=== PATIENT | female | born 1935 | race Caucasian/White ===

== ENCOUNTER 2016-08-15 09:28 | Day surgery (SDC) | payer MEDICARE, OTHER ==
[~2016-08-15 09:28] MED LIST: LACTATED RINGERS 1,000 ML IV ONE
[2016-08-15 09:47] VITALS: RESP 18; TEMP 99.1
[2016-08-15] MEDS ORDERED: TRIAMCINOLONE ACETONIDE 40 MG/ML 1 ML VIAL ONE (10:17)
[2016-08-15] MEDS ORDERED: IOHEXOL 180 MG/ML 1 ML ML ONE (10:17)
--- NOTE | 2016-08-15 10:45 | FL ---
EXAMINATION TYPE: FL guided pain mgmt statistic DATE OF EXAM: 08/15/2016 10:38 AM COMPARISON: NONE HISTORY: Pain Fluoroscopy support supplied to the referring clinician. See dictated report from anesthesia, 8 seco nds fluoroscopy time, 3 intraoperative C-arm images document the procedure
--- NOTE | 2016-08-15 10:52 | P.PCN ---
Date of Procedure: 08/15/16 Anesthesia: local Surgeon: Jr Echeverria Pathology: none sent Condition: stable Disposition: PACU Description of Procedure: PREOPERATIVE DIAGNOSIS: 1-Lumbar radiculitis. POSTOPERATIVE DIAGNOSIS: 1-Lumbar radiculitis. PROCEDURE 1. Lumbar epidural steroid injection under fluoroscopic guidance at the L5-S1 level. 2. Lumbar epidurogram. ANESTHESIA: Local with 1% lidocaine EBL: Minimal PROCEDURE INDICATION: The patient with low back pain and radiculitis symptoms unresponsive to conservative treatment. Fluoroscopy was used to optimize visualization of the needle placement and to maximize safety. Patient scheduled for third LESI, no recent use of blood thinners. PROCEDURE DESCRIPTION / TECHNIQUE: The patient was seen and identified in the preoperative area. Risks, benefits, complications, and alternatives were discussed with the patient, including but not limited to bleeding, infection, nerve damage, allergic reactions to medications, and incomplete pain relief. The patient agreed to proceed with the procedure and signed the consent after all questions were answered. IV was started, and vital signs were stable. Patient was taken to the OR and time out was completed to confirm patient position, procedure, laterality of pain, and allergies. The patient was placed in the prone position on procedure table and a pillow was placed under the abdomen to reduce lumbar lordosis. The lumbosacral area was prepped and draped in the usual sterile fashion. Critical pause was taken. Vital signs were closely monitored during the procedure. Conscious sedation was used during the procedure to decrease patients anxiety. Using anterior-posterior fluoroscopy, the L5-S1 interlaminar space was identified and the skin over this site was marked and then infiltrated with 1% lidocaine subcutaneously in a left paramedian fashion. Subsequently, a 20-gauge 3.5" Tuohy epidural needle was inserted and advanced toward the epidural space using the Loss of resistance technique and guided by AP and lateral fluoroscopy. The correct needle position in the epidural space was verified with the injection of 2 mL of the water soluble contrast dye Omnipaque 300 contrast and observing an excellent epidurogram with the epidural spread of the dye, after negative aspiration for blood and CSF and in the absence of paresthesias. Again after negative aspiration, a 8 ml mixture containing 40 mg of Kenalog and 5 ml of preservative free Normal Saline, and 2 ml of preservative free lidocaine 1% solution was injected and a washout of epidurogram was seen. Needle was withdrawn intact, skin was cleansed, and bandages were applied. COMPLICATIONS: None COMMENTS: DISPOSITION / PLANS: The patient was placed in a supine position and transferred to the recovery area in a stable condition for observation. There was no evidence of lower extremity motor or sensory deficit after the procedure. Patient was discharged from the recovery room after meeting discharge criteria. Home discharge instructions were given to the patient by the staff. The patient was reexamined prior to discharge and there were no issues. The patient will schedule a follow up in clinic in 4-6 weeks.
[2016-08-15 10:58] VITALS: BP 151/82; PULSE 87
== END 2016-08-15 11:08 | disposition home or self-care (01) ==
LOC: ORPAIN 09:28
PROVIDERS: ATTEND Anesthesiology
DX: M54.16 Radiculopathy, lumbar region (principal); G89.29 Other chronic pain; I10 Essential (primary) hypertension; Z79.899 Other long term (current) drug therapy; Z88.0 Allergy status to penicillin; Z88.8 Allergy status to other drugs, medicaments and biological substances
CPT/HCPCS: 62322; J3301; Q9965; 62323

== ENCOUNTER → 2016-10-17 | Outpatient (CLI) | payer MEDICARE, OTHER ==
[2016-10-17 14:59] VITALS: BP 180/95; PULSE 69; RESP 16
--- NOTE | 2016-10-18 12:02 | P.PN ---
Subjective This is follow-up visit for this patient with a history of severe and chronic low back pain secondary to lumbar degenerative disc disease lumbar facet arthropathy, we have done interventional pain management injection, lumbar epidural steroid injections 3, and she continued Severe low back pain mostly on the left side, with radiation to the posterior lateral aspect of her left lower extremity 1-Mobic 7.5 daily Patient denies any side effects of the medication, denies excessive drowsiness or sleepiness, denies suicidal ideation, and reports that the current pain medication is NOT helping To control the pain and improve activity of daily living Physical Examinations : 1-Constitutiona : Cooperative , not in acute distress . 2-HEENT : nech ; supple , no Lymphadenopathy , no Thyromegaly , normal thyroid size . eyes : no ptosis , no icterus, no photophobia . ENT : normal of hearing , normal oropharynx , no Thrush . 3- Respiratory : Chest clear to auscultations Bilaterally , no wheezing , no Rhonchi . 4- Cardiovascular : regular rate and rhythem , S1 , S2 , no S3 , no S4. 5- Gastrointestinal : abdomen soft no tenderness , bowel sounds positive all four quadrents , no organomegally . 6- Genitourinary : Defferred . 7- neurologic : Cranial nerve II to XII intact , no focal neurological deffecit . 8-psychatric : alert , oriented X 3 , appropriate affect , intact judgment and insight . 9-Lymphatic : no Lymphadenopathy . 10- musculoskeltal : exams of the cervical spine = motor strength normal bilateral upper extremities facet loading test cervical area positive. exams of the Lumber spine = motor strength lower extremities ,thigh and legs .5/5 deep tendon reflexes : normal Knee Jerk , normal ankle Jerk . lumber facet Loading Test positive on the left side strait leg raising test negative bilaterally Fabere test negative bilaterally Range of motion: Range of motion in flexion of the lumbar spine 30 degrees Range of motion range of motion of extension of the lumbar spine 10 Assessment and plan = - Chronic low back pain secondary to lumbar degenerative disc disease , lumbar spondylosis with facet arthropathy without myelopathy , Patient continued to have low back pain after lumbar epidural steroid injection - diagnoses, prognosis, and treatment options including but not limited to physical therapy, surgical interventions, interventional therapies , and medication management including narcotics and adjuvant medication were discussed with the patient and all The questions answered, patient will be good candidate to have diagnostic medial branch block lumbar area on the left side She will be scheduled to have left-sided medial branch block and L3-4/ L4 5/L5-S1 Objective - Vital Signs Vital signs: Vital Signs Temp Pulse 69 10/17/16 14:46 Resp 16 10/17/16 14:46 BP 180/95 10/17/16 14:46 Pulse Ox 95 10/17/16 14:46 Intake & Output 10/17/16 10/18/16 10/18/16 18:59 06:59 18:59 Weight 60.328 kg
== END ==
LOC: PNWHC3 14:09
PROVIDERS: ATTEND Specialist
DX: M51.36 Other intervertebral disc degeneration, lumbar region (principal); M47.816 Spondylosis without myelopathy or radiculopathy, lumbar region; M46.86 Other specified inflammatory spondylopathies, lumbar region; G89.29 Other chronic pain; Z79.891 Long term (current) use of opiate analgesic
CPT/HCPCS: 99211

== ENCOUNTER 2016-11-22 06:34 | Day surgery (SDC) | payer MEDICARE, OTHER ==
[2016-11-22 07:45] VITALS: TEMP 98.3
[2016-11-22] MEDS ORDERED: LACTATED RINGERS 1,000 ML IV SCH (07:45)
--- NOTE | 2016-11-22 07:51 | P.PCN ---
Date of Procedure: 11/22/16 Preoperative Diagnosis: Lumbar spondylosis without myelopathy Postoperative Diagnosis: Same as above Procedure(s) Performed: Lumbar bilateral medial branch block under fluoroscopic guidance Anesthesia: local, other Surgeon: Zahira Galvin Pathology: none sent Condition: stable Disposition: PACU Description of Procedure: The patient was seen in the preop holding area consent was obtained then she was brought into the procedure room and placed in prone position. The patient gets pain on both sides of her spine and that's why the procedure was changed from doing medial branch block on the left side only to doing bilateral medial branch block. Skin was prepped with ChloraPrep and draped in a sterile manner. Lidocaine 1% was used to numb the skin up at the target points that were chosen as follows: For the L5-S1 level which corresponds to the dorsal ramus of L5 the target points were of the superior medial aspect of the sacral ala on each side of the spine on the AP view of fluoroscopy for the L3, and L4 medial branches the target points were the connection between the transverse process and the superior articular process of L4 and L5 vertebra respectively on the oblique view of fluoroscopy. I used 22-gauge 3-1/2 inch Quincke spinal needle for this procedure and after contacting bone at the target points mentioned above I injected 1 mL of Marcaine 0.5%. Tolerated procedure well.
[2016-11-22] MEDS ORDERED: BUPIVACAINE (PF) 0.5% 30 ML VIAL ONE (07:55)
[2016-11-22 08:27] VITALS: BP 157/87; PULSE 66; RESP 16
--- NOTE | 2016-11-22 09:29 | FL ---
EXAMINATION TYPE: FL guided pain mgmt statistic DATE OF EXAM: 11/22/2016 8:20 AM HISTORY: Pain bilat lumbar facets. dr guardado. 8 sec fl time. 3 pics scanned
== END 2016-11-22 08:31 | disposition home or self-care (01) ==
LOC: ORPAIN 06:34
PROVIDERS: ATTEND Anesthesiology
DX: M47.816 Spondylosis without myelopathy or radiculopathy, lumbar region (principal); Z88.0 Allergy status to penicillin

== ENCOUNTER → 2017-10-29 | Outpatient (CLI) | payer MEDICARE, OTHER ==
--- NOTE | 2017-10-29 13:40 | MR ---
EXAMINATION TYPE: MR lumbar spine wo con DATE OF EXAM: 10/29/2017 COMPARISON: 04/08/2016 HISTORY: Back pain radiating to left leg TECHNIQUE: T1 and T2 axial and sagittal images of the lumbar spine are submitted. FINDINGS: There is no abnormal signal seen within the visualized spinal cord or paraspinal soft tissu es. At L1-2 there is moderate degenerative disc disease and facet arthropathy with ligamentum flavum hype rtrophy and circumferential disc bulging. Mild to moderate bilateral foraminal encroachment and borde rline canal stenosis. Stable rounded area of low signal within the L2 vertebral segment unchanged fro m the prior exam of 2016. At L2-3 there is moderate degenerative disc disease with facet hypertrophy and ligamentum flavum hype rtrophy. Diffuse disc bulging noted. There is effacement of thecal sac and mild central stenosis. Fi ndings stable. At L3-4 there is degenerative disc disease with diffuse disc bulging. Facet arthropathy and ligamentu m flavum hypertrophy are noted. There is mild central stenosis and mild bilateral foraminal encroachm ent. Findings stable. At L4-5 there is moderate to severe degenerative disc disease. More advanced facet arthropathy and li gamentum flavum hypertrophy noted and there is a central and left paracentral disc herniation. This r esults in severe canal stenosis and moderate to severe left foraminal encroachment. Mild right-sided foraminal encroachment. Finding is similar to the prior exam. At L5-S1 there is mild disc desiccation with facet arthropathy and ligamentum flavum hypertrophy. Charu ral foramina are patent bilaterally. No Canal stenosis. IMPRESSION: 1. Multilevel degenerative disc disease and hypertrophic changes with multilevel disc bulging. Findin gs result in multilevel canal stenosis which appears to be stable and the most marked findings seen a t L4-L5 where a central and left paracentral disc herniation results in severe canal stenosis. 2. Rounded bone lesion L2 vertebral segment appears low in signal on T1 and T2-weighted images and is unchanged from 2016.
== END | disposition home or self-care (01) ==
LOC: RADMRIMAIN 12:42
PROVIDERS: ATTEND Internal Medicine
DX: M48.061 Spinal stenosis, lumbar region without neurogenic claudication (principal); M51.16 Intervertebral disc disorders with radiculopathy, lumbar region; M53.86 Other specified dorsopathies, lumbar region; M89.8X8 Other specified disorders of bone, other site
CPT/HCPCS: 72148

== ENCOUNTER → 2018-03-11 | Outpatient (CLI) | payer MEDICARE, OTHER ==
--- NOTE | 2018-03-11 15:18 | US ---
EXAMINATION TYPE: US pelvic complete DATE OF EXAM: 03/11/2018 COMPARISON: NONE CLINICAL HISTORY: N81.9 Pelvic Prolapse. Patient was told possibly bowel prolapsing into vagina; harris ent denies pain and no vaginal bleeding; TECHNIQUE: Transabdominal (TA). Transabdominal sonographic images of the pelvis were acquired. Date of LMP: approximately age 55 EXAM MEASUREMENTS: Uterus: 5.6 x 4.4 x 2.3 cm Endometrial Stripe: 2.7mm Right Ovary: 1.6 x 1.3 x 1.1 cm Left Ovary: 1.8 x 1.4 x 1.1 cm 1. Uterus: Anteverted; heterogeneous appearance 2. Endometrium: thickness is wnl for post menopause 3. Right Ovary: appears wnl 4. Left Ovary: appears wnl 5. Bilateral Adnexa: wnl 6. Posterior cul-de-sac: wnl IMPRESSION: 1. No abnormal endometrial thickening. Unremarkable appearance of the ovaries. 2. Bowel. Shadowing in evaluation for prolapse is limited. CT pelvis could be performed to evaluate f or pelvic floor relaxation and rectocele if there is further concern.
== END | disposition home or self-care (01) ==
LOC: RADUSWWP 14:14
PROVIDERS: ATTEND Obstetrics & Gynecology
DX: N81.9 Female genital prolapse, unspecified (principal)
CPT/HCPCS: 76856

== ENCOUNTER → 2018-11-27 | Outpatient (CLI) | payer MEDICARE, OTHER ==
--- NOTE | 2018-11-28 10:42 | CT ---
EXAMINATION TYPE: CT orbits wo/w con DATE OF EXAM: 11/27/2018 COMPARISON: 12/23/2010 HISTORY: cyst above right eye CT DLP: 768.8 mGycm Automated exposure control for dose reduction was used. CONTRAST: Performed with IV Contrast, patient injected with 80cc mL of Isovue 300. FINDINGS: Maxillary spine is intact. There is opacification with air-fluid level within the left maxillary sinu s. There are scattered areas of ethmoid air cell mucosal thickening. Sphenoid sinuses are clear. Fron angela sinuses are clear. Mastoid air cells are clear. Torus tubarius and fossa of Rosenmuller appear wi thin normal limits. The globes are symmetrical. Intraconal and extraconal fat appears normal. Extraocular muscles are nor mal. There is a oval solid appearing density along the medial upper right orbit measuring 1.2 x 0.7 cm. Th is was not present in 2010. This comes in close approximation with the globe fat line appears preserv ed adjacent separate. This is anterior to the ocular muscles. This does appear to be in close approxi mation with the superior ophthalmic vein. IMPRESSION: 1. SOLID APPEARING 1.2 X 0.7 CM AREA SUPERIOR MEDIAL RIGHT SUPERFICIAL SOFT TISSUES. 2. ACUTE LEFT MAXILLARY SINUSITIS. MUCOSAL THICKENING IS THROUGH BILATERAL ETHMOID AIR CELLS.
== END | disposition home or self-care (01) ==
LOC: RADCTMAIN 15:42
PROVIDERS: ATTEND Ophthalmology
DX: H05.811 Cyst of right orbit (principal); Z88.0 Allergy status to penicillin; Z91.018 Allergy to other foods
CPT/HCPCS: 82565; 84520; 70482; 36415; Q9967

== ENCOUNTER → 2019-03-26 | Outpatient (CLI) | payer MEDICARE, OTHER ==
--- NOTE | 2019-03-27 14:31 | MM ---
Reason for exam: screening (asymptomatic). Last mammogram was performed 3 years and 5 months ago. History: Patient is postmenopausal. Took estrogen for 5 years beginning at age 55. Physical Findings: A clinical breast exam by your physician is recommended on an annual basis and results should be correlated with mammographic findings. MG 3D Screening Mammo W/Cad Bilateral CC and MLO view(s) were taken. Prior study comparison: October 21, 2015, bilateral MG screening mammo w CAD. August 14, 2013, [facility] DIGITAL RIGHT MAMMOGRAM w/CAD. The breast tissue is heterogeneously dense. This may lower the sensitivity of mammography. There are benign appearing round calcifications in the right anterior breast. Asymmetric breast tissue left inferior breast, stable. There is no discrete abnormality. ASSESSMENT: Benign, BI-RAD 2 RECOMMENDATION: Routine screening mammogram of both breasts in 1 year.
== END | disposition home or self-care (01) ==
LOC: RADMAMWWP 10:53
PROVIDERS: ATTEND Internal Medicine
DX: Z12.31 Encounter for screening mammogram for malignant neoplasm of breast (principal)
CPT/HCPCS: 77063; 77067

== ENCOUNTER 2019-05-07 10:18 | Emergency (ER) | payer MEDICARE, OTHER ==
[2019-05-07 10:24] VITALS: RESP 18; TEMP 97.5
[2019-05-07] MEDS ORDERED: SODIUM CHLORIDE 0.9% 1,000 ML IV STA (10:48)
[2019-05-07] MEDS ORDERED: ONDANSETRON 4 MG/2 ML VIAL IVP STA (10:48)
[2019-05-07] MEDS ORDERED: MECLIZINE 12.5 MG TAB PO STA (10:48)
--- NOTE | 2019-05-07 10:54 | ED ---
General Adult HPI - General Chief complaint: Nausea/Vomiting/Diarrhea Stated complaint: abdominal pain/vomiting Time Seen by Provider: 05/07/19 10:37 Source: patient, RN notes reviewed Mode of arrival: wheelchair Limitations: no limitations - History of Present Illness Initial comments: This 83-year-old female presents emergency Department chief complaint of dizziness, nausea vomiting. Patient states last night she ate some spinach steak. Patient states that she started feeling ill a few hours after which she started vomiting. Patient states she felt dizzy woke up today dry heaving felt dizzy. Patient denies any current headache, blurred vision. Patient states that she says dizziness at rest but is slightly improved. She states it greatly increases with standing up. She states that she gets hot and cold flashes. Denies any chest pain or palpitations. Patient does have a history of hypertension and hypothyroidism. Patient denies any fevers or chills no cough cold-like symptoms no sick contacts. - Related Data Home Medications Medication Instructions Recorded Confirmed Multivitamins, Thera [Multivitamin] 1 tab PO DAILY 05/03/16 05/07/19 ALPRAZolam [Xanax] 0.5 mg PO DAILY PRN 05/07/19 05/07/19 Calcium Polycarbophil [Fibercon] 625 mg PO DAILY 05/07/19 05/07/19 Levothyroxine Sodium [Synthroid] 50 mcg PO DAILY 05/07/19 05/07/19 Losartan [Cozaar] 50 mg PO DAILY 05/07/19 05/07/19 Lutein 20 mg PO DAILY 05/07/19 05/07/19 Hankamer-3 Fatty Acids/Fish Oil [Fish 1 cap PO BID 05/07/19 05/07/19 Oil 1,000 mg Softgel] Triamterene-Hctz 37.5-25Mg 1 cap PO DAILY 05/07/19 05/07/19 [Dyazide 37.5-25 Capsule] Verapamil HCl [Verapamil ER] 120 mg PO DAILY 05/07/19 05/07/19 Vit C/E/Zn/Coppr/Lutein/Zeaxan 1 cap PO BID 05/07/19 05/07/19 [Preservision Areds 2 Softgel] cycloSPORINE [Restasis] 1 drop BOTH EYES BID 05/07/19 05/07/19 Previous Rx's Medication Instructions Recorded Meclizine [Antivert] 25 mg PO TID PRN #15 tab 05/07/19 Ondansetron Odt [Zofran Odt] 4 mg PO Q8HR PRN #14 tab 05/07/19 Allergies Allergy/AdvReac Type Severity Reaction Status Date / Time Penicillins Allergy Rash/Hives Verified 05/07/19 10:39 caffeine AdvReac Nausea & Verified 05/07/19 10:39 Vomiting fentanyl AdvReac Nausea & Verified 05/07/19 10:39 Vomiting midazolam [From Versed] AdvReac Nausea & Verified 05/07/19 10:39 Vomiting Review of Systems ROS Statement: Those systems with pertinent positive or pertinent negative responses have been documented in the HPI. ROS Other: All systems not noted in ROS Statement are negative. Past Medical History Past Medical History: Hypertension, Thyroid Disorder Additional Past Medical History / Comment(s): pain left leg bulging disc and pinched nerve History of Any Multi-Drug Resistant Organisms: None Reported Past Surgical History: Cholecystectomy Past Anesthesia/Blood Transfusion Reactions: Motion Sickness, Postoperative Nausea & Vomiting (PONV) Past Psychological History: No Psychological Hx Reported Smoking Status: Former smoker Past Alcohol Use History: Occasional Past Drug Use History: None Reported - Past Family History Mother Family Medical History: Cancer Additional Family Medical History / Comment(s): lung Father Family Medical History: Cancer Additional Family Medical History / Comment(s): sinuses General Exam Limitations: no limitations General appearance: alert, in no apparent distress Head exam: Present: atraumatic, normocephalic, normal inspection Eye exam: Present: normal appearance, PERRL, EOMI. Absent: scleral icterus, conjunctival injection, periorbital swelling ENT exam: Present: normal exam, normal oropharynx, mucous membranes moist, TM's normal bilaterally Neck exam: Present: normal inspection, full ROM. Absent: tenderness, meningismus, lymphadenopathy Respiratory exam: Present: normal lung sounds bilaterally. Absent: respiratory distress, wheezes, rales, rhonchi, stridor Cardiovascular Exam: Present: regular rate, normal rhythm, normal heart sounds. Absent: systolic murmur, diastolic murmur, rubs, gallop, clicks GI/Abdominal exam: Present: soft, normal bowel sounds. Absent: distended, tenderness, guarding, rebound, rigid Neurological exam: Present: alert, oriented X3, CN II-XII intact Skin exam: Present: warm, dry, intact, normal color. Absent: rash Course Vital Signs 05/07/19 05/07/19 10:22 12:51 Temperature 97.5 F L Pulse Rate 78 70 Respiratory 18 18 Rate Blood Pressure 198/84 162/99 O2 Sat by Pulse 98 96 Oximetry EKG Findings - EKG Comments: EKG Findings:: EKG performed at 12:16 sinus rhythm with PAC, rate of 70. 24 QRS 82 QT/QTC 424/457 - EKG Results: EKG: interpreted by [facility] Medical Decision Making - Medical Decision Making Patient's workup was benign including labs, EKG and CT of brain. Patient was hydrated, given antiemetics and antiemetics and Antivert. Patient feels greatly improved she is a plan but no dizziness. Patient be discharged return parameters discussed. - Lab Data Result diagrams: 05/07/19 11:15 05/07/19 11:15 Lab Results 05/07/19 05/07/19 05/07/19 Range/Units 11:15 11:15 11:15 WBC 6.0 (3.8-10.6) k/uL RBC 4.66 (3.80-5.40) m/uL Hgb 14.9 (11.4-16.0) gm/dL Hct 43.8 (34.0-46.0) % MCV 94.0 (80.0-100.0) fL MCH 31.9 (25.0-35.0) pg MCHC 33.9 (31.0-37.0) g/dL RDW 12.7 (11.5-15.5) % Plt Count 172 (150-450) k/uL Neutrophils % 79 % Lymphocytes % 10 % Monocytes % 6 % Eosinophils % 1 % Basophils % 0 % Neutrophils # 4.7 (1.3-7.7) k/uL Lymphocytes # 0.6 L (1.0-4.8) k/uL Monocytes # 0.4 (0-1.0) k/uL Eosinophils # 0.1 (0-0.7) k/uL Basophils # 0.0 (0-0.2) k/uL Sodium 139 (137-145) mmol/L Potassium 4.4 (3.5-5.1) mmol/L Chloride 106 (98-107) mmol/L Carbon Dioxide 23 (22-30) mmol/L Anion Gap 10 mmol/L BUN 29 H (7-17) mg/dL Creatinine 0.89 (0.52-1.04) mg/dL Est GFR (CKD-EPI)AfAm 69 (>60 ml/min/1.73 sqM) Est GFR (CKD-EPI)NonAf 60 (>60 ml/min/1.73 sqM) Glucose 110 H (74-99) mg/dL Calcium 10.0 (8.4-10.2) mg/dL Total Bilirubin 0.7 (0.2-1.3) mg/dL AST 37 H (14-36) U/L ALT 20 (9-52) U/L Alkaline Phosphatase 66 (38-126) U/L Troponin I <0.012 (0.000-0.034) ng/mL Total Protein 7.7 (6.3-8.2) g/dL Albumin 4.7 (3.5-5.0) g/dL Lipase 92 (23-300) U/L Urine Color Urine Appearance (Clear) Urine pH (5.0-8.0) Ur Specific [place] (1.001-1.035) Urine Protein (Negative) Urine Glucose (UA) (Negative) Urine Ketones (Negative) Urine Blood (Negative) Urine Nitrite (Negative) Urine Bilirubin (Negative) Urine Urobilinogen (<2.0) mg/dL Ur Leukocyte Esterase (Negative) Urine RBC (0-5) /hpf Urine WBC (0-5) /hpf Ur Squamous Epith Cells (0-4) /hpf Urine Bacteria (None) /hpf Urine Mucus (None) /hpf 05/07/19 Range/Units 12:56 WBC (3.8-10.6) k/uL RBC (3.80-5.40) m/uL Hgb (11.4-16.0) gm/dL Hct (34.0-46.0) % MCV (80.0-100.0) fL MCH (25.0-35.0) pg MCHC (31.0-37.0) g/dL RDW (11.5-15.5) % Plt Count (150-450) k/uL Neutrophils % % Lymphocytes % % Monocytes % % Eosinophils % % Basophils % % Neutrophils # (1.3-7.7) k/uL Lymphocytes # (1.0-4.8) k/uL Monocytes # (0-1.0) k/uL Eosinophils # (0-0.7) k/uL Basophils # (0-0.2) k/uL Sodium (137-145) mmol/L Potassium (3.5-5.1) mmol/L Chloride (98-107) mmol/L Carbon Dioxide (22-30) mmol/L Anion Gap mmol/L BUN (7-17) mg/dL Creatinine (0.52-1.04) mg/dL Est GFR (CKD-EPI)AfAm (>60 ml/min/1.73 sqM) Est GFR (CKD-EPI)NonAf (>60 ml/min/1.73 sqM) Glucose (74-99) mg/dL Calcium (8.4-10.2) mg/dL Total Bilirubin (0.2-1.3) mg/dL AST (14-36) U/L ALT (9-52) U/L Alkaline Phosphatase (38-126) U/L Troponin I (0.000-0.034) ng/mL Total Protein (6.3-8.2) g/dL Albumin (3.5-5.0) g/dL Lipase (23-300) U/L Urine Color Yellow Urine Appearance Clear (Clear) Urine pH 5.5 (5.0-8.0) Ur Specific [place] 1.019 (1.001-1.035) Urine Protein Negative (Negative) Urine Glucose (UA) Negative (Negative) Urine Ketones 1+ H (Negative) Urine Blood Negative (Negative) Urine Nitrite Negative (Negative) Urine Bilirubin Negative (Negative) Urine Urobilinogen <2.0 (<2.0) mg/dL Ur Leukocyte Esterase Large H (Negative) Urine RBC 1 (0-5) /hpf Urine WBC 7 H (0-5) /hpf Ur Squamous Epith Cells 2 (0-4) /hpf Urine Bacteria Few H (None) /hpf Urine Mucus Occasional H (None) /hpf Disposition Clinical Impression: Dehydration, Nausea & vomiting, Vertigo Disposition: HOME SELF-CARE Condition: Stable Instructions (If sedation given, give patient instructions): Acute Nausea and Vomiting (ED), Vertigo (ED) Additional Instructions: Please return to the Emergency Department if symptoms worsen or any other concerns. Prescriptions: Meclizine [Antivert] 25 mg PO TID PRN #15 tab PRN Reason: Vertigo Ondansetron Odt [Zofran Odt] 4 mg PO Q8HR PRN #14 tab PRN Reason: Nausea Is patient prescribed a controlled substance at d/c from ED?: No Referrals: Clem Mercado MD [Primary Care Provider] - 1-2 days Time of Disposition: 14:02
[2019-05-07 11:29] LABS: Basophils % (A) 0 %; Eosinophils # (A) 0.1 k/uL (0-0.7); Eosinophils % (A) 1 %; HCT 43.8 % (34.0-46.0); HGB 14.9 gm/dL (11.4-16.0); Lymphocytes # (A) 0.6 k/uL (1.0-4.8); Lymphocytes % (A) 10 %; MCH 31.9 pg (25.0-35.0); MCHC 33.9 g/dL (31.0-37.0); Mean Platelet Volume 6.8; Monocytes # (A) 0.4 k/uL (0-1.0); Monocytes % (A) 6 %; Neutrophils # (A) 4.7 k/uL (1.3-7.7); Neutrophils % (A) 79 %; Platelet Count 172 k/uL (150-450); RBC 4.66 m/uL (3.80-5.40); RDW 12.7 % (11.5-15.5)
[2019-05-07 11:50] LABS: Albumin 4.7 g/dL (3.5-5.0); Total Bilirubin 0.7 mg/dL (0.2-1.3); Total Protein 7.7 g/dL (6.3-8.2)
[2019-05-07 11:51] LABS: Potassium 4.4 mmol/L (3.5-5.1)
--- NOTE | 2019-05-07 12:00 | CT ---
EXAMINATION TYPE: CT brain wo con DATE OF EXAM: 05/07/2019 COMPARISON: Prior CT brain 11/20/2014 HISTORY: Dizziness CT DLP: 1055.4 mGycm Automated exposure control for dose reduction was used. Helical imaging through the brain. FINDINGS: Exam is stable. There is no hemorrhage or hydrocephalus. Some cerebral vascular calcifications are no hero. Atrophy is likely age-related. Periventricular white matter shows patchy low attenuation. Some p robable choroidal fissure cysts on the left are again noted. The calvarium is intact. Paranasal sinus es and mastoid air cells as visualized are normal. Orbits show symmetric appearance in the visualized portions. IMPRESSION: NO ACUTE ABNORMALITY. 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
[2019-05-07 12:54] VITALS: BP 162/99; PULSE 70
[2019-05-07] MEDS ORDERED: METOCLOPRAMIDE 5 MG/ML 2 ML VIAL IVP STA (13:26)
[2019-05-07 13:37] LABS: Appearance,Urine Clear (Clear); Bacteria,Urine Few /hpf; Bilirubin,Urine Negative (Negative); Blood,Urine Negative (Negative); Color,Urine Yellow; Glucose,Urine (UA) Negative (Negative); Ketones,Urine 1+ (Negative); Leukocyte Esterase,Urine Large (Negative); Mucus,Urine Occasional /hpf; Nitrite,Urine Negative (Negative); PH, Urine 5.5 (5.0-8.0); Protein,Urine Negative (Negative); RBC,Urine 1 /hpf (0-5); Specific Gravity,Urine 1.019 (1.001-1.035); Squamous Epithelial Cell,Urine 2 /hpf (0-4); Urobilinogen,Urine <2.0 mg/dL (<2.0)
== END 2019-05-07 14:19 | disposition home or self-care (01) ==
LOC: EC 10:18
DX: E86.0 Dehydration (principal); R11.2 Nausea with vomiting, unspecified; I10 Essential (primary) hypertension; E03.9 Hypothyroidism, unspecified; E07.9 Disorder of thyroid, unspecified; Z79.890 Hormone replacement therapy; Z79.899 Other long term (current) drug therapy; Z88.0 Allergy status to penicillin; Z88.5 Allergy status to narcotic agent; Z88.8 Allergy status to other drugs, medicaments and biological substances; Z91.048 Other nonmedicinal substance allergy status; Z87.891 Personal history of nicotine dependence; Z90.49 Acquired absence of other specified parts of digestive tract
CPT/HCPCS: 36415; 93005; 80053; 83690; 84484; 85025; 81001; 70450; 96374; 96375; 96361 ×3; 99284; J2765; J2405

== ENCOUNTER 2019-08-09 12:24 | Emergency (ER) | payer MEDICARE, OTHER ==
[2019-08-09 12:37] VITALS: BP 137/76; PULSE 69; RESP 16; TEMP 97.5
--- NOTE | 2019-08-09 12:51 | ED ---
Upper Extremity HPI - General Chief Complaint: Extremity Injury, Upper Stated Complaint: Fall Time Seen by Provider: 08/09/19 12:37 Source: patient, RN notes reviewed Mode of arrival: ambulatory Limitations: no limitations - History of Present Illness Initial Comments: This 84-year-old female who states she slipped and fell in the shower earlier today when reaching for something she states for was slippery she fell onto her right forearm she complains or right forearm pain also right distal anterior lateral leg pain. She does state the leg pain has been a while since dropping a paper weight on it lasts brain but she's not sure she reinjured it or not. She did catch herself so she did fall and told a controlled fashion. No head neck or back pain no other modifying factors MD Complaint: Injury to:: right, forearm - Related Data Home Medications Medication Instructions Recorded Confirmed Multivitamins, Thera [Multivitamin] 1 tab PO DAILY 05/03/16 05/07/19 ALPRAZolam [Xanax] 0.5 mg PO DAILY PRN 05/07/19 05/07/19 Calcium Polycarbophil [Fibercon] 625 mg PO DAILY 05/07/19 05/07/19 Levothyroxine Sodium [Synthroid] 50 mcg PO DAILY 05/07/19 05/07/19 Losartan [Cozaar] 50 mg PO DAILY 05/07/19 05/07/19 Lutein 20 mg PO DAILY 05/07/19 05/07/19 [place]-3 Fatty Acids/Fish Oil [Fish 1 cap PO BID 05/07/19 05/07/19 Oil 1,000 mg Softgel] Triamterene-Hctz 37.5-25Mg 1 cap PO DAILY 05/07/19 05/07/19 [Dyazide 37.5-25 Capsule] Verapamil HCl [Verapamil ER] 120 mg PO DAILY 05/07/19 05/07/19 Vit C/E/Zn/Coppr/Lutein/Zeaxan 1 cap PO BID 05/07/19 05/07/19 [Preservision Areds 2 Softgel] cycloSPORINE [Restasis] 1 drop BOTH EYES BID 05/07/19 05/07/19 Previous Rx's Medication Instructions Recorded Meclizine [Antivert] 25 mg PO TID PRN #15 tab 05/07/19 Ondansetron Odt [Zofran Odt] 4 mg PO Q8HR PRN #14 tab 05/07/19 Allergies Allergy/AdvReac Type Severity Reaction Status Date / Time Penicillins Allergy Rash/Hives Verified 08/09/19 12:35 caffeine AdvReac Nausea & Verified 08/09/19 12:35 Vomiting fentanyl AdvReac Nausea & Verified 08/09/19 12:35 Vomiting midazolam [From Versed] AdvReac Nausea & Verified 08/09/19 12:35 Vomiting Review of Systems ROS Statement: Those systems with pertinent positive or pertinent negative responses have been documented in the HPI. ROS Other: All systems not noted in ROS Statement are negative. Past Medical History Past Medical History: Hypertension, Thyroid Disorder Additional Past Medical History / Comment(s): pain left leg bulging disc and pinched nerve History of Any Multi-Drug Resistant Organisms: None Reported Past Surgical History: Cholecystectomy Past Anesthesia/Blood Transfusion Reactions: Motion Sickness, Postoperative Nausea & Vomiting (PONV) Past Psychological History: No Psychological Hx Reported Smoking Status: Former smoker Past Alcohol Use History: Occasional Past Drug Use History: None Reported - Past Family History Mother Family Medical History: Cancer Additional Family Medical History / Comment(s): lung Father Family Medical History: Cancer Additional Family Medical History / Comment(s): sinuses General Exam - General Exam Comments Initial Comments: This is a well-developed well-nourished awake alert oriented history female with a [place] Coma Scale of 15 Limitations: no limitations General appearance: alert, in no apparent distress Head exam: Present: atraumatic, normocephalic, normal inspection Eye exam: Present: normal appearance, PERRL, EOMI. Absent: scleral icterus, conjunctival injection, periorbital swelling ENT exam: Present: normal exam, mucous membranes moist Neck exam: Present: normal inspection, full ROM. Absent: tenderness, meningismus, lymphadenopathy Respiratory exam: Absent: respiratory distress, wheezes, rales, rhonchi, stridor Cardiovascular Exam: Present: regular rate, normal rhythm, normal heart sounds. Absent: systolic murmur, diastolic murmur, rubs, gallop, clicks GI/Abdominal exam: Absent: distended, tenderness, guarding, rebound, rigid Extremities exam: Present: full ROM, normal capillary refill, other (Tennis palpation of the mid right medial forearm with tenderness palpation evidence of a hematoma. No open wound seen. No sensorimotor vascular deficits also tenderness palpation of the distal right anterior lateral tibia no open wound seen. No sensorimotor vascular deficits). Absent: tenderness, pedal edema, joint swelling, calf tenderness Back exam: Present: normal inspection Neurological exam: Present: alert, oriented X3, CN II-XII intact Psychiatric exam: Present: normal affect, normal mood Skin exam: Present: warm, dry, intact, normal color. Absent: rash Course Vital Signs 08/09/19 12:33 Temperature 97.5 F L Pulse Rate 69 Respiratory 16 Rate Blood Pressure 137/76 O2 Sat by Pulse 98 Oximetry Medical Decision Making - Medical Decision Making I did discuss findings with patient the presentation consistent with right forearm contusion also right leg contusion to Medicare indicated only at this time. - Radiology Data Radiology results: image reviewed (I did review the imaging no acute findings.) Disposition Clinical Impression: Contusion of right forearm, Contusion of right leg Disposition: HOME SELF-CARE Condition: Good Instructions (If sedation given, give patient instructions): Contusion in Adults (ED) Additional Instructions: Tylenol for pain as needed, ice times 2448 hrs. when necessary Is patient prescribed a controlled substance at d/c from ED?: No Referrals: Clem Mercado MD [Primary Care Provider] - 1-2 days
--- NOTE | 2019-08-09 13:31 | XR ---
EXAMINATION TYPE: XR forearm RT , 2 VIEWS DATE OF EXAM ORDERED: 08/09/2019 HISTORY: Fall in shower with mid forearm pain. COMPARISON: None. FINDINGS: No long bone fracture other bony lesion is seen. IMPRESSION: NO ACUTE OSSEOUS LESION.
--- NOTE | 2019-08-09 13:32 | XR ---
EXAMINATION TYPE: XR tibia fibula RT , 2 VIEWS DATE OF EXAM ORDERED: 08/09/2019 HISTORY: Fall in shower with right tib-fib pain. COMPARISON: None. FINDINGS: No long bone fracture or dislocation is seen. No ankle joint effusion is seen. IMPRESSION: NO ACUTE OSSEOUS LESION.
== END 2019-08-09 13:47 | disposition home or self-care (01) ==
LOC: EC 12:24
DX: S50.11XA Contusion of right forearm, initial encounter (principal); S80.11XA Contusion of right lower leg, initial encounter; I10 Essential (primary) hypertension; E07.9 Disorder of thyroid, unspecified; Z87.891 Personal history of nicotine dependence; Z88.0 Allergy status to penicillin; Z88.5 Allergy status to narcotic agent; Z88.8 Allergy status to other drugs, medicaments and biological substances; Z79.890 Hormone replacement therapy; Z79.899 Other long term (current) drug therapy; W18.2XXA Fall in (into) shower or empty bathtub, initial encounter; Y93.89 Activity, other specified; Y92.002 Bathroom of unspecified non-institutional (private) residence as the place of occurrence of the external cause
CPT/HCPCS: 99283

== ENCOUNTER → 2019-09-17 | Outpatient (CLI) | payer MEDICARE, OTHER ==
--- NOTE | 2019-09-17 15:50 | CT ---
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 TECHNIQUE: Contiguous axial scanning of the chest without IV contrast. Coronal and sagittal reconstru ctions performed. CT DLP: 141.3 mGycm Automated exposure control for dose reduction was used. FINDINGS: Heart normal size without pericardial effusion. Scattered coronary artery calcifications are present. Some focal fluid in the anterior mediastinum measures 4.2 x 1.8 x 1.3 cm (axial image 28 and sagitta l image 51) and could represent fluid within a pericardial recess or a pericardiac cyst. Moderate atherosclerotic arch calcifications with conventional arch vessel branching anatomy. Ectatic upper descending thoracic aorta at 3.2 cm. 7 mm precarinal lymph node. Otherwise, no thoracic lymphadenopathy by CT size criteria. Mild biapical pleural-parenchymal scarring. Mild centrilobular emphysema. Subpleural reticulations an d minimal traction bronchiectasis within the basilar lower lobes. 4 mm peripheral right lower lobe pulmonary nodule, axial image 33 No consolidation or pleural effusion. Visualized upper abdomen shows moderate atherosclerotic calcifications throughout the abdominal aorta . 5 mm nonobstructive left renal calculus. Mild to moderate stool burden. Bones: Mild degenerative disc disease within the thoracic spine. IMPRESSION: 1. SOME BIBASILAR INTERSTITIAL FIBROSIS WITH MILD TRACTION BRONCHIOLECTASIS. 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 FINDINGS MAY ALSO BE SEEN WITH CONNECTIVE TISSUE DISORDERS. 2. NO SUSPICIOUS THORACIC LYMPHADENOPATHY. 3. ONE-YEAR FOLLOW-UP CT CHEST RECOMMENDED FOR A 4 MM RIGHT LOWER LOBE PULMONARY NODULE. 4. A 4.2 X 1.8 CM AREA OF FOCAL FLUID WITHIN THE ANTERIOR MEDIASTINUM COULD REPRESENT FLUID HEIGHT WI THIN A PERICARDIAL RECESS OR PERICARDIAC CYST. 5. A 5 MM NONOBSTRUCTIVE LEFT RENAL CALCULUS.
== END | disposition home or self-care (01) ==
LOC: RADCTMAIN 11:52
PROVIDERS: ATTEND Internal Medicine Hematology & Oncology
DX: J47.9 Bronchiectasis, uncomplicated (principal); J84.10 Pulmonary fibrosis, unspecified; R91.1 Solitary pulmonary nodule; C88.4 Extranodal marginal zone B-cell lymphoma of mucosa-associated lymphoid tissue [MALT-lymphoma]; Z88.0 Allergy status to penicillin
CPT/HCPCS: 36415; 71250; 82565; 84520

== ENCOUNTER 2019-10-05 10:52 | Emergency (ER) | payer MEDICARE, OTHER ==
[2019-10-05 11:16] VITALS: BP 154/85; PULSE 70; RESP 18; TEMP 97.8
--- NOTE | 2019-10-05 11:33 | ED ---
ENT HPI - General Chief complaint: ENT Stated complaint: Post Op Ear Pain Time Seen by Provider: 10/05/19 11:10 Source: patient, RN notes reviewed, old records reviewed Mode of arrival: ambulatory Limitations: no limitations - History of Present Illness Initial comments: Patient is a 84-year-old female who presents emergency department today from bleeding from her right TM. Patient reports that she had a myringotomy done on September [address] Weber in his office due to history of vertigo. Patient reports that she then developed an infection within the ear and is currently taking clindamycin and using ofloxacin drops. Patient reports that today she coughed and suddenly felt blood coming from the right eardrum. She reports that she is not on blood thinners. She denies any severe headache or fever. She denies any neck pain or rigidity. Patient states that she has been taking the clindamycin and the past few days and has another 7-10 days to finish this. Patient states that she has no significant dizziness at this time. She does report hearing loss. - Related Data Home Medications Medication Instructions Recorded Confirmed Multivitamins, Thera [Multivitamin] 1 tab PO DAILY 05/03/16 05/07/19 ALPRAZolam [Xanax] 0.5 mg PO DAILY PRN 05/07/19 05/07/19 Calcium Polycarbophil [Fibercon] 625 mg PO DAILY 05/07/19 05/07/19 Levothyroxine Sodium [Synthroid] 50 mcg PO DAILY 05/07/19 05/07/19 Losartan [Cozaar] 50 mg PO DAILY 05/07/19 05/07/19 Lutein 20 mg PO DAILY 05/07/19 05/07/19 [place]-3 Fatty Acids/Fish Oil [Fish 1 cap PO BID 05/07/19 05/07/19 Oil 1,000 mg Softgel] Triamterene-Hctz 37.5-25Mg 1 cap PO DAILY 05/07/19 05/07/19 [Dyazide 37.5-25 Capsule] Verapamil HCl [Verapamil ER] 120 mg PO DAILY 05/07/19 05/07/19 Vit C/E/Zn/Coppr/Lutein/Zeaxan 1 cap PO BID 05/07/19 05/07/19 [Preservision Areds 2 Softgel] cycloSPORINE [Restasis] 1 drop BOTH EYES BID 05/07/19 05/07/19 Previous Rx's Medication Instructions Recorded Meclizine [Antivert] 25 mg PO TID PRN #15 tab 05/07/19 Ondansetron Odt [Zofran Odt] 4 mg PO Q8HR PRN #14 tab 05/07/19 Allergies Allergy/AdvReac Type Severity Reaction Status Date / Time Penicillins Allergy Rash/Hives Verified 10/05/19 11:16 caffeine AdvReac Nausea & Verified 10/05/19 11:16 Vomiting fentanyl AdvReac Nausea & Verified 10/05/19 11:16 Vomiting midazolam [From Versed] AdvReac Nausea & Verified 10/05/19 11:16 Vomiting Review of Systems ROS Statement: Those systems with pertinent positive or pertinent negative responses have been documented in the HPI. ROS Other: All systems not noted in ROS Statement are negative. Past Medical History Past Medical History: Hypertension, Thyroid Disorder Additional Past Medical History / Comment(s): pain left leg bulging disc and pinched nerve History of Any Multi-Drug Resistant Organisms: None Reported Past Surgical History: Cholecystectomy, Ear Surgery Past Anesthesia/Blood Transfusion Reactions: Motion Sickness, Postoperative Nausea & Vomiting (PONV) Past Psychological History: No Psychological Hx Reported Smoking Status: Former smoker Past Alcohol Use History: Occasional Past Drug Use History: None Reported - Past Family History Mother Family Medical History: Cancer Additional Family Medical History / Comment(s): lung Father Family Medical History: Cancer Additional Family Medical History / Comment(s): sinuses General Exam - General Exam Comments Initial Comments: 84 -year-old female. Alert and oriented. No significant distress. Limitations: no limitations General appearance: alert, in no apparent distress Head exam: Present: atraumatic, normocephalic, normal inspection Eye exam: Present: normal appearance, PERRL, EOMI. Absent: scleral icterus, conjunctival injection, periorbital swelling ENT exam: Present: normal exam, normal oropharynx, mucous membranes moist, other (Patient has dried blood from right TM. Patient has evidence of blue ear tube seems to be somewhat dislodged and laterally placed. There is dried blood covering this.) Neck exam: Present: normal inspection. Absent: tenderness, meningismus, lymphadenopathy Respiratory exam: Present: normal lung sounds bilaterally. Absent: respiratory distress, wheezes, rales, rhonchi, stridor Cardiovascular Exam: Present: regular rate, normal rhythm, normal heart sounds. Absent: systolic murmur, diastolic murmur, rubs, gallop, clicks GI/Abdominal exam: Present: soft, normal bowel sounds. Absent: distended, tenderness, guarding, rebound, rigid Extremities exam: Present: normal inspection, full ROM, normal capillary refill. Absent: tenderness, pedal edema, joint swelling, calf tenderness Back exam: Present: normal inspection Neurological exam: Present: alert, oriented X3, CN II-XII intact Psychiatric exam: Present: normal affect, normal mood Skin exam: Present: warm, dry, intact, normal color. Absent: rash Course Vital Signs 10/05/19 11:09 Temperature 97.8 F Pulse Rate 70 Respiratory 18 Rate Blood Pressure 154/85 O2 Sat by Pulse 96 Oximetry Medical Decision Making - Medical Decision Making 84-year-old female presents emergency department today with bleeding from her eardrum, hearing loss after coughing. Had a myringotomy on September 16. She was then recently told she has an ear infection and is currently on clindamycin and ofloxacin drops. Patient on physical exam has dried blood within the ear. No fever, no meningismal signs. Patient does report hearing loss and on exam it appears the patient's ear tube is slightly turned on ear canal and covered with dried blood. I discussed the Patient is a follow-up with ENT but to continue her clindamycin and ofloxacin drops. Patient is agreeable to plan. All questions answered. Disposition Clinical Impression: Otitis, Ear drum perforation Disposition: HOME SELF-CARE Condition: Stable Instructions (If sedation given, give patient instructions): Ruptured Eardrum (ED) Additional Instructions: Follow-up with ENT tomorrow morning. Continue clindamycin pills and ofloxacin drops. Patient show a getting any water within the ear canal. Return to the emergency department if any alarming signs or symptoms occur. Is patient prescribed a controlled substance at d/c from ED?: No Referrals: Celm Mercado MD [Primary Care Provider] - 1-2 days Patrick Scanlon DO [Doctor of Osteopathic Medicine] - 1-2 days Time of Disposition: 11:53
== END 2019-10-05 12:03 | disposition home or self-care (01) ==
LOC: EC 10:52
DX: H66.91 Otitis media, unspecified, right ear (principal); H72.91 Unspecified perforation of tympanic membrane, right ear; H91.91 Unspecified hearing loss, right ear; I10 Essential (primary) hypertension; E07.9 Disorder of thyroid, unspecified; Z79.890 Hormone replacement therapy; Z79.899 Other long term (current) drug therapy; Z88.0 Allergy status to penicillin; Z88.5 Allergy status to narcotic agent; Z88.6 Allergy status to analgesic agent; Z87.891 Personal history of nicotine dependence
CPT/HCPCS: 99283

== ENCOUNTER → 2019-12-11 | Outpatient (CLI) | payer MEDICARE, OTHER ==
--- NOTE | 2019-12-11 08:36 | CT ---
EXAMINATION TYPE: CT iac wo con DATE OF EXAM: 12/11/2019 COMPARISON: Prior CT brain 05/07/2019 HISTORY: dizziness, Rt sided cholesteatoma CT DLP: 150mGycm Automated exposure control for dose reduction was used. CT through the internal auditory canals using departmental protocol FINDINGS: The external auditory canals are patent bilaterally. Mastoid air cells show no evidence of abnormal opacification bilaterally. The middle ear ossicles are symmetric and unremarkable. There is some thickening along the tympanic membrane seen best on coronal image #36 on the right The scutum is preserved bilaterally. The cochlea and the semicircular canals are symmetric and unremarkable. Vestibular aqueduct and internal carotid canal appear unremarkable. Temporomandibular joints are shell ntained bilaterally. There is some minimal inflammatory change present within the maxillary antrum o n the left. IMPRESSION: There is thickening along the right tympanic membrane as described, minimal inflammatory change left maxillary sinus
== END | disposition home or self-care (01) ==
LOC: RADCTMAIN 06:54
PROVIDERS: ATTEND Otolaryngology
DX: H73.891 Other specified disorders of tympanic membrane, right ear (principal); J32.0 Chronic maxillary sinusitis
CPT/HCPCS: 70480

== ENCOUNTER → 2020-06-10 | Outpatient (CLI) | payer MEDICARE, OTHER ==
[2020-06-10 21:55] LABS: Gliadin AB IgA, Deaminated NEGATIVE (NEGATIVE)
[2020-06-10 21:56] LABS: Gliadin AB IgG, Deaminated NEGATIVE (NEGATIVE)
== END | disposition home or self-care (01) ==
LOC: LABWHC1 10:49
PROVIDERS: ATTEND Nurse Practitioner
DX: K52.9 Noninfective gastroenteritis and colitis, unspecified (principal)
CPT/HCPCS: 36415; 83516; 83630; 87045; 87046; 87328; 87329

== ENCOUNTER 2020-07-06 08:21 | Emergency (ER) | payer MEDICARE, OTHER ==
[2020-07-06 08:26] VITALS: RESP 18; TEMP 98.4
--- NOTE | 2020-07-06 08:40 | ED ---
General Adult HPI - General Chief complaint: Head Injury Stated complaint: Fall Time Seen by Provider: 07/06/20 08:25 Source: patient Mode of arrival: wheelchair Limitations: no limitations - History of Present Illness Initial comments: Patient is an 85-year-old female with past medical history of hypertension who presents to the emergency department with reported neck pain. Patient states she fell on approximately 7 steps yesterday at 4 PM in the afternoon. She hit her head. Denies losing consciousness. States that she has pain on the right side of her neck which radiates into her head. Denies headache or visual changes. No nausea or vomiting. Reports the pain is worse when she moves her head to the left or right. Denies any numbness, tingling or weakness in her upper extremities. No chest pain or shortness of breath. No abdominal pain. Denies any pelvic pain. No numbness, tingling or weakness in her lower extremity. Does admit to left hand pain with some bruising to her fourth digit which she sustained because the fall. Denies a single episode. Patient is not any blood thinners. No other alleviating, precipitating or modifying factors - Related Data Home Medications Medication Instructions Recorded Confirmed Levothyroxine Sodium [Synthroid] 50 mcg PO DAILY 05/07/19 07/06/20 Losartan [Cozaar] 50 mg PO DAILY 05/07/19 07/06/20 Verapamil HCl [Verapamil ER] 120 mg PO DAILY 05/07/19 07/06/20 Vit C/E/Zn/Coppr/Lutein/Zeaxan 1 cap PO BID 05/07/19 07/06/20 [Preservision Areds 2 Softgel] Azelastine/Fluticasone 1 spray EA NOSTRIL BID PRN 07/06/20 07/06/20 [Azelastin-Flutic 137-50Mcg Spr] Calcium/Magnesium/Zinc 1 tab PO DAILY 07/06/20 07/06/20 [Ambzwdh-Pacvufdra-Tvrj Tablet] Inulin/Cholecalciferol (D3) [Fiber 1 tab PO DAILY 07/06/20 07/06/20 Gummies-Vitamin D3] Ipratropium [place] 0.06%Nasal 1 spray EA NOSTRIL DAILY 07/06/20 07/06/20 [Atrovent Nasal 0.06%] Meclizine [Antivert] 12.5 - 25 mg PO TID PRN 07/06/20 07/06/20 Mometasone Furoate [[place] 1% Top 1 applic TOPICAL DAILY PRN 07/06/20 07/06/20 Soln] Super Collagen + Vitamin C + 1 tab PO DAILY 07/06/20 07/06/20 Biotin (Unknown Strength) Vitamin D3 120mcg 1 tab PO DAILY 07/06/20 07/06/20 fluocinolone acetonide oiL 1 drop BOTH EARS DAILY PRN 07/06/20 07/06/20 [Fluocinolone Acetonide Oil (Otic)] Previous Rx's Medication Instructions Recorded HYDROcodone/APAP 7.5-325MG [[place] 1 tab PO Q6HR PRN 3 Days #12 tab 07/06/20 7.5-325] Ibuprofen [Motrin] 600 mg PO Q8HR PRN #12 tab 07/06/20 Allergies Allergy/AdvReac Type Severity Reaction Status Date / Time Penicillins Allergy Rash/Hives Verified 07/06/20 09:27 alendronate sodium AdvReac Unknown Verified 07/06/20 09:33 [From Fosamax] caffeine AdvReac Nausea & Verified 07/06/20 09:27 Vomiting codeine AdvReac Unknown Verified 07/06/20 09:33 fentanyl AdvReac Nausea & Verified 07/06/20 09:27 Vomiting midazolam [From Versed] AdvReac Nausea & Verified 07/06/20 09:27 Vomiting risperidone AdvReac Unknown Verified 07/06/20 09:33 Review of Systems ROS Statement: Those systems with pertinent positive or pertinent negative responses have been documented in the HPI. ROS Other: All systems not noted in ROS Statement are negative. Past Medical History Past Medical History: Hypertension, Thyroid Disorder Additional Past Medical History / Comment(s): pain left leg bulging disc and pinched nerve History of Any Multi-Drug Resistant Organisms: None Reported Past Surgical History: Cholecystectomy, Ear Surgery Past Anesthesia/Blood Transfusion Reactions: Motion Sickness, Postoperative Nausea & Vomiting (PONV) Past Psychological History: No Psychological Hx Reported Smoking Status: Never smoker Past Alcohol Use History: Occasional Past Drug Use History: None Reported - Past Family History Mother Family Medical History: Cancer Additional Family Medical History / Comment(s): lung Father Family Medical History: Cancer Additional Family Medical History / Comment(s): sinuses General Exam Limitations: no limitations Course Vital Signs 07/06/20 07/06/20 07/06/20 08:24 09:26 10:26 Temperature 98.4 F Pulse Rate 74 64 Respiratory 18 18 18 Rate Blood Pressure 169/73 160/84 O2 Sat by Pulse 98 99 Oximetry 07/06/20 07/06/20 07/06/20 11:00 12:00 12:34 Temperature 98.4 F Pulse Rate 64 64 64 Respiratory 18 18 18 Rate Blood Pressure 148/74 151/73 151/73 O2 Sat by Pulse 99 99 99 Oximetry - Reevaluation(s) Reevaluation #1: 07/06/20 10:48 Re-evaluated patient - no improvement in pain. Reevaluation #2: 07/06/20 11:43 patient re-evaluated. Pain improved. Can move around. Spoke with Dr. Santos who agrees to see pt in office. Medical Decision Making - Medical Decision Making Upon arrival patient was placed into room 17. A thorough history and physical exam was performed. Patient was given a muscle relaxer. Recommended CT of brain and cervical spine. CT of the brain demonstrates no acute fracture dislocation. No acute intravenous hemorrhage or midline shift. Patient does have some posterior disc herniation at C5-C6 and C6-C7 which effaces the anterior thecal sac. Patient has no numbness, tingling or weakness in her upper extremities. C-collar is removed and the patient continues to have persistent pain. She was given a dose of Dilaudid. Patient was reevaluated and states she is able to move her head around at this time. I called and discussed the case with Dr. Santos who will see the patient in office. Recommended a soft collar for which she is given a prescription. Patient was also given prescriptions for Motrin and [place] for which she is to alternate taking. Call to make an appointment with Dr. Truong. Return to the emergency room for any new or worsening symptoms. Patient was discharged home in stable condition Disposition Clinical Impression: Head trauma, Neck pain, Fall down stairs Disposition: HOME SELF-CARE Condition: Stable Instructions (If sedation given, give patient instructions): Acute Neck Pain (ED) Additional Instructions: Please call Dr. Zavala's office to make an appointment for the next week. Wear the soft collar. Pick it up at a medical supply store. Alternate taking the [place] and Motrin. Use a heating pad. Return to the ED for any new or worsening symptoms. Prescriptions: Ibuprofen [Motrin] 600 mg PO Q8HR PRN #12 tab PRN Reason: Pain HYDROcodone/APAP 7.5-325MG [[place] 7.5-325] 1 tab PO Q6HR PRN 3 Days #12 tab PRN Reason: Pain Is patient prescribed a controlled substance at d/c from ED?: Yes When asked, does pt state using other controlled substances?: No If prescribed controlled substance>3 days was MAPS reviewed?: Prescribed <3 Days If opioid is for acute pain is fill amount 7 days or less?: Yes If Rx opioid, was Start Talking consent form obtained?: Yes Referrals: Clem Mercado MD [Primary Care Provider] - 1-2 days Reji Santos DO [Doctor of Osteopathic Medicine] - 1-2 days Time of Disposition: 12:03
[2020-07-06] MEDS ORDERED: CYCLOBENZAPRINE 10 MG TAB PO STA (08:41)
--- NOTE | 2020-07-06 09:36 | CT ---
EXAMINATION TYPE: CT brain cspine wo con DATE OF EXAM: 07/06/2020 COMPARISON: CT brain May 07, 2020 HISTORY: Fall downstairs, head and neck pain. CT DLP: 1347.3 mGycm. Automated Exposure Control for Dose Reduction was Utilized. TECHNIQUE: CT scan of the head and cervical spine are performed without contrast. FINDINGS: There is no acute intracranial hemorrhage or midline shift identified. Diffuse ventricula r and sulcal prominence. [place]-white matter differentiation fairly well-maintained. The calvarium is intact. Scleral calcification bilateral globes. Paranasal sinuses are grossly clear. Old fracture def ormity nasal bridge suspected. Cervical spine is visualized in its entirety from C1 through upper thoracic levels and demonstrates g rade 1 retrolisthesis C4 on C5 and C5 on C6 without evidence of acute fracture or dislocation. Preve rtebral soft tissue appears within normal limits. The C1-C2 articulation is within normal limits on the coronal images. Vertebral body heights are maintained. Moderate to severe disc space narrowing w ith subchondral cystic change and moderate spurring noted C4-C5 through C6-C7 levels. Posterior disc herniation C5-C6 and C6-C7 level effaces anterior thecal sac. Axial images show uncovertebral facet d egenerative changes bilaterally contributing to multilevel bilateral neural foraminal narrowing. Hete rogeneous small size thyroid. Lung apices show no pneumothorax, there is mild emphysematous change an d moderate biapical pleural/parenchymal scarring. IMPRESSION: 1. There is no acute fracture or dislocation evident in the cervical spine. 2. No acute intracranial hemorrhage or midline shift is seen.
--- NOTE | 2020-07-06 10:18 | XR ---
Left hand HISTORY: Trauma and pain 3 views of left hand Bone mineralization, joint spaces and alignment are maintained. There is hypertrophic change at the m etacarpophalangeal joint of the first digit, carpometacarpal joint of the first digit. Possible geode present at the medial aspect of the distal radius, possibly within the carpal bones. Soft tissue swe lling noted to the second digit. IMPRESSION: No fracture or dislocation.
[2020-07-06 10:40] VITALS: PULSE 64
[2020-07-06] MEDS ORDERED: HYDROmorphone 1 MG/ML 1 ML SYRINGE IM STA (10:47)
[2020-07-06 12:37] VITALS: BP 151/73
== END 2020-07-06 12:40 | disposition home or self-care (01) ==
LOC: EC 08:21
DX: S09.90XA Unspecified injury of head, initial encounter (principal); M50.223 Other cervical disc displacement at C6-C7 level; I10 Essential (primary) hypertension; E07.9 Disorder of thyroid, unspecified; Z79.890 Hormone replacement therapy; Z79.899 Other long term (current) drug therapy; Z79.51 Long term (current) use of inhaled steroids; Z88.0 Allergy status to penicillin; Z88.8 Allergy status to other drugs, medicaments and biological substances; Z91.018 Allergy to other foods; Z88.5 Allergy status to narcotic agent; Z88.6 Allergy status to analgesic agent; W09.8XXA Fall on or from other playground equipment, initial encounter; Y92.009 Unspecified place in unspecified non-institutional (private) residence as the place of occurrence of the external cause
CPT/HCPCS: 73130; 72125; 70450; 99284; 96372; J1170

== ENCOUNTER 2020-09-01 10:45 | Day surgery (SDC) | payer MEDICARE, OTHER ==
[2020-08-31 09:36] VITALS: BMI 22.8
[~2020-09-01 10:45] MED LIST changes: -LACTATED RINGERS 1,000 ML IV ONE; +LACTATED RINGERS 1,000 ML IV SCH; +LIDOCAINE 1% (10MG/ML) FOR IV START INTRADERMA PRN
[2020-09-01 11:11] VITALS: TEMP 98
[2020-09-01] MEDS ORDERED: PROPOFOL 10 MG/ML 20 ML VIAL IV ONE (11:42)
[2020-09-01] MEDS ORDERED: LIDOCAINE 1% INJ 10MG/ML (20 ML MDV) ONE (11:42)
--- NOTE | 2020-09-01 12:02 | P.PCN ---
Date of Procedure: 09/01/20 Procedure(s) Performed: BRIEF HISTORY: Patient is a 85-year-old pleasant white female scheduled for an elective colonoscopy as a part of evaluation of chronic diarrhea for the last several months duration. She has bowel movements anywhere from 4-6 a day which are loose to watery in consistency. No blood or mucus in the stool. PROCEDURE PERFORMED: Colonoscopy with random biopsies. PREOPERATIVE DIAGNOSIS: Chronic diarrhea of 9 months duration. IV sedation per Anesthesia. PROCEDURE: After informed consent was obtained, the patient, was brought into the endoscopy unit. IV sedation was administered by Anesthesia under continuous monitoring. Digital rectal examination was normal. Initially the Olympus CF-160 flexible video colonoscope was then inserted in the rectum, gradually advanced into the cecum without any difficulty. Careful examination was performed as the scope was gradually being withdrawn. Ileocecal valve and the appendiceal orifice were visualized and appeared normal. Prep was excellent. Mucosa of the cecum, ascending colon, transverse colon, descending colon, sigmoid colon, and rectum appeared normal. Random biopsies were done from ascending and descending colon to rule out microscopic/collagenous colitis. Scattered left-sided diverticulosis seen. Retroflexion was performed in the rectum and grade 2 internal hemorrhoids were seen. The patient tolerated the procedure well. IMPRESSION: Normal-appearing colon from rectum to cecum with no evidence of colitis or co lorectal neoplasia Scattered sigmoid diverticulosis Grade 2 internal hemorrhoids. RECOMMENDATIONS: Findings of this examination were discussed with the patient as well as her family. She was advised to follow with the biopsy results. She'll be seen in office in one to 2 weeks.
[2020-09-01 12:05] VITALS: RESP 16
[2020-09-01 12:21] VITALS: BP 160/83; PULSE 65
== END 2020-09-01 12:55 | disposition home or self-care (01) ==
LOC: ORWHC2ENDO 10:45
PROVIDERS: ATTEND Internal Medicine Gastroenterology
DX: K57.30 Diverticulosis of large intestine without perforation or abscess without bleeding (principal); K64.1 Second degree hemorrhoids; I10 Essential (primary) hypertension; E07.9 Disorder of thyroid, unspecified; Z79.890 Hormone replacement therapy; Z79.899 Other long term (current) drug therapy; Z88.0 Allergy status to penicillin; Z88.8 Allergy status to other drugs, medicaments and biological substances; Z88.5 Allergy status to narcotic agent
CPT/HCPCS: 88305; 45380; J2001; J2704

== ENCOUNTER → 2020-10-20 | Outpatient (CLI) | payer MEDICARE, OTHER ==
[2020-10-20 12:23] LABS: Albumin 4.5 g/dL (3.5-5.0); Phosphorus 4.2 mg/dL (2.5-4.5); Potassium 4.6 mmol/L (3.5-5.1)
--- NOTE | 2020-10-20 14:05 | CT ---
EXAMINATION TYPE: CT abdomen pelvis w con DATE OF EXAM: 10/20/2020 COMPARISON: 10/21/2013 HISTORY: Periumbilical pain CT DLP: 836 mGycm CONTRAST: CT scan of the abdomen and pelvis is performed with Oral Contrast and with IV Contrast, patient injec hero with 80 mL of Isovue 300. FINDINGS: LUNG BASES-: No visible nodule. No infiltrate. LIVER/GB: No calcified gallstones. No space occupying hepatic lesion. Mild intrahepatic biliary du ctal prominence. PANCREAS: No inflammation. No distinct mass. SPLEEN: No splenic enlargement. No lesion seen. ADRENALS: No nodule. No thickening. KIDNEYS/BLADDER: No hydronephrosis. 5 mm nonobstructing calculus lower pole left kidney. 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 No distinct renal mass. Urinary bladder grossly unremark able. BOWEL: Normal appendix. Normal bowel caliber. No inflammation. Diverticula noted without diverticulitis. GENITAL ORGANS: No gross abnormality. LYMPH NODES: No greater than 1cm abdominal or pelvic lymph nodes are appreciated. AORTA: No significant abnormality. OSSEOUS STRUCTURES: No significant abnormality is seen. OTHER: No significant additional abnormality is seen. IMPRESSION: 1. Nonobstructing calculus left kidney. 2. Normal-appearing appendix.
== END | disposition home or self-care (01) ==
LOC: RADCTMAIN 11:22
PROVIDERS: ATTEND Internal Medicine Gastroenterology
DX: N20.0 Calculus of kidney (principal); R19.7 Diarrhea, unspecified; R10.33 Periumbilical pain
CPT/HCPCS: 80069; 74177; 36415; Q9967 ×2; 87045; 87046; 87324; 87328; 87329; 87338

== ENCOUNTER → 2020-10-21 | Outpatient (CLI) | payer MEDICARE, OTHER ==
[2020-10-22 05:37] LABS: African American GFR (CKD) 47.7 (60.0-200.0); Albumin 4.5 g/dL (3.80-4.90); Anion Gap 6.7 mmol/L (4.00-12.00); BUN/Creat Ratio 17.5 Ratio (12.00-20.00); Calcium 10.1 mg/dL (8.7-10.3); Carbon Dioxide 29.3 mmol/L (21.6-31.8); Non-African American GFR(CKD) 41.2 (60.0-200.0); Phosphorus 3.8 mg/dL (2.4-5.1); Potassium 4.5 mmol/L (3.5-5.5)
== END | disposition home or self-care (01) ==
LOC: LABWHC1 10:12
PROVIDERS: ATTEND Nurse Practitioner
DX: R19.7 Diarrhea, unspecified (principal); R10.33 Periumbilical pain
CPT/HCPCS: 36415; 80069

== ENCOUNTER → 2021-12-08 | Outpatient (CLI) | payer MEDICARE, OTHER ==
--- NOTE | 2021-12-08 22:55 | MR ---
EXAMINATION TYPE: MR cervical spine wo con DATE OF EXAM: 12/08/2021 COMPARISON: None HISTORY: Neck and bilateral shoulder pain. Multiplanar multi echo imaging of the cervical spine without contrast. There is some degenerative disc space narrowing from C3 to C7. Cervical spinal cord has normal signal pattern. No edema. Brainstem is intact. Facet joints are intact. There is minimal posterior disc bul ging and spurring at C5-6. The canal is narrowed to 6.5 mm at C5-6 which is the narrowest point. Ther e is no evidence of cervical paraspinal mass. IMPRESSION: Multilevel spondylotic changes. Mild relative spinal stenosis at C5-6. No fracture..
--- NOTE | 2021-12-09 05:26 | MR ---
EXAMINATION TYPE: MR shoulder LT wo con DATE OF EXAM: 12/08/2021 COMPARISON: None HISTORY: Neck and left shoulder pain. Multiplanar multi echo imaging of the left shoulder without contrast. There is moderate-sized shoulder joint effusion. The biceps tendon is intact. Subscapularis tendon is intact. There is moderate spurring at the AC joint with subacromial impingement on the supraspinatus tendon and muscle. There are small patches of increased signal in the supraspinatus tendon. No retra ction. No evidence of a full-thickness tear. There are degenerative cysts in the glenoid. There is some spurring of the glenoid labrum. The infras pinatus tendon is intact. No fracture seen. There is narrowing of the glenohumeral joint space. 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 No evidence of full-thickness rotator cuff tear. Shoulder j oint effusion consistent with some synovitis. There is partial tear of the supraspinatus tendon.
== END | disposition home or self-care (01) ==
LOC: RADMRIMAIN 15:39
PROVIDERS: ATTEND Orthopaedic Surgery
DX: M47.812 Spondylosis without myelopathy or radiculopathy, cervical region (principal); M48.02 Spinal stenosis, cervical region; M19.012 Primary osteoarthritis, left shoulder; M75.112 Incomplete rotator cuff tear or rupture of left shoulder, not specified as traumatic; M50.222 Other cervical disc displacement at C5-C6 level
CPT/HCPCS: 72141

== ENCOUNTER → 2022-03-27 | Outpatient (CLI) | payer MEDICARE, OTHER ==
--- NOTE | 2022-03-27 11:49 | XR ---
EXAMINATION TYPE: XR chest 2V DATE OF EXAM: 03/27/2022 11:30 AM COMPARISON: Chest radiographs from 11/03/2021 TECHNIQUE: XR chest 2V Frontal and lateral views of the chest. CLINICAL INDICATION:Female, 86 years old with history of R06.02 SOB; FINDINGS: Lungs/Pleura: There is no evidence of pleural effusion, focal consolidation, or pneumothorax. Pulmonary vascularity: Unremarkable. Heart/mediastinum: Cardiomediastinal silhouette is unremarkable. Musculoskeletal: Degenerative changes of the shoulder joints. IMPRESSION: No acute cardiopulmonary disease/process.
== END | disposition home or self-care (01) ==
LOC: RADXRMAIN 11:14
PROVIDERS: ATTEND Internal Medicine
DX: R06.02 Shortness of breath (principal)
CPT/HCPCS: 71046

== ENCOUNTER 2023-04-07 14:43 | Emergency (ER) | payer MEDICARE, OTHER ==
--- NOTE | 2023-04-07 15:50 | ED ---
General Adult HPI - General Source: patient, RN notes reviewed Mode of arrival: ambulatory Limitations: no limitations <Shellie Becker - Last Filed: 04/07/23 15:46> <Abram Garduno - Last Filed: 04/07/23 21:07> - General Chief complaint: Abdominal Pain Stated complaint: loose bowl movments can't sit ibs Time Seen by Provider: 04/07/23 15:47 - History of Present Illness Initial comments: 87-year-old female past medical history significant for IBS presented to the ED with a chief complaint of rectal pain. States today, started to experience rectal pain. States that this is worse with bowel movements. States that the area around her rectum there is a "bump". Patient also notes that she started to experience diarrhea today which is worse than her usual with history of IBS. No blood. Patient also notes that she has had pain with urination for "quite a while". Denies chest pain or shortness of breath. Denies fever. No other complaints. (Abram Garduno) - Related Data Home Medications Medication Instructions Recorded Confirmed Levothyroxine Sodium [Synthroid] 50 mcg PO DAILY 05/07/19 11/03/21 Losartan [Cozaar] 50 mg PO DAILY 05/07/19 11/03/21 Vit C/E/Zn/Coppr/Lutein/Zeaxan 1 cap PO BID 05/07/19 11/03/21 [Preservision Areds 2 Softgel] Mometasone Furoate [Elocon 0.1% 1 applic BOTH EARS DAILY PRN 07/06/20 11/03/21 Top Soln] fluocinolone acetonide oiL 1 drop BOTH EARS DAILY PRN 07/06/20 11/03/21 [fluocinolone acetonide oiL 0.01% (Otic)] Cholecalciferol (Vitamin D3) 125 mcg PO DAILY 08/31/20 11/03/21 [Vitamin D3 (5000 Iu)] Tear Support 3 drop BOTH EYES DAILY 08/31/20 11/03/21 ALPRAZolam [Xanax] 0.5 mg PO TID PRN 11/03/21 11/03/21 Biotin 5 mg PO DAILY 11/03/21 11/03/21 Fiber W/Vitamin B 2 tab PO DAILY 11/03/21 11/03/21 Fish Oil/Dha/Epa [Fish Oil 1,200 1 cap PO DAILY 11/03/21 11/03/21 mg Fish Oil] Ipratropium [place] 0.06%Nasal 2 spr EA NOSTRIL BID PRN 11/03/21 11/03/21 [Atrovent Nasal 0.06%] Lactobacillus Rhamnosus GG 1 cap PO DAILY 11/03/21 11/03/21 [Culturelle] Loperamide HCl [Imodium A-D] 2 mg PO DAILY 11/03/21 11/03/21 Meclizine [Antivert] 12.5 - 25 mg PO TID 11/03/21 11/03/21 Multivitamins, Thera [Multivitamin 1 tab PO DAILY 11/03/21 11/03/21 (formulary)] Stuart-3 Fatty Acids [Stuart-3] 1,000 mg PO DAILY 11/03/21 11/03/21 Triamterene-Hctz 37.5-25Mg 1 tab PO DAILY 11/03/21 11/03/21 [Maxzide 37.5-25] Verapamil HCl [Verapamil Sr] 120 mg PO DAILY 11/03/21 11/03/21 Vitamin B Complex 1 cap PO DAILY 11/03/21 11/03/21 cycloSPORINE [Restasis] 1 drop BOTH EYES BID 11/03/21 11/03/21 predniSONE [Deltasone] See Taper PO DAILY 11/03/21 11/03/21 Previous Rx's Medication Instructions Recorded Phenazopyridine [Pyridium] 100 mg PO TID PRN #9 tablet 04/07/23 Sulfamethox-Tmp 800-160Mg [Bactrim 1 tab PO Q12HR 3 Days #6 tab 04/07/23 DS 800-160 mg] Allergies Allergy/AdvReac Type Severity Reaction Status Date / Time Penicillins Allergy Rash/Hives Verified 04/07/23 15:20 alendronate sodium AdvReac Unknown Verified 04/07/23 15:20 [From Fosamax] caffeine AdvReac Nausea & Verified 04/07/23 15:20 Vomiting codeine AdvReac Unknown Verified 04/07/23 15:20 fentanyl AdvReac Nausea & Verified 04/07/23 15:20 Vomiting midazolam [From Versed] AdvReac Nausea & Verified 04/07/23 15:20 Vomiting risperidone AdvReac Unknown Verified 04/07/23 15:20 Review of Systems ROS Other: All systems not noted in ROS Statement are negative. <SrideviritaShellie sena - Last Filed: 04/07/23 15:46> ROS Other: All systems not noted in ROS Statement are negative. <Abram Garduno - Last Filed: 04/07/23 21:07> ROS Statement: Those systems with pertinent positive or pertinent negative responses have been documented in the HPI. 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,IBS History of Any Multi-Drug Resistant Organisms: None Reported Past Surgical History: Cholecystectomy, Ear Surgery Additional Past Surgical History / Comment(s): james eyes, glaucoma procedures Past Anesthesia/Blood Transfusion Reactions: Motion Sickness, Postoperative Nausea & Vomiting (PONV) Past Psychological History: No Psychological Hx Reported Smoking Status: Former smoker Past Alcohol Use History: None Reported Past Drug Use History: None Reported - Past Family History Mother Family Medical History: Cancer Additional Family Medical History / Comment(s): lung Father Family Medical History: Cancer Additional Family Medical History / Comment(s): sinuses <SrideviritaShellie sena - Last Filed: 04/07/23 15:46> General Exam Limitations: no limitations <SrdieviritaShellie sena - Last Filed: 04/07/23 15:46> Limitations: no limitations General appearance: alert, in no apparent distress Neck exam: Present: normal inspection Respiratory exam: Present: normal lung sounds bilaterally Cardiovascular Exam: Present: regular rate, normal rhythm GI/Abdominal exam: Present: soft (Tenderness to palpation in the left lower quadrant and suprapubic region. No rebound guarding or rigidity.), normal bowel sounds Rectal exam: Present: other (Nonthrombosed external hemorrhoid. Rectal exam shows no gross blood.) Back exam: Present: normal inspection Neurological exam: Present: alert, oriented X3 Skin exam: Present: warm, dry <Abram Garduno - Last Filed: 04/07/23 21:07> Course Vital Signs 04/07/23 04/07/23 15:17 20:12 Temperature 98.4 F Pulse Rate 88 64 Respiratory 20 16 Rate Blood Pressure 145/84 191/71 O2 Sat by Pulse 96 98 Oximetry Medical Decision Making - Lab Data Result diagrams: 04/07/23 16:25 04/07/23 16:25 <Abram Garduno - Last Filed: 04/07/23 21:07> - Medical Decision Making Was pt. sent in by a medical professional or institution (, CHAD, OUTBOUND SALES EXECUTIVE, urgent care, hospital, or snf...) When possible be specific @ -No Did you speak to anyone other than the patient for history (EMS, parent, family, police, friend...)? What history was obtained from this source @ -No Did you review nursing and triage notes (agree or disagree)? Why? @ -I reviewed and agree with nursing and triage notes Were old charts reviewed (outside hosp., previous admission, EMS record, old EKG, old radiological studies, urgent care reports/EKG's, snf records)? Report findings @ -No old charts were reviewed Differential Diagnosis (chest pain, altered mental status, abdominal pain women, abdominal pain men, vaginal bleeding, weakness, fever, dyspnea, syncope, headache, dizziness, GI bleed, back pain, seizure, CVA, palpatations, mental health, musculoskeletal)? @ -Differential Abdominal Pain Women: Appendicitis, Cholecystitis, diverticulosis, ischemic bowel, pancreatitis, hepatitis, UTI, gastroenteritis, AAA, incarcerated hernia, bowel obstruction, constipation, inflammatory bowel, hepatitis, peptic ulcer disease, splenic infarction, perforated viscus, vulvitis, ovarian torsion, PID, kidney stone, placenta abruption, this is not meant to be an all-inclusive list EKG interpreted by me (3pts min.). @ -None X-rays interpreted by me (1pt min.). @ -None done CT interpreted by me (1pt min.). @ -CT abdomen and pelvis interpreted by me shows no acute findings. U/S interpreted by me (1pt. min.). @ -None done What testing was considered but not performed or refused? (CT, X-rays, U/S, labs)? Why? @ -None What meds were considered but not given or refused? Why? @ -None Did you discuss the management of the patient with other professionals (professionals i.e. , CHAD, OUTBOUND SALES EXECUTIVE, lab, RT, psych nurse, social media sr strategy manager, pantograph operator, teacher, unclaimed property officer, pillowcase maker)? Give summary @ -No Was smoking cessation discussed for >3mins.? @ -No Was critical care preformed (if so, how long)? @ -No Were there social determinants of health that impacted care today? How? (Homeles sness, low income, unemployed, alcoholism, drug addiction, transportation, low edu. Level, literacy, decrease access to med. care, [facility] [facility], rehab)? @ -No Was there de-escalation of care discussed even if they declined (Discuss DNR or withdrawal of care, Hospice)? DNR status @ -No What co-morbidities impacted this encounter? (DM, HTN, Smoking, COPD, CAD, Cancer, CVA, ARF, Chemo, Hep., AIDS, mental health diagnosis, sleep apnea, morbid obesity)? @ -None Was patient admitted / discharged? Hospital course, mention meds given and route, prescriptions, significant lab abnormalities, going to OR and other pertinent info. @ -Discharge A 87-year-old female presenting to the ED with 1 day history of rectal pain and mass with associated diarrhea and complaints of dysuria for "quite a while". Laboratory studies show no elevation of white blood cell count. Patient does have some kidney injury with BUN 25, creatinine of 1.08. Urine is suggestive of UTI with bacteria, 34 blood cells, and positive leukocyte esterase. CT abdomen and pelvis showed no acute findings. Urine culture obtained. Patient prescribed prescription for Keflex. Discussed iset-cfz-lfdulan products for her ride. Advised increasing fiber and hydration. Discharged home in stable condition. Discussed return precautions with patient who verbalized route. Undiagnosed new problem with uncertain prognosis? @ -No Drug Therapy requiring intensive monitoring for toxicity (Heparin, Nitro, Insulin, Cardizem)? @ -No Were any procedures done? @ -No Diagnosis/symptom? @ -Nonthrombosed external hemorrhoid, urinary tract infection Acute, or Chronic, or Acute on Chronic? @ -Acute Uncomplicated (without systemic symptoms) or Complicated (systemic symptoms)? @ -Uncomplicated Side effects of treatment? @ -No Exacerbation, Progression, or Severe Exacerbation? @ -No Poses a threat to life or bodily function? How? (Chest pain, [place], [place], pneumonia, PE, COPD, DKA, ARF, appy, cholecystitis, CVA, Diverticulitis, Homicidal, Suicidal, threat to staff... and all critical care pts) @ -No (Abram Garduno) - Lab Data Lab Results 04/07/23 04/07/23 04/07/23 Range/Units 16:25 16:25 16:25 WBC 9.1 (3.8-10.6) k/uL RBC 4.35 (3.80-5.40) m/uL Hgb 13.6 (11.4-16.0) gm/dL Hct 41.4 (34.0-46.0) % MCV 95.2 (80.0-100.0) fL MCH 31.2 (25.0-35.0) pg MCHC 32.8 (31.0-37.0) g/dL RDW 13.1 (11.5-15.5) % Plt Count 173 (150-450) k/uL MPV 8.9 Neutrophils % 78 % Lymphocytes % 9 % Monocytes % 8 % Eosinophils % 1 % Basophils % 0 % Neutrophils # 7.1 (1.3-7.7) k/uL Lymphocytes # 0.8 L (1.0-4.8) k/uL Monocytes # 0.7 (0-1.0) k/uL Eosinophils # 0.1 (0-0.7) k/uL Basophils # 0.0 (0-0.2) k/uL Sodium 135 L (137-145) mmol/L Potassium 4.4 (3.5-5.1) mmol/L Chloride 107 (98-107) mmol/L Carbon Dioxide 21 L (22-30) mmol/L Anion Gap 7 mmol/L BUN 25 H (7-17) mg/dL Creatinine 1.08 H (0.52-1.04) mg/dL Est GFR (CKD-EPI)AfAm 53 (>60 ml/min/1.73 sqM) Est GFR (CKD-EPI)NonAf 46 (>60 ml/min/1.73 sqM) Glucose 83 (74-99) mg/dL Plasma Lactic Acid Chano 1.0 (0.7-2.0) mmol/L Calcium 9.5 (8.4-10.2) mg/dL Total Bilirubin 0.6 (0.2-1.3) mg/dL AST 38 H (14-36) U/L ALT 21 (4-34) U/L Alkaline Phosphatase 76 (38-126) U/L Total Protein 6.9 (6.3-8.2) g/dL Albumin 4.1 (3.5-5.0) g/dL Amylase 131 H (30-110) U/L Lipase 234 (23-300) U/L Urine Color Urine Appearance (Clear) Urine pH (5.0-8.0) Ur Specific [place] (1.001-1.035) Urine Protein (Negative) Urine Glucose (UA) (Negative) Urine Ketones (Negative) Urine Blood (Negative) Urine Nitrite (Negative) Urine Bilirubin (Negative) Urine Urobilinogen (<2.0) mg/dL Ur Leukocyte Esterase (Negative) Urine RBC (0-5) /hpf Urine WBC (0-5) /hpf Ur Squamous Epith Cells (0-4) /hpf Urine Bacteria (None) /hpf Stool Occult Blood (Negative) 04/07/23 04/07/23 Range/Units 16:47 16:47 WBC (3.8-10.6) k/uL RBC (3.80-5.40) m/uL Hgb (11.4-16.0) gm/dL Hct (34.0-46.0) % MCV (80.0-100.0) fL MCH (25.0-35.0) pg MCHC (31.0-37.0) g/dL RDW (11.5-15.5) % Plt Count (150-450) k/uL MPV Neutrophils % % Lymphocytes % % Monocytes % % Eosinophils % % Basophils % % Neutrophils # (1.3-7.7) k/uL Lymphocytes # (1.0-4.8) k/uL Monocytes # (0-1.0) k/uL Eosinophils # (0-0.7) k/uL Basophils # (0-0.2) k/uL Sodium (137-145) mmol/L Potassium (3.5-5.1) mmol/L Chloride (98-107) mmol/L Carbon Dioxide (22-30) mmol/L Anion Gap mmol/L BUN (7-17) mg/dL Creatinine (0.52-1.04) mg/dL Est GFR (CKD-EPI)AfAm (>60 ml/min/1.73 sqM) Est GFR (CKD-EPI)NonAf (>60 ml/min/1.73 sqM) Glucose (74-99) mg/dL Plasma Lactic Acid Chano (0.7-2.0) mmol/L Calcium (8.4-10.2) mg/dL Total Bilirubin (0.2-1.3) mg/dL AST (14-36) U/L ALT (4-34) U/L Alkaline Phosphatase (38-126) U/L Total Protein (6.3-8.2) g/dL Albumin (3.5-5.0) g/dL Amylase (30-110) U/L Lipase (23-300) U/L Urine Color Colorless Urine Appearance Cloudy H (Clear) Urine pH 7.0 (5.0-8.0) Ur Specific [place] 1.008 (1.001-1.035) Urine Protein Negative (Negative) Urine Glucose (UA) Negative (Negative) Urine Ketones Negative (Negative) Urine Blood Trace H (Negative) Urine Nitrite Negative (Negative) Urine Bilirubin Negative (Negative) Urine Urobilinogen <2.0 (<2.0) mg/dL Ur Leukocyte Esterase Large H (Negative) Urine RBC 3 (0-5) /hpf Urine WBC 34 H (0-5) /hpf Ur Squamous Epith Cells 1 (0-4) /hpf Urine Bacteria Rare H (None) /hpf Stool Occult Blood Negative (Negative) Disposition <Shellie Becker - Last Filed: 04/07/23 15:46> Is patient prescribed a controlled substance at d/c from ED?: No Time of Disposition: 21:07 <Abram Garduno - Last Filed: 04/07/23 21:07> Clinical Impression: Urinary tract infection, Hemorrhoid Disposition: HOME SELF-CARE Condition: Good Instructions (If sedation given, give patient instructions): Hemorrhoids (ED), Urinary Tract Infection in Women (ED) Additional Instructions: Please return to the Emergency Department if symptoms worsen or any other conc erns. Prescriptions: Sulfamethox-Tmp 800-160Mg [Bactrim DS 800-160 mg] 1 tab PO Q12HR 3 Days #6 tab Phenazopyridine [Pyridium] 100 mg PO TID PRN #9 tablet PRN Reason: Pain Control Referrals: Clem Mercado MD [Primary Care Provider] - 1-2 days
[2023-04-07 16:41] LABS: Basophils % (A) 0 %; Eosinophils # (A) 0.1 k/uL (0-0.7); Eosinophils % (A) 1 %; HCT 41.4 % (34.0-46.0); HGB 13.6 gm/dL (11.4-16.0); Lymphocytes # (A) 0.8 k/uL (1.0-4.8); Lymphocytes % (A) 9 %; MCH 31.2 pg (25.0-35.0); MCHC 32.8 g/dL (31.0-37.0); MCV 95.2 fL (80.0-100.0); Mean Platelet Volume 8.9; Monocytes # (A) 0.7 k/uL (0-1.0); Monocytes % (A) 8 %; Neutrophils # (A) 7.1 k/uL (1.3-7.7); Neutrophils % (A) 78 %; Platelet Count 173 k/uL (150-450); RBC 4.35 m/uL (3.80-5.40); RDW 13.1 % (11.5-15.5); WBC 9.1 k/uL (3.8-10.6)
[2023-04-07 17:00] LABS: ALT 21 U/L (4-34); AST 38 U/L (14-36); African American GFR (CKD) 53 (>60 ml/min/1.73 sqM); Albumin 4.1 g/dL (3.5-5.0); Alkaline Phosphatase 76 U/L (38-126); Amylase 131 U/L (30-110); Anion Gap 7 mmol/L; Blood Urea Nitrogen 25 mg/dL (7-17); Calcium 9.5 mg/dL (8.4-10.2); Carbon Dioxide 21 mmol/L (22-30); Chloride 107 mmol/L (98-107); Glucose 83 mg/dL (74-99); Lipase 234 U/L (23-300); Non-African American GFR(CKD) 46 (>60 ml/min/1.73 sqM); Potassium 4.4 mmol/L (3.5-5.1); Sodium 135 mmol/L (137-145); Total Bilirubin 0.6 mg/dL (0.2-1.3); Total Protein 6.9 g/dL (6.3-8.2)
[2023-04-07 17:35] LABS: Appearance,Urine Cloudy (Clear); Bacteria,Urine Rare /hpf; Bilirubin,Urine Negative (Negative); Blood,Urine Trace (Negative); Color,Urine Colorless; Glucose,Urine (UA) Negative (Negative); Ketones,Urine Negative (Negative); Leukocyte Esterase,Urine Large (Negative); Nitrite,Urine Negative (Negative); Protein,Urine Negative (Negative); RBC,Urine 3 /hpf (0-5); Specific Gravity,Urine 1.008 (1.001-1.035); Squamous Epithelial Cell,Urine 1 /hpf (0-4); Urobilinogen,Urine <2.0 mg/dL (<2.0); WBC,Urine 34 /hpf (0-5)
[2023-04-07] MEDS ORDERED: SODIUM CHLORIDE 0.9% 1,000 ML IV STA (18:01)
[2023-04-07] MEDS ORDERED: KETOROLAC 15 MG/ML 1 ML VIAL IVP STA (19:43)
--- NOTE | 2023-04-07 20:21 | CT ---
EXAMINATION TYPE: CT abdomen pelvis w con DATE OF EXAM: 04/07/2023 COMPARISON: 10/20/2020 INDICATION: abd pain DLP: 619.9 mGycm, Automated exposure control for dose reduction was used. CONTRAST: 80 mL of Isovue 300. Study performed without Oral Contrast TECHNIQUE: Axial images were obtained from above the diaphragm to the pubic rami in the axial plane a t 5 mm thick sections. Reconstructed images are reviewed on the computer in the coronal plane. FINDINGS: Limited CT sections are obtained the lung bases. The lung bases are clear. Pneumatocele may be in t he right lung base CT ABDOMEN: Liver: Normal Spleen: Normal Pancreas: Pancreatic duct is prominent at 0.4 cm. Normal less than 0.3 cm. Consider follow-up with ER CP. The common bile duct is mildly dilated at the head of the pancreas measuring 1.1 cm. Adrenal glands: The adrenal glands are normal. Gallbladder: Not identified may be postsurgical. Kidneys: No masses are evident. No hydronephrosis is present. No cysts are present. Delayed images were obtained through the kidneys, which remain unremarkable. Aorta: Vascular calcification is within the aorta. Inferior vena cava: Normal. CT PELVIS: Fecal debris is within the colon. There is fecal bolus is at the rectum. Correlate for fecal impactio n. No suspicious dilated loops of bowel are evident. Scattered diverticuli within the colon. This shayna dy is without oral contrast limiting bowel evaluation. Appendix: Normal as visualized. Urinary bladder: Distended. Genitourinary structures: Uterus is normal. Calcified fibroid may be within the uterus. Adnexa is un remarkable Osseous structures: No suspicious lytic or sclerotic lesions. : Doses within the lumbar spine. IMPRESSION: 1. Fecal bolus at the rectum. Correlate for fecal impaction. Some mild fecal retention is present. 2. Distended urinary bladder. 3. Dilated pancreatic duct. Consider follow-up with ERCP
[2023-04-07] MEDS ORDERED: PHENAZOPYRIDINE 200 MG TAB PO STA (21:15)
[2023-04-07 21:47] VITALS: BP 188/78; PULSE 70; RESP 20; TEMP 98.2
== END 2023-04-07 21:46 | disposition home or self-care (01) ==
LOC: EC 14:43
DX: K64.9 Unspecified hemorrhoids (principal); N39.0 Urinary tract infection, site not specified; I10 Essential (primary) hypertension; E07.9 Disorder of thyroid, unspecified; Z87.891 Personal history of nicotine dependence; Z88.5 Allergy status to narcotic agent; Z88.8 Allergy status to other drugs, medicaments and biological substances; Z88.0 Allergy status to penicillin; Z79.890 Hormone replacement therapy; Z79.899 Other long term (current) drug therapy
CPT/HCPCS: 36415; 80053; 82150; 83605; 83690; 85025; 82272; 81001; 74177; 99284; 96374; 96361; J1885; Q9967

== ENCOUNTER 2023-04-08 04:40 | Observation (INO) | payer MEDICARE, OTHER ==
[2023-04-08 05:44] LABS: ALT 33 U/L (4-34); AST 74 U/L (14-36); African American GFR (CKD) 46 (>60 ml/min/1.73 sqM); Albumin 3.9 g/dL (3.5-5.0); Alkaline Phosphatase 78 U/L (38-126); Anion Gap 8 mmol/L; Blood Urea Nitrogen 30 mg/dL (7-17); Calcium 9.2 mg/dL (8.4-10.2); Carbon Dioxide 20 mmol/L (22-30); Chloride 113 mmol/L (98-107); Glucose 107 mg/dL (74-99); Magnesium 2.1 mg/dL (1.6-2.3); Non-African American GFR(CKD) 40 (>60 ml/min/1.73 sqM); Potassium 3.7 mmol/L (3.5-5.1); Sodium 141 mmol/L (137-145); Total Bilirubin 0.6 mg/dL (0.2-1.3); Total Protein 6.5 g/dL (6.3-8.2)
[2023-04-08 05:54] LABS: Basophils % (A) 0 %; Eosinophils # (A) 0.1 k/uL (0-0.7); Eosinophils % (A) 2 %; HCT 43.2 % (34.0-46.0); HGB 14.1 gm/dL (11.4-16.0); Lymphocytes # (A) 0.5 k/uL (1.0-4.8); Lymphocytes % (A) 10 %; MCH 31.1 pg (25.0-35.0); MCHC 32.6 g/dL (31.0-37.0); MCV 95.2 fL (80.0-100.0); Mean Platelet Volume 9.4; Monocytes # (A) 0.6 k/uL (0-1.0); Monocytes % (A) 10 %; Neutrophils # (A) 4.1 k/uL (1.3-7.7); Neutrophils % (A) 75 %; Partial Thromboplastin Time 20.9 sec (22.0-30.0); Platelet Count 142 k/uL (150-450); Prothrombin Time 10.2 sec (9.0-12.0); RBC 4.54 m/uL (3.80-5.40); WBC 5.5 k/uL (3.8-10.6)
[2023-04-08] MEDS ORDERED: NALOXONE 0.4 MG/ML 1 ML VIAL IV PRN (06:04)
--- NOTE | 2023-04-08 06:04 | ED ---
Chest Pain HPI - General Chief Complaint: Chest Pain Stated Complaint: Chest pain Time Seen by Provider: 04/08/23 04:45 Source: EMS Mode of arrival: EMS - History of Present Illness Initial Comments: 87-year-old female past medical history of hypertension who presents to the emergency room with chest pain. States it woke up her up from sleep. The pain is located substernally with radiation through to her back. Caused her to be extremely diaphoretic. States the pain was 10 out of 10 with associated nausea. No vomiting. She did take 3 antacid pills which did not alleviate her symptoms. She called EMS who provided her with 4 chewable 81 mg aspirin and a sublingual nitro. States that the pain was resolved with these medications. She has no pain upon hospital arrival. Denies associated shortness of breath. No fevers, chills or cough. No calf pain or swelling. No other alleviating, precipitating or modifying factors - Related Data Home Medications Medication Instructions Recorded Confirmed Levothyroxine Sodium [Synthroid] 50 mcg PO DAILY 05/07/19 11/03/21 Losartan [Cozaar] 50 mg PO DAILY 05/07/19 11/03/21 Vit C/E/Zn/Coppr/Lutein/Zeaxan 1 cap PO BID 05/07/19 11/03/21 [Preservision Areds 2 Softgel] Mometasone Furoate [Elocon 0.1% 1 applic BOTH EARS DAILY PRN 07/06/20 11/03/21 Top Soln] fluocinolone acetonide oiL 1 drop BOTH EARS DAILY PRN 07/06/20 11/03/21 [fluocinolone acetonide oiL 0.01% (Otic)] Cholecalciferol (Vitamin D3) 125 mcg PO DAILY 08/31/20 11/03/21 [Vitamin D3 (5000 Iu)] Tear Support 3 drop BOTH EYES DAILY 08/31/20 11/03/21 ALPRAZolam [Xanax] 0.5 mg PO TID PRN 11/03/21 11/03/21 Biotin 5 mg PO DAILY 11/03/21 11/03/21 Fiber W/Vitamin B 2 tab PO DAILY 11/03/21 11/03/21 Fish Oil/Dha/Epa [Fish Oil 1,200 1 cap PO DAILY 11/03/21 11/03/21 mg Fish Oil] Ipratropium [place] 0.06%Nasal 2 spr EA NOSTRIL BID PRN 11/03/21 11/03/21 [Atrovent Nasal 0.06%] Lactobacillus Rhamnosus GG 1 cap PO DAILY 11/03/21 11/03/21 [Culturelle] Loperamide HCl [Imodium A-D] 2 mg PO DAILY 11/03/21 11/03/21 Meclizine [Antivert] 12.5 - 25 mg PO TID 11/03/21 11/03/21 Multivitamins, Thera [Multivitamin 1 tab PO DAILY 11/03/21 11/03/21 (formulary)] [place]-3 Fatty Acids [[place]-3] 1,000 mg PO DAILY 11/03/21 11/03/21 Triamterene-Hctz 37.5-25Mg 1 tab PO DAILY 11/03/21 11/03/21 [Maxzide 37.5-25] Verapamil HCl [Verapamil Sr] 120 mg PO DAILY 11/03/21 11/03/21 Vitamin B Complex 1 cap PO DAILY 11/03/21 11/03/21 cycloSPORINE [Restasis] 1 drop BOTH EYES BID 11/03/21 11/03/21 predniSONE [Deltasone] See Taper PO DAILY 11/03/21 11/03/21 Previous Rx's Medication Instructions Recorded Phenazopyridine [Pyridium] 100 mg PO TID PRN #9 tablet 04/07/23 Phenazopyridine [Pyridium] 100 mg PO TID PRN #9 tablet 04/07/23 Sulfamethox-Tmp 800-160Mg [Bactrim 1 tab PO Q12HR 3 Days #6 tab 04/07/23 DS 800-160 mg] Sulfamethox-Tmp 800-160Mg [Bactrim 1 each PO Q12HR 3 Days #6 tab 04/07/23 Ds] Allergies Allergy/AdvReac Type Severity Reaction Status Date / Time Penicillins Allergy Rash/Hives Verified 04/08/23 05:11 alendronate sodium AdvReac Unknown Verified 04/08/23 05:11 [From Fosamax] caffeine AdvReac Nausea & Verified 04/08/23 05:11 Vomiting codeine AdvReac Unknown Verified 04/08/23 05:11 fentanyl AdvReac Nausea & Verified 04/08/23 05:11 Vomiting midazolam [From Versed] AdvReac Nausea & Verified 04/08/23 05:11 Vomiting risperidone AdvReac Unknown Verified 04/08/23 05:11 Review of Systems ROS Statement: Those systems with pertinent positive or pertinent negative responses have been documented in the HPI. ROS Other: All systems not noted in ROS Statement are negative. 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,IBS History of Any Multi-Drug Resistant Organisms: None Reported Past Surgical History: Cholecystectomy, Ear Surgery Additional Past Surgical History / Comment(s): james eyes, glaucoma procedures Past Anesthesia/Blood Transfusion Reactions: Motion Sickness, Postoperative Nausea & Vomiting (PONV) Past Psychological History: No Psychological Hx Reported Smoking Status: Former smoker Past Alcohol Use History: None Reported Past Drug Use History: None Reported - Past Family History Mother Family Medical History: Cancer Additional Family Medical History / Comment(s): lung Father Family Medical History: Cancer Additional Family Medical History / Comment(s): sinuses General Exam General appearance: alert, in no apparent distress Head exam: Present: atraumatic, normocephalic, normal inspection Eye exam: Present: normal appearance, PERRL, EOMI. Absent: scleral icterus, conjunctival injection, periorbital swelling ENT exam: Present: normal exam, mucous membranes moist Neck exam: Present: normal inspection. Absent: tenderness, meningismus, lymphadenopathy Respiratory exam: Present: normal lung sounds bilaterally. Absent: respiratory distress, wheezes, rales, rhonchi, stridor Cardiovascular Exam: Present: regular rate, normal rhythm, normal heart sounds. Absent: systolic murmur, diastolic murmur, rubs, gallop, clicks GI/Abdominal exam: Present: soft, normal bowel sounds. Absent: distended, tenderness, guarding, rebound, rigid Extremities exam: Present: normal inspection, full ROM, normal capillary refill. Absent: tenderness, pedal edema, joint swelling, calf tenderness Back exam: Present: normal inspection Neurological exam: Present: alert, oriented X3, CN II-XII intact Psychiatric exam: Present: normal affect, normal mood Skin exam: Present: warm, dry, intact, normal color. Absent: rash Course Vital Signs 09/05/2104/08/23 04/08/23 04:43 04:46 04:47 Temperature 98 F 97.4 F L Pulse Rate 70 74 Respiratory 19 17 Rate Blood Pressure 129/86 O2 Sat by Pulse 93 L Oximetry 04/08/23 04/08/23 05:15 06:11 Temperature Pulse Rate 63 Respiratory 16 16 Rate Blood Pressure 152/77 162/77 O2 Sat by Pulse 94 L Oximetry Chest Pain MDM - MDM Was pt. sent in by a medical professional or institution (, PA, [employer], urgent care, hospital, or penitentiary...) When possible be specific @ -No Did you speak to anyone other than the patient for history (EMS, parent, family, police, friend...)? What history was obtained from this source @ -I spoke with EMS and regards the patient's symptoms Did you review nursing and triage notes (agree or disagree)? Why? @ -I reviewed and agree with nursing and triage notes Were old charts reviewed (outside hosp., previous admission, EMS record, old EKG, old radiological studies, urgent care reports/EKG's, penitentiary records)? Report findings @ -No old charts were reviewed Differential Diagnosis (chest pain, altered mental status, abdominal pain women, abdominal pain men, vaginal bleeding, weakness, fever, dyspnea, syncope, headac he, dizziness, GI bleed, back pain, seizure, CVA, palpatations, mental health, musculoskeletal)? @ -Differential Chest Pain: Stable Angina, Unstable Angina, STEMI, NSTEMI Aortic Dissection, Pneumothorax, Musculoskeletal, Esophageal Spasm GERD, Cholecystitis, Pancreatitis, Zoster, this is not meant to be an all-inclusive list. EKG interpreted by me (3pts min.). @ -Yes and demonstrates sinus rhythm with rate of 70. MN intervals 201. QRS 102. QTC of 419. No acute ST segment elevations or depressions Repeat EKG 6:51 AM demonstrates sinus rhythm with a rate of 61. MN interval 196. QRS 100. QTC of 447. No acute ST segment elevations or depressions X-rays interpreted by me (1pt min.). @ -Yes and demonstrates no acute intrathoracic process CT interpreted by me (1pt min.). @ -None done U/S interpreted by me (1pt. min.). @ -None done What testing was considered but not performed or refused? (CT, X-rays, U/S, labs)? Why? @ -None What meds were considered but not given or refused? Why? @ -None Did you discuss the management of the patient with other professionals (professionals i.e. , PA, [employer], lab, RT, psych nurse, social science professor, journeyman millwright, teacher, dental officer, case reviewer)? Give summary @ -Spoke with Dr. Mercado who will admit the patient Was smoking cessation discussed for >3mins.? @ -No Was critical care preformed (if so, how long)? @ -No Were there social determinants of health that impacted care today? How? (Homelessness, low income, unemployed, alcoholism, drug addiction, transportation, low edu. Level, literacy, decrease access to med. care, care home, rehab)? @ -No Was there de-escalation of care discussed even if they declined (Discuss DNR or withdrawal of care, Hospice)? DNR status @ -No What co-morbidities impacted this encounter? (DM, HTN, Smoking, COPD, CAD, Cancer, CVA, ARF, Chemo, Hep., AIDS, mental health diagnosis, sleep apnea, morbid obesity)? @ -Hypertension Was patient admitted / discharged? Hospital course, mention meds given and route, prescriptions, significant lab abnormalities, going to OR and other pertinent info. @ -Upon arrival patient was placed into trauma two. Thorough history and physical exam was performed. Patient placed on continuous pulse ox and cardiac monitoring. 12-lead EKG is obtained which demonstrates no acute ST segment elevation. Patient is pain-free at this time. IV is established and laboratory studies were conducted. Troponin is negative. Chest x-rays read by myself as negative for any acute process. I did recommend admission for which the patient was agreeable. Spoke with Dr. Mercado who agreed to admit the patient. We will trend her troponins and consult cardiology. Patient admitted in stable condition Undiagnosed new problem with uncertain prognosis? @ -yes Drug Therapy requiring intensive monitoring for toxicity (Heparin, Nitro, Insulin, Cardizem)? @ -No Were any procedures done? @ -No Diagnosis/symptom? @ -Acute chest pain, possible ACS Acute, or Chronic, or Acute on Chronic? @ -Acute Uncomplicated (without systemic symptoms) or Complicated (systemic symptoms)? @ -Complicated Side effects of treatment? @ -No Exacerbation, Progression, or Severe Exacerbation? @ -No Poses a threat to life or bodily function? How? (Chest pain, [place], [place], pneumonia, PE, COPD, DKA, ARF, appy, cholecystitis, CVA, Diverticulitis, Homicidal, Suicidal, threat to staff... and all critical care pts) @ -Yes patient possibly suffers from acute coronary syndrome Disposition Clinical Impression: Chest pain Disposition: ADMITTED IP TO THIS [facility] Condition: Stable Is patient prescribed a controlled substance at d/c from ED?: No Time of Disposition: 06:04 Decision to Admit Reason: Admit from EC Decision Date: 04/08/23 Decision Time: 06:04
--- NOTE | 2023-04-08 07:33 | XR ---
EXAMINATION TYPE: XR chest 2V DATE OF EXAM: 04/08/2023 COMPARISON: 03/27/2022 INDICATION: Chest pain TECHNIQUE: Frontal and lateral views of the chest are obtained. FINDINGS: The heart size is normal. The pulmonary vasculature is normal. There is a retrocardiac infiltrate. Correlate for pneumonia. Follow-up 2 view chest is recommended.. IMPRESSION: 1. Posterior infiltrate suspicious for pneumonia. Follow-up exam is recommended
[2023-04-08] MEDS ORDERED: ALPRAZolam 0.5 MG TAB PO PRN (07:40)
--- NOTE | 2023-04-08 11:08 | P.HPIM ---
History of Present Illness H&P Date: 04/08/23 Chief Complaint: chest pain Opal Sanders, is an 87-year-old female patient who presented with concerns of chest pain. Patient reports she had episode of chest pain that woke her up from sleep that radiated to her back and neck patient apparently took 3 antiacid pills that did not alleviate her symptoms. Patient denies any recent illness cough or shortness of breath. Patient reports symptoms improved upon arrival to the hospital. Patient has a past medical history of hypertension, thyroid disorder, IBS and cholecystectomy. Chest x-ray completed in the ER showing possible infiltrate suspicious for pneumonia. Patient does not have fever white count within normal limits no complaints of cough or shortness of breath. At this time will order repeat 2 view chest x-ray and consult pulmonary services. We'll hold off on starting antibiotics until further testing and input from pulmonary. Creatinine slightly elevated at 1.22 and Bun 30. Initial Troponin negative. At this time cardiology services have been consulted 2-D echo has been ordered. Pulmonary cardiology service is consulted. Patient denies chest pain or shortness of breath. Patient denies nausea vomiting or diarrhea. Patient stated that she had a previous visit to [facility] emergency room one day prior to this presentation, at that time she was having abdominal discomfort and urinary symptoms, she was diagnosed with urinary tract infection and given a prescription for a course of antibiotic. Review of Systems Please refer to HPI otherwise unremarkable 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,IBS History of Any Multi-Drug Resistant Organisms: None Reported Past Surgical History: Cholecystectomy, Ear Surgery Additional Past Surgical History / Comment(s): james eyes, glaucoma procedures Past Anesthesia/Blood Transfusion Reactions: Motion Sickness, Postoperative Nausea & Vomiting (PONV) Past Psychological History: No Psychological Hx Reported Smoking Status: Former smoker Past Alcohol Use History: None Reported Past Drug Use History: None Reported - Past Family History Mother Family Medical History: Cancer Additional Family Medical History / Comment(s): lung Father Family Medical History: Cancer Additional Family Medical History / Comment(s): sinuses Medications and Allergies Home Medications Medication Instructions Recorded Confirmed Type Levothyroxine Sodium [Synthroid] 50 mcg PO DAILY 05/07/19 11/03/21 History Losartan [Cozaar] 50 mg PO DAILY 05/07/19 11/03/21 History Vit C/E/Zn/Coppr/Lutein/Zeaxan 1 cap PO BID 05/07/19 11/03/21 History [Preservision Areds 2 Softgel] Mometasone Furoate [Elocon 0.1% 1 applic BOTH EARS DAILY PRN 07/06/20 11/03/21 History Top Soln] fluocinolone acetonide oiL 1 drop BOTH EARS DAILY PRN 07/06/20 11/03/21 History [fluocinolone acetonide oiL 0.01% (Otic)] Cholecalciferol (Vitamin D3) 125 mcg PO DAILY 08/31/20 11/03/21 History [Vitamin D3 (5000 Iu)] Tear Support 3 drop BOTH EYES DAILY 08/31/20 11/03/21 History ALPRAZolam [Xanax] 0.5 mg PO TID PRN 11/03/21 11/03/21 History Biotin 5 mg PO DAILY 11/03/21 11/03/21 History Fiber W/Vitamin B 2 tab PO DAILY 11/03/21 11/03/21 History Fish Oil/Dha/Epa [Fish Oil 1,200 1 cap PO DAILY 11/03/21 11/03/21 History mg Fish Oil] Ipratropium [place] 0.06%Nasal 2 spr EA NOSTRIL BID PRN 11/03/21 11/03/21 History [Atrovent Nasal 0.06%] Lactobacillus Rhamnosus GG 1 cap PO DAILY 11/03/21 11/03/21 History [Culturelle] Loperamide HCl [Imodium A-D] 2 mg PO DAILY 11/03/21 11/03/21 History Meclizine [Antivert] 12.5 - 25 mg PO TID 11/03/21 11/03/21 History Multivitamins, Thera [Multivitamin 1 tab PO DAILY 11/03/21 11/03/21 History (formulary)] [place]-3 Fatty Acids [[place]-3] 1,000 mg PO DAILY 11/03/21 11/03/21 History Triamterene-Hctz 37.5-25Mg 1 tab PO DAILY 11/03/21 11/03/21 History [Maxzide 37.5-25] Verapamil HCl [Verapamil Sr] 120 mg PO DAILY 11/03/21 11/03/21 History Vitamin B Complex 1 cap PO DAILY 11/03/21 11/03/21 History cycloSPORINE [Restasis] 1 drop BOTH EYES BID 11/03/21 11/03/21 History predniSONE [Deltasone] See Taper PO DAILY 11/03/21 11/03/21 History Phenazopyridine [Pyridium] 100 mg PO TID PRN #9 tablet 04/07/23 Rx Phenazopyridine [Pyridium] 100 mg PO TID PRN #9 tablet 04/07/23 Rx Sulfamethox-Tmp 800-160Mg [Bactrim 1 tab PO Q12HR 3 Days #6 tab 04/07/23 Rx DS 800-160 mg] Sulfamethox-Tmp 800-160Mg [Bactrim 1 each PO Q12HR 3 Days #6 tab 04/07/23 Rx Ds] Allergies Allergy/AdvReac Type Severity Reaction Status Date / Time Penicillins Allergy Rash/Hives Verified 04/08/23 05:11 alendronate sodium AdvReac Unknown Verified 04/08/23 05:11 [From Fosamax] caffeine AdvReac Nausea & Verified 04/08/23 05:11 Vomiting codeine AdvReac Unknown Verified 04/08/23 05:11 fentanyl AdvReac Nausea & Verified 04/08/23 05:11 Vomiting midazolam [From Versed] AdvReac Nausea & Verified 04/08/23 05:11 Vomiting risperidone AdvReac Unknown Verified 04/08/23 05:11 Physical Exam Vitals: Vital Signs Temp Pulse Resp BP BP Pulse Ox 04/08/23 09:00 22 163/83 04/08/23 06:11 63 16 162/77 94 L 04/08/23 05:15 16 152/77 04/08/23 04:47 97.4 F L 74 17 129/86 93 L 04/08/23 04:46 70 19 04/08/23 04:43 98 F Intake and Output 04/07/23 04/08/23 04/08/23 22:59 06:59 14:59 Other: Weight 58.513 kg In general patient is alert and oriented x 3 in no distress HEENT head normocephalic and atraumatic Neck is supple no JVD no goiter no lymphadenopathy no carotid bruit Chest examination is clear to auscultation no crackles no wheezing Cardiac exam reveals regular heart sounds S1 and S2 no gallops no murmurs Abdomen is soft nontender no organomegaly with normal bowel sounds Extremity exam reveals no edema no cyanosis or clubbing Neurological examination reveals no gross focal deficits Results CBC & Chem 7: 04/08/23 04:50 04/08/23 04:50 Labs: Abnormal Lab Results - Last 24 Hours (Table) 04/08/23 04/08/23 04/08/23 Range/Units 04:50 04:50 04:50 Plt Count 142 L (150-450) k/uL Lymphocytes # 0.5 L (1.0-4.8) k/uL APTT 20.9 L (22.0-30.0) sec Chloride 113 H (98-107) mmol/L Carbon Dioxide 20 L (22-30) mmol/L BUN 30 H (7-17) mg/dL Creatinine 1.22 H (0.52-1.04) mg/dL Glucose 107 H (74-99) mg/dL AST 74 H (14-36) U/L Assessment and Plan Assessment: 1. Chest pain. Troponin negative. We'll consult cardiology services 2-D echo ordered 2. Abnormal chest x-ray seen with possible infiltrate. Patient asymptomatic at this time no fever no white count. Will order repeat 2 view chest x-ray consult pulmonary services 3. History of essential hypertension 4. History of hypothyroidism 5. History of IBS 6. UTI. Patient presented to the ER yesterday and was found to have elevated leukocytosis in UA. Patient will be started on antibiotics for urinary tract DVT prophylaxis Lovenox. GI prophylaxis Protonix Cardiology on a services consulted 2-D echo ordered Two-view chest x-ray ordered UA urine culture ordered
[2023-04-08] MEDS: CIPROFLOXACIN HCL 250 MG TAB PO SCH ×2 (11:54→20:07)
[2023-04-08] MEDS: ASPIRIN 81 MG PO SCH (11:54)
--- NOTE | 2023-04-08 12:37 | P.CRDCN ---
History of Present Illness Consult date: 04/08/23 Consult reason: chest pain Chief complaint: chest pain History of present illness: History of present illness: Patient is a pleasant 87-year-old female with significant past medical history of hypertension, IBS, hemorrhoids who presented to the emergency department with complaints of chest pain. She reports that she woke up in the night due to severe chest pain, she was sweaty and nauseous at this time. She also felt like she was going to pass out. She got up and walked around symptoms did not improve, she then tried antacids with no improvement. Symptoms lasted for 1-2 hours before she called EMS. She reports that she was given aspirin and nitro in the ambulance and the pain resolved after that. She does report having another episode of chest pain while in the emergency department, but is currently pain free. She does complain of feeling lightheadedness when bending over for the past 1 week. She does also report that she was in the emergency department the day prior due to severe diarrhea and was diagnosed with a urinary tract infection but has not started antibiotics yet. She denies any fevers or chills, no recent cough or cold. She denies any shortness of breath. 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 She was a former smoker but quit approximately 35 years ago, she drinks occasional alcohol 1-2 times a week, denies any drug use. Chest x-ray shows posterior infiltrate suspicious for pneumonia. EKG shows sinus rhythm with no significant ST or T wave changes. Labs reviewed, troponin negative 2, LDL 109, TSH normal, WBC 5.5, hemoglobin 14.1, creatinine 1.22, potassium 3.7, magnesium 2.1. REVIEW OF SYSTEMS: No fever or chills. No cough or expectoration. No diaphoresis. Patient denies headache, dizziness, blurred vision, double vision. Patient denies any stomach discomfort. No nausea, vomiting. No hematochezia. No hematemesis. Denies any black stools or blood in his stools. Reports diarrhea. Denies dysuria or hematuria. No muscle weakness or numbness. No chest pain or pressure currently. PHYSICAL EXAMINATION: This is a 87-year-old female in no apparent distress at the time of my examination. HEENT: Head is atraumatic, normocephalic. Pupils are equal, round. Sclerae anicteric. Conjunctivae are clear. Mucous membranes of the mouth are moist. Neck is supple. There is no jugular venous distention. No carotid bruit is heard. CHEST EXAMINATION: Lungs are clear to auscultation. No chest wall tenderness is noted on palpation or with deep breathing. HEART EXAMINATION: Heart regular rate and rhythm. S1, S2 heard. Soft systolic murmur. No gallops or rub. ABDOMEN: Soft, nontender. Bowel sounds are heard. No organomegaly noted. EXTREMITIES: 2+ peripheral pulses with no evidence of peripheral edema and no calf tenderness noted. NEUROLOGIC EXAMINATION: Patient is awake, alert and oriented x3. IMPRESSION AND PLAN: Chest pain concerning for possible ACS Hypertension Hyperlipidemia Irritable bowel syndrome Urinary tract infection PLAN: Trend troponin. We will check echocardiogram to evaluate heart function and structure. We'll plan for a Lexiscan stress test in the morning to rule out inducible ischemia. Start aspirin 81 mg. Nitroglycerin when necessary. We will follow. I am dictating on behalf of Dr. Nader Michelle's history/physical and a ssessment/plan. 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,IBS History of Any Multi-Drug Resistant Organisms: None Reported Past Surgical History: Cholecystectomy, Ear Surgery Additional Past Surgical History / Comment(s): james eyes, glaucoma procedures Past Anesthesia/Blood Transfusion Reactions: Motion Sickness, Postoperative Nausea & Vomiting (PONV) Past Psychological History: No Psychological Hx Reported Smoking Status: Former smoker Past Alcohol Use History: None Reported Past Drug Use History: None Reported - Past Family History Mother Family Medical History: Cancer Additional Family Medical History / Comment(s): lung Father Family Medical History: Cancer Additional Family Medical History / Comment(s): sinuses Medications and Allergies Home Medications Medication Instructions Recorded Confirmed Type Levothyroxine Sodium [Synthroid] 50 mcg PO DAILY 05/07/19 11/03/21 History Losartan [Cozaar] 50 mg PO DAILY 05/07/19 11/03/21 History Vit C/E/Zn/Coppr/Lutein/Zeaxan 1 cap PO BID 05/07/19 11/03/21 History [Preservision Areds 2 Softgel] Mometasone Furoate [Elocon 0.1% 1 applic BOTH EARS DAILY PRN 07/06/20 11/03/21 History Top Soln] fluocinolone acetonide oiL 1 drop BOTH EARS DAILY PRN 07/06/20 11/03/21 History [fluocinolone acetonide oiL 0.01% (Otic)] Cholecalciferol (Vitamin D3) 125 mcg PO DAILY 08/31/20 11/03/21 History [Vitamin D3 (5000 Iu)] Tear Support 3 drop BOTH EYES DAILY 08/31/20 11/03/21 History ALPRAZolam [Xanax] 0.5 mg PO TID PRN 11/03/21 11/03/21 History Biotin 5 mg PO DAILY 11/03/21 11/03/21 History Fiber W/Vitamin B 2 tab PO DAILY 11/03/21 11/03/21 History Fish Oil/Dha/Epa [Fish Oil 1,200 1 cap PO DAILY 11/03/21 11/03/21 History mg Fish Oil] Ipratropium [place] 0.06%Nasal 2 spr EA NOSTRIL BID PRN 11/03/21 11/03/21 History [Atrovent Nasal 0.06%] Lactobacillus Rhamnosus GG 1 cap PO DAILY 11/03/21 11/03/21 History [Culturelle] Loperamide HCl [Imodium A-D] 2 mg PO DAILY 11/03/21 11/03/21 History Meclizine [Antivert] 12.5 - 25 mg PO TID 11/03/21 11/03/21 History Multivitamins, Thera [Multivitamin 1 tab PO DAILY 11/03/21 11/03/21 History (formulary)] Viola-3 Fatty Acids [Viola-3] 1,000 mg PO DAILY 11/03/21 11/03/21 History Triamterene-Hctz 37.5-25Mg 1 tab PO DAILY 11/03/21 11/03/21 History [Maxzide 37.5-25] Verapamil HCl [Verapamil Sr] 120 mg PO DAILY 11/03/21 11/03/21 History Vitamin B Complex 1 cap PO DAILY 11/03/21 11/03/21 History cycloSPORINE [Restasis] 1 drop BOTH EYES BID 11/03/21 11/03/21 History predniSONE [Deltasone] See Taper PO DAILY 11/03/21 11/03/21 History Phenazopyridine [Pyridium] 100 mg PO TID PRN #9 tablet 04/07/23 Rx Phenazopyridine [Pyridium] 100 mg PO TID PRN #9 tablet 04/07/23 Rx Sulfamethox-Tmp 800-160Mg [Bactrim 1 tab PO Q12HR 3 Days #6 tab 04/07/23 Rx DS 800-160 mg] Sulfamethox-Tmp 800-160Mg [Bactrim 1 each PO Q12HR 3 Days #6 tab 04/07/23 Rx Ds] Allergies Allergy/AdvReac Type Severity Reaction Status Date / Time Penicillins Allergy Rash/Hives Verified 04/08/23 05:11 alendronate sodium AdvReac Unknown Verified 04/08/23 05:11 [From Fosamax] caffeine AdvReac Nausea & Verified 04/08/23 05:11 Vomiting codeine AdvReac Unknown Verified 04/08/23 05:11 fentanyl AdvReac Nausea & Verified 04/08/23 05:11 Vomiting midazolam [From Versed] AdvReac Nausea & Verified 04/08/23 05:11 Vomiting risperidone AdvReac Unknown Verified 04/08/23 05:11 Physical Exam Vitals: Vital Signs Temp Pulse Resp BP BP Pulse Ox 04/08/23 09:00 22 163/83 04/08/23 06:11 63 16 162/77 94 L 04/08/23 05:15 16 152/77 04/08/23 04:47 97.4 F L 74 17 129/86 93 L 04/08/23 04:46 70 19 04/08/23 04:43 98 F Intake and Output 04/07/23 04/08/23 04/08/23 22:59 06:59 14:59 Other: Weight 58.513 kg Results 04/08/23 04:50 04/08/23 04:50 Cardiac Enzymes 04/08/23 04/08/23 04/08/23 Range/Units 04:50 04:50 11:20 AST 74 H (14-36) U/L Troponin I <0.012 <0.012 (0.000-0.034) ng/mL Coagulation 04/08/23 Range/Units 04:50 PT 10.2 (9.0-12.0) sec APTT 20.9 L (22.0-30.0) sec CBC 04/08/23 Range/Units 04:50 WBC 5.5 (3.8-10.6) k/uL RBC 4.54 (3.80-5.40) m/uL Hgb 14.1 (11.4-16.0) gm/dL Hct 43.2 (34.0-46.0) % Plt Count 142 L (150-450) k/uL Comprehensive Metabolic Panel 04/08/23 Range/Units 04:50 Sodium 141 (137-145) mmol/L Potassium 3.7 (3.5-5.1) mmol/L Chloride 113 H (98-107) mmol/L Carbon Dioxide 20 L (22-30) mmol/L BUN 30 H (7-17) mg/dL Creatinine 1.22 H (0.52-1.04) mg/dL Glucose 107 H (74-99) mg/dL Calcium 9.2 (8.4-10.2) mg/dL AST 74 H (14-36) U/L ALT 33 (4-34) U/L Alkaline Phosphatase 78 (38-126) U/L Total Protein 6.5 (6.3-8.2) g/dL Albumin 3.9 (3.5-5.0) g/dL Current Medications Generic Name Dose Route Start Last Admin Trade Name Freq PRN Reason Stop Dose Admin Alprazolam 0.5 mg 04/08/23 07:40 04/08/23 08:41 Alprazolam 0.5 Mg Tab PO 0.5 mg TID PRN Administration Anxiety Aminophylline 100 mg 04/09/23 06:00 Aminophylline 500 Mg/20 Ml Vial IV 04/09/23 23:00 ONCE PRN Patient Response Aspirin 81 mg 04/08/23 10:45 04/08/23 11:54 Aspirin 81 Mg PO 81 mg DAILY ELAINE Administration Caffeine Citrate 60 mg 04/09/23 06:00 Caffeine Citrate 60 Mg/3 Ml Vial IV 04/09/23 23:00 ONCE PRN Patient Response Ciprofloxacin 250 mg 04/08/23 11:30 04/08/23 11:54 Ciprofloxacin Hcl 250 Mg Tab PO 250 mg BID ELAINE Administration Protocol Enoxaparin Sodium 40 mg 04/09/23 09:00 Enoxaparin 40 Mg/0.4 Ml Syringe SQ DAILY ELAINE Naloxone HCl 0.2 mg 04/08/23 06:04 Naloxone 0.4 Mg/Ml 1 Ml Vial IV Q2M PRN Opioid Reversal Pantoprazole Sodium 40 mg 04/09/23 07:30 Pantoprazole 40 Mg Tablet PO AC-BRKFST ELAINE Regadenoson 0.4 mg 04/09/23 06:00 Regadenoson 0.4 Mg/5 Ml Syringe IV 04/09/23 23:00 ONCE PRN Per Protocol Intake and Output 04/07/23 04/08/23 04/08/23 22:59 06:59 14:59 Other: Weight 58.513 kg 04/08/23 04:50 04/08/23 04:50
[2023-04-08] MEDS ORDERED: LOPERAMIDE 2 MG PO PRN (22:33)
[2023-04-08 23:45] LABS: Appearance,Urine Clear (Clear); Bilirubin,Urine Negative (Negative); Blood,Urine Negative (Negative); Color,Urine Brown; Glucose,Urine (UA) Negative (Negative); Ketones,Urine Negative (Negative); Leukocyte Esterase,Urine Negative (Negative); Mucus,Urine Rare /hpf; Nitrite,Urine Positive (Negative); PH, Urine 5.5 (5.0-8.0); Protein,Urine Negative (Negative); RBC,Urine 1 /hpf (0-5); Squamous Epithelial Cell,Urine <1 /hpf (0-4); Urobilinogen,Urine <2.0 mg/dL (<2.0); WBC,Urine 2 /hpf (0-5)
[2023-04-09] MEDS ORDERED: CAFFEINE CITRATE 60 MG/3 ML VIAL IV PRN (06:00)
[2023-04-09] MEDS ORDERED: REGADENOSON 0.4 MG/5 ML SYRINGE IV PRN (06:00)
[2023-04-09] MEDS ORDERED: AMINOPHYLLINE 500 MG/20 ML VIAL IV PRN (06:00)
[2023-04-09] MEDS ORDERED: PANTOPRAZOLE 40 MG TABLET PO SCH (07:30)
[2023-04-09 08:40] LABS: Basophils # (A) 0.02 X 10*3/uL (0.00-0.10); Basophils % (A) 0.3 %; Eosinophils # (A) 0.34 X 10*3/uL (0.04-0.35); Eosinophils % (A) 4.7 %; HCT 37.2 % (37.2-46.3); HGB 12.3 d/dL (12.0-15.0); Lymphocytes # (A) 0.85 X 10*3/uL (0.90-5.00); Lymphocytes % (A) 11.7 %; MCH 31.3 pg (27.0-32.0); MCHC 33.1 d/dL (32.0-37.0); MCV 94.7 FL (80.0-97.0); Mean Platelet Volume 11.4 FL (9.5-12.2); Monocytes # (A) 0.81 X 10*3/uL (0.20-1.00); Monocytes % (A) 11.2 %; NRBC Per 100 WBC 0 X 10*3/uL (0.00-0.01); Neutrophils # (A) 5.22 X 10*3/uL (1.80-7.70); Neutrophils % (A) 71.8 %; Platelet Count 147 X 10*3/uL (140-440); RBC 3.93 X 10*6/uL (4.10-5.20); RDW 13.2 % (11.5-14.5); WBC 7.26 X 10*3/uL (4.50-10.00)
[2023-04-09 08:51] LABS: Blood Urea Nitrogen 17.1 mg/dL (9.0-27.0); Calcium 8.7 mg/dL (8.7-10.3); Carbon Dioxide 26.7 mmol/L (21.6-31.8); Chloride 105 mmol/L (96-109); Glucose 99 mg/dL (70-110); Potassium 4.1 mmol/L (3.5-5.5); Sodium 139 mmol/L (135-145)
[2023-04-09] MEDS ORDERED: ENOXAPARIN 40 MG/0.4 ML SYRINGE SQ SCH (09:00)
[2023-04-09] MEDS: ASPIRIN 81 MG PO SCH (09:27)
[2023-04-09] MEDS: CIPROFLOXACIN HCL 250 MG TAB PO SCH (09:27)
--- NOTE | 2023-04-09 10:50 | CA ---
Transthoracic Echo Report Name: Opal Nguyen Age: 87 Gender: F : 1935 Exam Date: 04/09/2023 08:55 Exam Location: [place] [facility] Ht (in): 65 Wt (lb): 129 Ordering Physician: Nader Michelle DO ([email or web address]) Attending/Referring Phys: Tool Procurement Coordinator Dorothy Riggs RDCS Procedure CPT: Indications: re: CP Cardiac Hx: limited study Technical Quality: Good Contrast 1: Total Dose (mL): Contrast 2: Total Dose (mL): MEASUREMENTS (Male / Female) Normal Values 2D ECHO LV Diastolic Volume MOD 4C 76.3 cm??? LV Systolic Volume MOD 4C 39.2 cm??? LV Ejection Fraction MOD 4C 48.6 % LV Cardiac Index MOD 4C 1471.7 cm???/min???m??? LV Diastolic Length 4C 7.1 cm LV Systolic Length 4C 6.0 cm LV Diastolic Volume MOD 2C 45.0 cm??? LV Systolic Volume MOD 2C 12.5 cm??? LV Ejection Fraction MOD 2C 72.3 % LV Cardiac Index MOD 2C 1289.0 cm???/min???m??? LV Diastolic Length 2C 6.8 cm LV Systolic Length 2C 5.7 cm LA Volume 55.8 cm??? 18 - 58 / 22 - 52 cm??? DOPPLER AV Peak Velocity 148.6 cm/s AV Peak Gradient 8.8 mmHg AI Peak Velocity 303.1 cm/s AI Peak Gradient 36.7 mmHg AI Pressure Half Time 1126.0 ms TR Peak Velocity 212.9 cm/s TR Peak Gradient 18.1 mmHg Right Ventricular Systolic Press 23.1 mmHg FINDINGS Left Ventricle Left ventricular ejection fraction is estimated at 60-65 %.normal left ventricular wall motion. Left ventricular cavity size normal. Right Ventricle Normal right ventricular size and function. Right Atrium Normal right atrial size. Left Atrium Mildly increased left atrial volume. Mitral Valve Structurally normal mitral valve. Mild mitral regurgitation.mitral annular calcification. Aortic Valve Trileaflet aortic valve. Mild aortic regurgitation.aortic valve sclerosis. Tricuspid Valve Structurally normal tricuspid valve. Trace to mild tricuspid regurgitation. Pulmonic Valve Structurally normal pulmonic valve. Trace pulmonic regurgitation. Pericardium No pericardial effusion. Aorta CONCLUSIONS 1. Normal left ventricle size and systolic function 2. Mild mitral and aortic regurgitation 3. Trace to mild tricuspid regurgitation with no evidence of pulmonary hypertension Previewed by: Dr. Marjorie Le MD (Electronically Signed) Final Date: 09 April 2023 10:49
--- NOTE | 2023-04-09 10:54 | CA ---
Lexiscan Nuclear Stress Test Report Name: Opal Nguyen Exam Date: 04/09/2023 10:13 Exam Location: [facility] Ht (in): 65 Wt (lb): 129 BSA: 1.64 Ordering Phys: Nader Michelle DO Referring Phys: [id number],, Technologist: Miles Brooke Age: 87 Gender: F : 1935 Procedure CPT: Indications: Reflex order-Stress test ICD-10 Codes: Patient History: CHEST PAIN, HTN, PRIOR SMOKER, CARDIAC CATH Medications: Meds past 24 hrs: Pretest Chest Pain: STRESS TEST Lexiscan Protocol Exercise Duration (min:sec): 01:[address] Depressions (mm): Angina Score: Moses Score: Resting HR (bpm): 65 Peak HR (bpm): 87 Resting BP (mmHg): 150 / 85 Peak BP (mmHg): / 63 MPHR: 133 Target HR: 113 % MPHR: 65 METS: 1.0 Total Dose: Peak Dose: Atropine: Double Product: BP Response: Stress Termination: INFUSION COMPLETE Stress Symptoms: NO SYMPTOMS Stress Summary: ECG ANALYSIS Resting ECG: Sinus rhythm. Normal conduction. No arrhythmias. Normal repolarization. Stress ECG: No ECG changes from baseline with Lexiscan infusion. CONCLUSIONS No ECG evidence of ischemia with Lexiscan infusion. Nuclear test results to follow. Dr. Marjorie Le MD (Electronically Signed) Final Date: 09 April 2023 10:53
--- NOTE | 2023-04-09 11:16 | P.PN ---
Subjective HISTORY OF PRESENT ILLNESS: Patient is a pleasant 87-year-old female with significant past medical history of hypertension, IBS, hemorrhoids who presented to the emergency department with complaints of chest pain. She reports that she woke up in the night due to severe chest pain, she was sweaty and nauseous at this time. She also felt like she was going to pass out. She got up and walked around symptoms did not impr ove, she then tried antacids with no improvement. Symptoms lasted for 1-2 hours before she called EMS. She reports that she was given aspirin and nitro in the ambulance and the pain resolved after that. She does report having another episode of chest pain while in the emergency department, but is currently pain free. She does complain of feeling lightheadedness when bending over for the past 1 week. She does also report that she was in the emergency department the day prior due to severe diarrhea and was diagnosed with a urinary tract infection but has not started antibiotics yet. She denies any fevers or chills, no recent cough or cold. She denies any shortness of breath. 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 She was a former smoker but quit approximately 35 years ago, she drinks occasional alcohol 1-2 times a week, denies any drug use. Chest x-ray shows posterior infiltrate suspicious for pneumonia. EKG shows sinus rhythm with no significant ST or T wave changes. Labs reviewed, troponin negative 2, LDL 109, TSH normal, WBC 5.5, hemoglobin 14.1, creatinine 1.22, pot assium 3.7, magnesium 2.1. 04/09/2023 Patient examined this morning at the bedside. The patient states she has had no further episodes of chest pain or pressure. She currently denies shortness of breath. Vital signs are stable. Blood pressure 127/71. Telemetry reveals sinus mechanism. PHYSICAL EXAM: VITAL SIGNS: Reviewed. GENERAL: Well-developed in no acute distress. NECK: Supple. No JVD or thyromegaly LUNGS: Respirations even and unlabored. Lungs essentially clear to auscultation bilaterally. HEART: Regular rate and rhythm. S1 and S2 heard. + Systolic murmur EXTREMITIES: Normal range of motion. No clubbing or cyanosis. Peripheral pulses intact. No lower extremity edema ASSESSMENT: Chest pain, troponins negative 3 Urinary tract infection Hypertension Hyperlipidemia Irritable bowel syndrome PLAN: Continue current cardiac medications Patient scheduled for Lexiscan stress test today. If negative, the patient may be discharged home from a cardiac standpoint and follow up on an outpatient basis with Dr. Michelle Nurse practitioner note has been reviewed by physician. Signing provider agrees with the documented findings, assessment, and plan of care. Objective - Vital Signs Vital signs: Vital Signs Temp 97.9 F 04/09/23 07:00 Pulse 65 04/09/23 08:00 Resp 16 04/09/23 08:00 BP 127/71 04/09/23 07:00 Pulse Ox 96 04/09/23 07:00 FiO2 Intake & Output 04/08/23 04/09/23 04/09/23 18:59 06:59 18:59 Weight 58.513 kg Other: Voiding Method External Catheter Toilet Diaper # Voids 0 - Labs CBC & Chem 7: 04/09/23 05:37 04/09/23 05:37 Labs: Abnormal Lab Results - Last 24 Hours (Table) 04/08/23 04/09/23 04/09/23 Range/Units 22:40 05:37 05:37 RBC 3.93 L (4.10-5.20) X 10*6/uL Lymphocytes # 0.85 L (0.90-5.00) X 10*3/uL Est GFR (CKD-EPI) 55 L (>=60) Urine Nitrite Positive H (Negative) Urine Mucus Rare H (None) /hpf
--- NOTE | 2023-04-09 12:21 | XR ---
EXAMINATION TYPE: XR chest 2V DATE OF EXAM: 04/09/2023 12:17 PM COMPARISON: Chest radiographs from 04/08/2023 TECHNIQUE: XR chest 2V Frontal and lateral views of the chest. CLINICAL INDICATION:Female, 87 years old with history of follow up infiltrate; FINDINGS: Lungs/Pleura: No pleural effusion or pneumothorax. Improvement in retrocardiac airspace opacities fro m prior examination. Pulmonary vascularity: Unremarkable. Heart/mediastinum: Cardiomediastinal silhouette is unremarkable. Atherosclerotic calcifications are seen in the aorta. Musculoskeletal: No acute osseous pathology. IMPRESSION: Improvement in retrocardiac airspace opacities from prior examination.
--- NOTE | 2023-04-09 15:13 | NM ---
EXAMINATION TYPE: NM stress lexiscan cardiolite DATE OF EXAM: 04/09/2023 COMPARISON: NONE CLINICAL INDICATION: Female, 87 years old with history of re: CP; TECHNIQUE: After the intravenous administration of 10.21 mCi Tc 99m Sestamibi - Cardiolite resting S PECT images acquired 70 minutes post injection. The patient received 0.4mg Lexiscan, 26 mCi Tc 99m Sestamibi - Stress images obtained 45 minutes post injection FINDINGS: Review of stress and rest SPECT images demonstrates no distinct perfusion abnormality. Gated analysi s shows normal wall motion with an estimated left ventricular ejection fraction of 65 %. IMPRESSION: No scintigraphic evidence for reversible ischemia.
--- NOTE | 2023-04-09 15:41 | P.CNPUL ---
History of Present Illness Consult date: 04/09/23 Reason for consult: pneumonia History of present illness: 87-year-old female patient was hospitalized for chest pain. I was asked to evaluate this patient for pneumonia and the patient had a left retrocardiac infiltrate on the chest x-ray. Nevertheless, the patient denies having any cough or sputum production. No fever. No chills. No aspiration. The patient presented with pain across her chest and shoulders and back, a constant type of achiness along with some sweating. She also felt nauseated. No significant abdominal pain. No shortness of breath. She is a former smoker and she quit smoking more than 30 years ago. Her chest x-ray was discussed above. Troponins were negative. White cell count of 12.5. Also, the patient was given an echocardiogram that showed no acute abnormalities and the Lexiscan scan cardiac stress test showed no evidence of any reversible ischemia. The patient has chronic IBS. Her pro calcitonin level is normal. Oxygenation is also within normal limits. Review of Systems Constitutional: Denies chills, Denies fever Eyes: denies as per HPI, denies blurred vision, denies bulging eye, denies decreased vision, denies diplopia, denies discharge, denies dry eye, denies irritation, denies itching, denies pain, denies photophobia, denies loss of peripheral vision, denies loss of vision, denies tunnel vision/blind spots Ears: deny: decreased hearing, ear discharge, earache, tinnitus Ears, nose, mouth and throat: Reports as per HPI Breasts: absent: as per HPI, change in shape, gynecomastia, masses, nipple discharge, pain, skin changes, swelling Cardiovascular: Reports chest pain Respiratory: Reports as per HPI Gastrointestinal: Reports as per HPI (irritable bowel syndrome ) Genitourinary: Reports as per HPI Menstruation: Reports as per HPI Musculoskeletal: Reports as per HPI Musculoskeletal: absent: ankle pain, ankle stiffness, ankle swelling Integumentary: Reports as per HPI Neurological: Reports as per HPI Psychiatric: Reports as per HPI Endocrine: Reports as per HPI Hematologic/Lymphatic: Reports as per HPI Allergic/Immunologic: Reports as per HPI 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,IBS History of Any Multi-Drug Resistant Organisms: None Reported Past Surgical History: Cholecystectomy, Ear Surgery Additional Past Surgical History / Comment(s): james eyes, glaucoma procedures Past Anesthesia/Blood Transfusion Reactions: Motion Sickness, Postoperative Nausea & Vomiting (PONV) Smoking Status: Former smoker - Past Family History Mother Family Medical History: Cancer Additional Family Medical History / Comment(s): lung Father Family Medical History: Cancer Additional Family Medical History / Comment(s): sinuses Medications and Allergies Home Medications Medication Instructions Recorded Confirmed Type Vit C/E/Zn/Coppr/Lutein/Zeaxan 1 cap PO BID 05/07/19 04/08/23 History [Preservision Areds 2 Softgel] fluocinolone acetonide oiL 1 drop BOTH EARS DAILY PRN 07/06/20 04/08/23 History [fluocinolone acetonide oiL 0.01% (Otic)] Cholecalciferol (Vitamin D3) 125 mcg PO DAILY 08/31/20 04/08/23 History [Vitamin D3 (5000 Iu)] Tear Support 3 drop BOTH EYES DAILY 08/31/20 04/08/23 History ALPRAZolam [Xanax] 0.5 mg PO Q8H PRN 11/03/21 04/08/23 History Ipratropium [place] 0.06%Nasal 2 spr EA NOSTRIL BID PRN 11/03/21 04/08/23 History [Atrovent Nasal 0.06%] Loperamide HCl [Imodium A-D] 2 - 4 mg PO QID PRN 11/03/21 04/08/23 History Meclizine [Antivert] 12.5 mg PO BID PRN 11/03/21 04/08/23 History Triamterene-Hctz 37.5-25Mg 1 tab PO Q48H 11/03/21 04/08/23 History [Maxzide 37.5-25] Verapamil HCl [Verapamil Sr] 120 mg PO DAILY 11/03/21 04/08/23 History Vitamin B Complex 1 cap PO DAILY 11/03/21 04/08/23 History cycloSPORINE [Restasis] 1 drop BOTH EYES BID 11/03/21 04/08/23 History Bifidobacterium Infantis [Align] 4 mg PO DAILY 04/08/23 04/08/23 History Dupilumab [Dupixent Pen] 300 mg SQ Q14D 04/08/23 04/08/23 History Levothyroxine Sodium [Synthroid] 25 mcg PO DAILY 04/08/23 04/08/23 History Losartan Potassium 100 mg PO DAILY 04/08/23 04/08/23 History Mometasone Furoate [Nasonex 50 MCG] 1 spr EA NOSTRIL DAILY PRN 04/08/23 04/08/23 History [place]-3 720mg 1 cap PO DAILY 04/08/23 04/08/23 History Turmeric Root Extract [Turmeric] 500 mg PO DAILY 04/08/23 04/08/23 History polyethylene glycoL 3350 [Miralax] 17 gm PO DAILY PRN 04/08/23 04/08/23 History Allergies Allergy/AdvReac Type Severity Reaction Status Date / Time Penicillins Allergy Rash/Hives Verified 04/08/23 13:08 alendronate sodium AdvReac Unknown Verified 04/08/23 13:08 [From Fosamax] caffeine AdvReac Nausea & Verified 04/08/23 13:08 Vomiting codeine AdvReac Unknown Verified 04/08/23 13:08 fentanyl AdvReac Nausea & Verified 04/08/23 13:08 Vomiting midazolam [From Versed] AdvReac Nausea & Verified 04/08/23 13:08 Vomiting risperidone AdvReac Unknown Verified 04/08/23 13:08 Physical Exam Vitals: Vital Signs Temp Pulse Resp BP BP Pulse Ox 04/09/23 14:00 65 16 04/09/23 08:00 65 16 04/09/23 07:00 97.9 F 65 16 127/71 96 04/09/23 04:12 98.0 F 67 16 125/67 96 04/08/23 21:02 98.8 F 70 15 108/62 94 L 04/08/23 16:52 97.6 F 70 16 148/74 93 L Intake and Output 04/09/23 04/09/23 04/09/23 06:59 14:59 22:59 Other: Voiding Method Toilet Diaper # Voids 0 1 The patient appeared well nourished and normally developed. Vital signs as docum ented. Head exam is unremarkable. No scleral icterus or corneal arcus noted. Neck is without jugular venous distension, thyromegaly, or carotid bruits. Carotid upstrokes are brisk bilaterally. Lungs are clear to auscultation and percussion. Cardiac exam reveals the PMI to be normally sized and situated. Rhythm is regular. First and second heart sounds normal. No murmurs, rubs or gallops. Abdominal exam reveals normal bowel sounds, no masses, no organomegaly and no aortic enlargement. Extremities are nonedematous and both femoral and pedal pulses are normal. Results - Laboratory Findings CBC and BMP: 04/09/23 05:37 04/09/23 05:37 PT/INR, D-dimer PT 10.2 sec (9.0-12.0) 04/08/23 04:50 INR 1.0 (<1.2) 04/08/23 04:50 Abnormal lab findings: Abnormal Labs 04/08/23 04/08/23 04/08/23 04:50 04:50 04:50 RBC Plt Count 142 L Lymphocytes # 0.5 L APTT 20.9 L Chloride 113 H Carbon Dioxide 20 L BUN 30 H Creatinine 1.22 H Est GFR (CKD-EPI) Glucose 107 H AST 74 H Urine Nitrite Urine Mucus 04/08/23 04/09/23 04/09/23 22:40 05:37 05:37 RBC 3.93 L Plt Count Lymphocytes # 0.85 L APTT Chloride Carbon Dioxide BUN Creatinine Est GFR (CKD-EPI) 55 L Glucose AST Urine Nitrite Positive H Urine Mucus Rare H - Diagnostic Findings Chest x-ray: image reviewed Assessment and Plan Plan: Nonspecific chest pain, recovered. No clinical evidence of pneumonia. No radiographic evidence of pneumonia. CAT scan of the abdomen was done in the lung bases are essentially clear and there is no clear indication for pneumonia this patient. Meanwhile, the cardiac workup was done. Troponins are negative. Echocardiogram was negative. Cardiac stress test was also negative Irritable bowel syndrome Hypertension Hyperlipidemia Chronic degenerative disc disease Macular degeneration Hypertension Hypothyroidism Plan No pulmonary concerns Cardiac workup has been completed Possible discharge today if cleared by the primary care team and the rest of the consultants
[2023-04-09 15:51] VITALS: BP 147/72; PULSE 77; RESP 18; TEMP 97
--- NOTE | 2023-04-09 16:59 | P.DS ---
Providers Date of admission: 04/08/23 06:04 Expected date of discharge: 04/09/23 Attending physician: Clem Mercado Consults: 04/08/23 06:04 Consult Physician Urgent Consulting Provider: [facility] Consult Reason/Comments: acute chest pain Do you want consulting provider notified?: Yes 04/08/23 10:15 Consult Physician Routine Consulting Provider: Silverio Navarro Reason/Comments: possible pneumonia Do you want consulting provider notified?: Yes Primary care physician: Clem Rogelio [facility] Course: Diagnosis on discharge: 1. Chest pain. Troponin negative. We'll consult cardiology services 2-D echo ordered 2. Abnormal chest x-ray seen with possible infiltrate. Patient asymptomatic at this time no fever no white count. Will order repeat 2 view chest x-ray consult pulmonary services 3. History of essential hypertension 4. History of hypothyroidism 5. History of IBS 6. UTI. Patient presented to the ER yesterday and was found to have elevated leukocytosis in UA. Patient will be started on antibiotics for urinary tract Hospital course: Opal Sanders, is an 87-year-old female patient who presented with concerns of chest pain. Patient reports she had episode of chest pain that woke her up from sleep that radiated to her back and neck patient apparently took 3 antiacid pills that did not alleviate her symptoms. Patient denies any recent illness cough or shortness of breath. Patient reports symptoms improved upon arrival to the hospital. Patient has a past medical history of hypertension, thyroid disorder, IBS and cholecystectomy. Chest x-ray completed in the ER showing possible infiltrate suspicious for pneumonia. Patient does not have fever white count within normal limits no complaints of cough or shortness of breath. At this time will order repeat 2 view chest x-ray and consult pulmonary services. We'll hold off on starting antibiotics until further testing and input from pulmonary. Creatinine slightly elevated at 1.22 and Bun 30. Initial Troponin negative. At this time cardiology services have been consulted 2-D echo has been ordered. Pulmonary cardiology service is consulted. Patient denies chest pain or shortness of breath. Patient denies nausea vomiting or diarrhea. Patient stated that she had a previous visit to [facility] emergency room one day prior to this presentation, at that time she was having abdominal discomfort and urinary symptoms, she was diagnosed with urinary tract infection and given a prescription for a course of antibiotic. On 04/09/2023 patient was seen and examined on the medical floor she is alert and oriented 3 in no apparent distress there is no fever or chills no headache or dizziness no new episodes of chest pain no shortness of breath no palpitation no cough no nausea or vomiting no abdominal pain no diarrhea, no blood in the stools, she is complaining of burning with urination and frequency with urination. Patient was evaluated by cardiology she underwent a Lexiscan stress test which was within normal limits, she was also evaluated by pulmonary and was cleared fo r discharge by cardiology and pulmonary. Patient was discharged home today she will be followed in our office was in 1 week for further evaluation and treatment. She was given a prescription for ciprofloxacin for urinary tract infection. Patient Condition at Discharge: Stable Plan - Discharge Summary Discharge Rx Participant: Yes New Discharge Prescriptions: New Ciprofloxacin HCl [Cipro] 250 mg PO BID tab Aspirin 81 mg PO DAILY tab Continue Vit C/E/Zn/Coppr/Lutein/Zeaxan [Preservision Areds 2 Softgel] 1 cap PO BID fluocinolone acetonide oiL [fluocinolone acetonide oiL 0.01% (Otic)] 1 drop BOTH EARS DAILY PRN PRN Reason: itchiness Tear Support 3 drop BOTH EYES DAILY Cholecalciferol (Vitamin D3) [Vitamin D3 (5000 Iu)] 125 mcg PO DAILY ALPRAZolam [Xanax] 0.5 mg PO Q8H PRN PRN Reason: Anxiety cycloSPORINE [Restasis] 1 drop BOTH EYES BID Loperamide HCl [Imodium A-D] 2 - 4 mg PO QID PRN PRN Reason: Diarrhea Meclizine [Antivert] 12.5 mg PO BID PRN PRN Reason: Vertigo [place]-3 720mg 1 cap PO DAILY Levothyroxine Sodium [Synthroid] 25 mcg PO DAILY Losartan Potassium 100 mg PO DAILY Turmeric Root Extract [Turmeric] 500 mg PO DAILY Ipratropium [place] 0.06%Nasal [Atrovent Nasal 0.06%] 2 spr EA NOSTRIL BID PRN PRN Reason: Congestion Triamterene-Hctz 37.5-25Mg [Maxzide 37.5-25] 1 tab PO Q48H Verapamil HCl [Verapamil Sr] 120 mg PO DAILY Vitamin B Complex 1 cap PO DAILY Bifidobacterium Infantis [Align] 4 mg PO DAILY Dupilumab [Dupixent Pen] 300 mg SQ Q14D Mometasone Furoate [Nasonex 50 MCG] 1 spr EA NOSTRIL DAILY PRN PRN Reason: Allergy Symptoms polyethylene glycoL 3350 [Miralax] 17 gm PO DAILY PRN PRN Reason: Constipation Discharge Medication List Vit C/E/Zn/Coppr/Lutein/Zeaxan [Preservision Areds 2 Softgel] 1 cap PO BID 05/07/19 [History] fluocinolone acetonide oiL [fluocinolone acetonide oiL 0.01% (Otic)] 1 drop BOTH EARS DAILY PRN 07/06/20 [History] Cholecalciferol (Vitamin D3) [Vitamin D3 (5000 Iu)] 125 mcg PO DAILY 08/31/20 [History] Tear Support 3 drop BOTH EYES DAILY 08/31/20 [History] ALPRAZolam [Xanax] 0.5 mg PO Q8H PRN 11/03/21 [History] Ipratropium [place] 0.06%Nasal [Atrovent Nasal 0.06%] 2 spr EA NOSTRIL BID PRN 11/03/21 [History] Loperamide HCl [Imodium A-D] 2 - 4 mg PO QID PRN 11/03/21 [History] Meclizine [Antivert] 12.5 mg PO BID PRN 11/03/21 [History] Triamterene-Hctz 37.5-25Mg [Maxzide 37.5-25] 1 tab PO Q48H 11/03/21 [History] Verapamil HCl [Verapamil Sr] 120 mg PO DAILY 11/03/21 [History] Vitamin B Complex 1 cap PO DAILY 11/03/21 [History] cycloSPORINE [Restasis] 1 drop BOTH EYES BID 11/03/21 [History] Bifidobacterium Infantis [Align] 4 mg PO DAILY 04/08/23 [History] Dupilumab [Dupixent Pen] 300 mg SQ Q14D 04/08/23 [History] Levothyroxine Sodium [Synthroid] 25 mcg PO DAILY 04/08/23 [History] Losartan Potassium 100 mg PO DAILY 04/08/23 [History] Mometasone Furoate [Nasonex 50 MCG] 1 spr EA NOSTRIL DAILY PRN 04/08/23 [History] [place]-3 720mg 1 cap PO DAILY 04/08/23 [History] Turmeric Root Extract [Turmeric] 500 mg PO DAILY 04/08/23 [History] polyethylene glycoL 3350 [Miralax] 17 gm PO DAILY PRN 04/08/23 [History] Aspirin 81 mg PO DAILY tab 04/09/23 [Rx] Ciprofloxacin HCl [Cipro] 250 mg PO BID tab 04/09/23 [Rx] Follow up Appointment(s)/Referral(s): Nader Michelle DO [STAFF PHYSICIAN] - 1 Week Clem Mercado MD [Primary Care Provider] - 1-2 days
== END 2023-04-09 17:20 | disposition home or self-care (01) ==
LOC: EC 04:40 → 6NMEDSUR 06:04
PROVIDERS: ADMIT Internal Medicine; ATTEND Internal Medicine
DX: R07.9 Chest pain, unspecified (principal); I10 Essential (primary) hypertension; E78.5 Hyperlipidemia, unspecified; R91.8 Other nonspecific abnormal finding of lung field; N39.0 Urinary tract infection, site not specified; E07.9 Disorder of thyroid, unspecified; G58.9 Mononeuropathy, unspecified; H35.3230 Exudative age-related macular degeneration, bilateral, stage unspecified; K58.9 Irritable bowel syndrome, unspecified; Z90.49 Acquired absence of other specified parts of digestive tract; Z87.891 Personal history of nicotine dependence; Z98.890 Other specified postprocedural states; Z79.899 Other long term (current) drug therapy; Z88.5 Allergy status to narcotic agent; Z88.0 Allergy status to penicillin; Z88.8 Allergy status to other drugs, medicaments and biological substances; Z86.69 Personal history of other diseases of the nervous system and sense organs; Z91.018 Allergy to other foods; Z80.1 Family history of malignant neoplasm of trachea, bronchus and lung; Z80.8 Family history of malignant neoplasm of other organs or systems; Z79.890 Hormone replacement therapy
CPT/HCPCS: 96372; 99285; 36415; 93005; 93308; 93017; 80053; 80048; 83735; 84484; 85025 ×2; 85610; 85730; 81001; 84145; 71046 ×2; 78452; G0378 ×2; A9500; J1650; J2785

== ENCOUNTER → 2023-05-23 | Outpatient (CLI) | payer MEDICARE, OTHER | END | disposition home or self-care (01) | LOC: LABWHC1 10:11 | PROVIDERS: ATTEND Otolaryngology | DX: J30.89 Other allergic rhinitis (principal) | CPT/HCPCS: 36415 ==

== ENCOUNTER → 2023-09-25 | Outpatient (CLI) | payer MEDICARE, OTHER ==
--- NOTE | 2023-09-25 11:30 | XR ---
EXAMINATION TYPE: XR tibia fibula RT DATE OF EXAM: 09/25/2023 10:59 AM CLINICAL INDICATION:Female, 88 years old with history of R52 PAIN, UNSPECIFIED; COMPARISON: 08/09/2019. TECHNIQUE: XR tibia fibula RT; tibia/fibula was examined in AP and lateral projections. FINDINGS: Degeneration changes of the tibial plateau and patella with osteophytes. No evidence of any acute osseous pathology, joint dislocation, or soft tissue swelling is noted. Chondrocalcinosis. IMPRESSION: No evidence of acute fracture.
== END | disposition home or self-care (01) ==
LOC: RADXRMAIN 10:18
PROVIDERS: ATTEND Internal Medicine
DX: S89.91XA Unspecified injury of right lower leg, initial encounter (principal); M79.661 Pain in right lower leg; W19.XXXA Unspecified fall, initial encounter

== ENCOUNTER 2023-11-19 17:41 | Emergency (ER) | payer MEDICARE, OTHER ==
[2023-11-19 18:30] VITALS: PULSE 71; RESP 20; TEMP 98.1
--- NOTE | 2023-11-19 19:20 | US ---
EXAMINATION TYPE: US venous doppler duplex LE LT DATE OF EXAM: 11/19/2023 7:07 PM COMPARISON: 03/29/2016 CLINICAL INDICATION: Female, 88 years old with history of pain; left leg pain. No hx of DVT. On blood thinners SIDE PERFORMED: Left TECHNIQUE: The lower extremity deep venous system is examined utilizing real time linear array sonog jun with graded compression, doppler sonography and color-flow sonography. VESSELS IMAGED: Common Femoral Vein Deep Femoral Vein Greater Saphenous Vein * Femoral Vein Popliteal Vein Small Saphenous Vein * Proximal Calf Veins (* superficial vessels) The deep venous system of the left lower extremity from the common femoral vein to the proximal calf veins is patent and compressible with augmentable flow and normal waveforms. IMPRESSION: No evidence of left lower extremity DVT from the common femoral vein to the proximal calf veins.
--- NOTE | 2023-11-19 19:50 | ED ---
General Adult HPI - General Chief complaint: Extremity Problem,Nontraumatic Stated complaint: Pain in L leg Time Seen by Provider: 11/19/23 18:15 Source: patient, RN notes reviewed Mode of arrival: ambulatory Limitations: no limitations - History of Present Illness Initial comments: 88-year-old female presents to the emergency department for evaluation of left lower extremity pain. Patient was sent in by her primary care provider for a DVT rule out. She states that she is on blood thinners but she cannot currently remember the name. She states that the pain has been going on for around 2 months. She states that the pain is constant. She has taken Tylenol for this in the past. She denies recent fever, chills. Denies lower extremity swelling or redness. - Related Data Home Medications Medication Instructions Recorded Confirmed Vit C/E/Zn/Coppr/Lutein/Zeaxan 1 cap PO BID 05/07/19 04/08/23 [Preservision Areds 2 Softgel] fluocinolone acetonide oiL 1 drop BOTH EARS DAILY PRN 07/06/20 04/08/23 [fluocinolone acetonide oiL 0.01% (Otic)] Cholecalciferol (Vitamin D3) 125 mcg PO DAILY 08/31/20 04/08/23 [Vitamin D3 (5000 Iu)] Tear Support 3 drop BOTH EYES DAILY 08/31/20 04/08/23 ALPRAZolam [Xanax] 0.5 mg PO Q8H PRN 11/03/21 04/08/23 Ipratropium Marana 0.06%Nasal 2 spr EA NOSTRIL BID PRN 11/03/21 04/08/23 [Atrovent Nasal 0.06%] Loperamide HCl [Imodium A-D] 2 - 4 mg PO QID PRN 11/03/21 04/08/23 Meclizine [Antivert] 12.5 mg PO BID PRN 11/03/21 04/08/23 Triamterene-Hctz 37.5-25Mg 1 tab PO Q48H 11/03/21 04/08/23 [Maxzide 37.5-25] Verapamil HCl [Verapamil Sr] 120 mg PO DAILY 11/03/21 04/08/23 Vitamin B Complex 1 cap PO DAILY 11/03/21 04/08/23 cycloSPORINE [Restasis] 1 drop BOTH EYES BID 11/03/21 04/08/23 Bifidobacterium Infantis [Align] 4 mg PO DAILY 04/08/23 04/08/23 Dupilumab [Dupixent Pen] 300 mg SQ Q14D 04/08/23 04/08/23 Levothyroxine Sodium [Synthroid] 25 mcg PO DAILY 04/08/23 04/08/23 Losartan Potassium 100 mg PO DAILY 04/08/23 04/08/23 Mometasone Furoate [Nasonex 50 MCG] 1 spr EA NOSTRIL DAILY PRN 04/08/23 04/08/23 Griffin-3 720mg 1 cap PO DAILY 04/08/23 04/08/23 Turmeric Root Extract [Turmeric] 500 mg PO DAILY 04/08/23 04/08/23 polyethylene glycoL 3350 [Miralax] 17 gm PO DAILY PRN 04/08/23 04/08/23 Previous Rx's Medication Instructions Recorded Aspirin 81 mg PO DAILY tab 04/09/23 Ciprofloxacin HCl [Cipro] 250 mg PO BID tab 04/09/23 Allergies Allergy/AdvReac Type Severity Reaction Status Date / Time Penicillins Allergy Rash/Hives Verified 11/19/23 17:53 alendronate sodium AdvReac Unknown Verified 11/19/23 17:53 [From Fosamax] caffeine AdvReac Nausea & Verified 11/19/23 17:53 Vomiting codeine AdvReac Unknown Verified 11/19/23 17:53 fentanyl AdvReac Nausea & Verified 11/19/23 17:53 Vomiting midazolam [From Versed] AdvReac Nausea & Verified 11/19/23 17:53 Vomiting risperidone AdvReac Unknown Verified 11/19/23 17:53 Review of Systems ROS Statement: Those systems with pertinent positive or pertinent negative responses have been documented in the HPI. ROS Other: All systems not noted in ROS Statement are negative. 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,IBS History of Any Multi-Drug Resistant Organisms: None Reported Past Surgical History: Cholecystectomy, Ear Surgery Additional Past Surgical History / Comment(s): james eyes, glaucoma procedures Past Anesthesia/Blood Transfusion Reactions: Motion Sickness, Postoperative Nausea & Vomiting (PONV) Past Psychological History: No Psychological Hx Reported Smoking Status: Former smoker Past Alcohol Use History: None Reported Past Drug Use History: None Reported - Past Family History Mother Family Medical History: Cancer Additional Family Medical History / Comment(s): lung Father Family Medical History: Cancer Additional Family Medical History / Comment(s): sinuses General Exam Limitations: no limitations General appearance: alert, in no apparent distress Head exam: Present: atraumatic, normocephalic, normal inspection Eye exam: Present: normal appearance, PERRL, EOMI. Absent: scleral icterus, conjunctival injection, periorbital swelling ENT exam: Present: normal exam, mucous membranes moist Respiratory exam: Present: normal lung sounds bilaterally. Absent: respiratory distress, wheezes, rales, rhonchi, stridor Cardiovascular Exam: Present: regular rate, normal rhythm, normal heart sounds. Absent: systolic murmur, diastolic murmur, rubs, gallop, clicks Extremities exam: Present: normal inspection, full ROM, normal capillary refill, calf tenderness. Absent: tenderness, pedal edema, joint swelling Psychiatric exam: Present: normal affect, normal mood Skin exam: Present: warm, dry, intact, normal color. Absent: rash Course Vital Signs 11/19/23 17:51 Temperature 98.1 F Pulse Rate 71 Respiratory 20 Rate O2 Sat by Pulse 98 Oximetry Medical Decision Making - Medical Decision Making Was pt. sent in by a medical professional or institution (Dr. PA, HIM ANALYST, urgent care, hospital, or group home...) When possible be specific @ -Patient sent in by her primary care provider Did you speak to anyone other than the patient for history (EMS, parent, family, police, friend...)? What history was obtained from this source @ -No Did you review nursing and triage notes (agree or disagree)? Why? @ -I reviewed and agree with nursing and triage notes Were old charts reviewed (outside hosp., previous admission, EMS record, old EKG, old radiological studies, urgent care reports/EKG's, group home records)? Report findings @ -No old charts were reviewed Differential Diagnosis (chest pain, altered mental status, abdominal pain women, abdominal pain men, vaginal bleeding, weakness, fever, dyspnea, syncope, headache, dizziness, GI bleed, back pain, seizure, CVA, palpatations, mental health, musculoskeletal)? @ -Differential Musculoskeletal Muscular strain, contusion, ligament sprain, fracture, arthritis, septic arthritis, bursitis, cellulitis, muscle spasm, nerve compression, DVT, arterial occlusion, herpes zoster, electrolyte abnormality, tumor.... This is not meant to be in all inclusive list EKG interpreted by me (3pts min.). @ -None X-rays interpreted by me (1pt min.). @ -None done CT interpreted by me (1pt min.). @ -None done U/S interpreted by me (1pt. min.). @ -Ultrasound of the left lower extremity shows no evidence of DVT What testing was considered but not performed or refused? (CT, X-rays, U/S, labs)? Why? @ -None What meds were considered but not given or refused? Why? @ -None Did you discuss the management of the patient with other professionals (professionals i.e. , PA, HIM ANALYST, lab, RT, psych nurse, high school social science teacher, practice support specialist, teacher, security vehicle patrol officer, casework supervisor)? Give summary @ -No Was smoking cessation discussed for >3mins.? @ -No Was critical care preformed (if so, how long)? @ -No Were there social determinants of health that impacted care today? How? (Homelessness, low income, unemployed, alcoholism, drug addiction, transportation, low edu. Level, literacy, decrease access to med. care, half-way, rehab)? @ -No Was there de-escalation of care discussed even if they declined (Discuss DNR or withdrawal of care, Hospice)? DNR status @ -No What co-morbidities impacted this encounter? (DM, HTN, Smoking, COPD, CAD, Cancer, CVA, ARF, Chemo, Hep., AIDS, mental health diagnosis, sleep apnea, morbid obesity)? @ -None Was patient admitted / discharged? Hospital course, mention meds given and route, prescriptions, significant lab abnormalities, going to OR and other pertinent info. @ -Discharge. Patient presented to the emergency department for evaluation of left lower extremity pain sent in by her PCP for DVT rule out. Ultrasound was obtained which shows no evidence of DVT. Discussed this with patient. Patient left prior to formal discharge. Undiagnosed new problem with uncertain prognosis? @ -No Drug Therapy requiring intensive monitoring for toxicity (Heparin, Nitro, Insulin, Cardizem)? @ -No Were any procedures done? @ -No Diagnosis/symptom? @ -Left leg pain Acute, or Chronic, or Acute on Chronic? @ -Acute on chronic Uncomplicated (without systemic symptoms) or Complicated (systemic symptoms)? @ -Uncomplicated Side effects of treatment? @ -No Exacerbation, Progression, or Severe Exacerbation? @ -No Poses a threat to life or bodily function? How? (Chest pain, [place], [place], pneumonia, PE, COPD, DKA, ARF, appy, cholecystitis, CVA, Diverticulitis, Homicidal, Suicidal, threat to staff... and all critical care pts) @ -No Disposition Clinical Impression: Left leg pain Disposition: HOME SELF-CARE Condition: Stable Is patient prescribed a controlled substance at d/c from ED?: No Referrals: Clem Mercado MD [Primary Care Provider] - 1-2 days
== END 2023-11-19 20:38 | disposition home or self-care (01) ==
LOC: EC 17:41
DX: M79.662 Pain in left lower leg (principal); Z87.891 Personal history of nicotine dependence; Z88.0 Allergy status to penicillin; Z88.5 Allergy status to narcotic agent; Z88.8 Allergy status to other drugs, medicaments and biological substances; Z90.49 Acquired absence of other specified parts of digestive tract
CPT/HCPCS: 99283

== ENCOUNTER → 2024-02-04 | Outpatient (CLI) | payer MEDICARE, OTHER ==
--- NOTE | 2024-02-11 07:42 | BD ---
EXAMINATION TYPE: Axial Bone Density DATE OF EXAM: 02/04/2024 CLINICAL HISTORY: 88 years old Female. ICD-10 CODE: M89.9 DISORDER OF BONE, UNSPECIFIED Height: 63 Weight: 133.7 FRAX RISK QUESTIONS: Alcohol (3 or more units per day): no Family History (Parent hip fracture): no Glucocorticoids (More than 3mos): no (Ex: prednisone, prednisolone, methylprednisolone, dexamethasone, and hydrocortisone). History of Fracture in Adulthood: no Secondary Osteoporosis: 1. Type 1 Diabetes: no 2. Hyperthyroidism: no 3. Menopause before 45: no 4. Malnutrition: no 5. Chronic liver disease: no Rheumatoid Arthritis: no Current Tobacco Use: no RISK FACTORS HISTORY OF: Hip Fracture (Right/Left): no Spine Fracture: no History of Wrist Fracture: no Surgery to Spine/Hip(right/left)/Wrist (right/left): no MEDICATIONS: Thyroid Medications: Synthroid How Long: about 40 years Osteoporosis Medications: no EXAM MEASUREMENTS: Bone mineral densitometry was performed using the [employer] System. Bone mineral density as measured about the Lumbar spine is: ----- L1-L4(G/cm2): 1.076 T Score Values are as follows: ----- L1: -1.0 ----- L2: -0.8 ----- L3: -1.1 ----- L4: -0.8 ----- L1-L4: -0.9 Z Score Values are as follows: ----- L1: 1.1 ----- L2: 1.4 ----- L3: 1.1 ----- L4: 1.3 ----- L1-L4: 1.3 Bone mineral density has: decreased -1.5 % since study of: 10/21/2015 Bone mineral density about the R hip (g/cm2): 0.919 Bone mineral density about the L hip (g/cm2): 0.983 T Score values are as follows: -----R Neck: -1.4 -----L Neck: -1.0 -----R Total: -0.7 -----L Total: -0.2 Z Score values are as follows: -----R Neck: 1.3 -----L Neck: 1.6 -----R Total: 1.9 -----L Total: 2.4 Bone mineral density has: decreased -1.0 % since study of: 10/21/2015 FRAX%s: The graph provided illustrates a 10.8% chance for a major osteoporotic fx and a 3.1% chance f or the hips probability for fx in 10 years time. IMPRESSION: Osteopenia (T Score between -2.5 and -1). There is slightly increased risk of fracture and the patient may be considered for treatment. Re-Screen 2-5 years. NOTE: T-SCORE=SD OF THE YOUNG ADULT MEAN.
== END | disposition home or self-care (01) ==
LOC: RADBDWWP 10:24
PROVIDERS: ATTEND Family Medicine
DX: M85.89 Other specified disorders of bone density and structure, multiple sites (principal)
CPT/HCPCS: 77080

== ENCOUNTER → 2024-04-24 | Outpatient (CLI) | payer MEDICARE, OTHER ==
--- NOTE | 2024-04-24 12:18 | XR ---
EXAM TYPE: LUMBAR SPINE X RAY SERIES COMPARISON: NONE HISTORY: Pain TECHNIQUE: 3 views are submitted. FINDINGS: Generalized demineralization with multilobular moderate to severe degenerative disc disease and facet arthropathy. Suspect multilevel foraminal encroachment. Grade 1 anterior listhesis of L1-L2. Extensive vascular calcifications. Generalized demineralization and curvature of the spine. There is a lower pole left renal calculus measuring approximately 4 mm. Adjacent 1 to 2 mm lower pole left renal calculus. Calcifications in pelvis likely related to uterine fibroid. IMPRESSION: 1. Moderate to severe multilevel degenerative disc disease and facet arthropathy with multilevel fora arturo encroachment. [facility], , 04/24/2024 12:16 PM
== END | disposition home or self-care (01) ==
LOC: RADXRMAIN 11:54
PROVIDERS: ATTEND Family Medicine
DX: M51.16 Intervertebral disc disorders with radiculopathy, lumbar region
CPT/HCPCS: 72100

== ENCOUNTER 2024-05-01 14:54 | Emergency (ER) | payer MEDICARE, OTHER ==
--- NOTE | 2024-05-01 15:22 | ED ---
Fall HPI - General Chief Complaint: Fall Stated Complaint: Fall-head injury Time Seen by Provider: 05/01/24 15:04 Source: patient, EMS, RN notes reviewed, old records reviewed Mode of arrival: EMS - History of Present Illness Initial Comments: This is a 88-year-old female to the ER today. This patient presents today for evaluation regards to fall patient fell backwards at home while standing hit the back of her head and has a laceration to the posterior aspect of her scalp. 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: no Place Fall Occurred: home Loss of Consciousness: none Prolonged Down Time?: no Symptoms Prior to Fall: none Location: head Severity: moderate Context: tripped/slipped Associated Symptoms: denies - Related Data Home Medications Medication Instructions Recorded Confirmed fluocinolone acetonide oiL 3 - 5 drops BOTH EARS HS PRN 07/06/20 05/01/24 [fluocinolone acetonide oiL 0.01% (Otic)] Ipratropium [place] 0.06%Nasal 2 spr EA NOSTRIL BID PRN 11/03/21 05/01/24 [Atrovent Nasal 0.06%] Triamterene-Hctz 37.5-25Mg 1 tab PO Q48H 11/03/21 05/01/24 [Maxzide 37.5-25] Verapamil HCl [Verapamil Sr] 120 mg PO DAILY 11/03/21 05/01/24 cycloSPORINE [Restasis] 1 drop BOTH EYES BID 11/03/21 05/01/24 Dupilumab [Dupixent Pen] 300 mg SQ Q14D 04/08/23 05/01/24 Levothyroxine Sodium [Synthroid] 25 mcg PO DAILY 04/08/23 05/01/24 Doxycycline Monohydrate [Monodox] 100 mg PO DIRECTED 05/01/24 05/01/24 Fluocinonide 0.05% Solution 1 applic TOPICAL HS PRN 05/01/24 05/01/24 Fluticasone Nasal [place] [Flonase 1 - 2 spr EA NOSTRIL DIRECTED 05/01/24 05/01/24 Nasal [place]] PRN Valsartan 320 mg PO DAILY 05/01/24 05/01/24 hydrALAZINE HCL [Apresoline] 25 mg PO TID-W/MEALS 05/01/24 05/01/24 Allergies Allergy/AdvReac Type Severity Reaction Status Date / Time Penicillins Allergy Rash/Hives Verified 05/01/24 17:33 alendronate sodium AdvReac Unknown Verified 05/01/24 17:33 [From Fosamax] caffeine AdvReac Nausea & Verified 05/01/24 17:33 Vomiting codeine AdvReac Unknown Verified 05/01/24 17:33 fentanyl AdvReac Nausea & Verified 05/01/24 17:33 Vomiting midazolam [From Versed] AdvReac Nausea & Verified 05/01/24 17:33 Vomiting risperidone AdvReac Unknown Verified 05/01/24 17:33 Review of Systems ROS Statement: Those systems with pertinent positive or pertinent negative responses have been documented in the HPI. ROS Other: All systems not noted in ROS Statement are negative. 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,IBS History of Any Multi-Drug Resistant Organisms: None Reported Past Surgical History: Cholecystectomy, Ear Surgery Additional Past Surgical History / Comment(s): james eyes, glaucoma procedures Past Anesthesia/Blood Transfusion Reactions: Motion Sickness, Postoperative Nausea & Vomiting (PONV) Past Psychological History: No Psychological Hx Reported Smoking Status: Former smoker Past Alcohol Use History: None Reported Past Drug Use History: None Reported - Past Family History Mother Family Medical History: Cancer Additional Family Medical History / Comment(s): lung Father Family Medical History: Cancer Additional Family Medical History / Comment(s): sinuses General Exam Limitations: no limitations General appearance: alert, in no apparent distress, anxious Head exam: Present: normocephalic, normal inspection. Absent: atraumatic (Posterior scalp laceration 5 cm) Eye exam: Present: normal appearance, PERRL, EOMI. Absent: scleral icterus, conjunctival injection, periorbital swelling ENT exam: Present: normal exam, mucous membranes moist Neck exam: Present: normal inspection. Absent: tenderness, meningismus, l ymphadenopathy Respiratory exam: Present: normal lung sounds bilaterally. Absent: respiratory distress, wheezes, rales, rhonchi, stridor Cardiovascular Exam: Present: regular rate, normal rhythm, normal heart sounds. Absent: systolic murmur, diastolic murmur, rubs, gallop, clicks GI/Abdominal exam: Present: soft, normal bowel sounds. Absent: distended, tenderness, guarding, rebound, rigid Extremities exam: Present: normal inspection, full ROM, normal capillary refill. Absent: tenderness, pedal edema, joint swelling, calf tenderness Back exam: Present: normal inspection Neurological exam: Present: alert, oriented X3, CN II-XII intact Psychiatric exam: Present: normal affect, normal mood Skin exam: Present: warm, dry, intact, normal color. Absent: rash Course Vital Signs 05/01/24 05/01/24 05/01/24 15:04 15:11 15:15 Temperature 97.8 F Pulse Rate 67 71 Respiratory 20 23 25 H Rate Blood Pressure 192/105 192/105 192/105 O2 Sat by Pulse 98 98 96 Oximetry 05/01/24 05/01/24 05/01/24 15:45 16:00 16:15 Temperature Pulse Rate 70 75 71 Respiratory 18 16 16 Rate Blood Pressure 162/78 176/82 175/82 O2 Sat by Pulse 96 97 96 Oximetry 05/01/24 05/01/24 16:30 18:45 Temperature 97.9 F Pulse Rate 71 74 Respiratory 20 18 Rate Blood Pressure 165/83 180/94 O2 Sat by Pulse 96 98 Oximetry - Reevaluation(s) Reevaluation #1: 05/01/24 16:43 Medical records reviewed Reevaluation #2: 05/01/24 16:43 Patient symptoms unchanged Reevaluation #3: 05/01/24 16:43 Patient informed of results and questions answered Reevaluation #4: Was pt. sent in by a medical professional or institution (, PA, DEVELOPMENT ASSOCIATE, urgent care, hospital, or penitentiary...) When possible be specific @ -no Did you speak to anyone other than the patient for history (EMS, parent, family, police, friend...)? What history was obtained from this source @ -no Did you review nursing and triage notes (agree or disagree)? Why? @ -agree Are old charts reviewed (outside hosp., previous admission, EMS record, old EKG, old radiological studies, urgent care reports/EKG's, penitentiary records)? Report findings @ -yes Differential Diagnosis (chest pain, altered mental status, abdominal pain women, abdominal pain men, vaginal bleeding, weakness, fever, dyspnea, syncope, headache, dizziness, GI bleed, back pain, seizure, CVA, palpatations, mental health, musculoskeletal)? @ -prior EKG interpreted by me (3pts min.). @ -no X-rays interpreted by me (1pt min.). @ -yes negative for acute disease CT interpreted by me (1pt min.). @ -Yes negative for acute disease U/S interpreted by me (1pt. min.). @ -no What testing was considered but not performed or refused? (CT, X-rays, U/S, labs)? Why? @ -none What meds were considered but not given or refused? Why? @ -none Did you discuss the management of the patient with other professionals (professionals i.e. , PA, DEVELOPMENT ASSOCIATE, lab, RT, psych nurse, social organization professor, dimension mill worker, teacher, philanthropy officer, case management director)? Give summary @ -no Was smoking cessation discussed for >3mins.? @ -no Was critical care preformed (if so, how long)? @ -no Were there social determinants of health that impacted care today? How? (Homelessness, low income, unemployed, alcoholism, drug addiction, transportation, low edu. Level, literacy, decrease access to med. care, long term, rehab)? @ -none Was there de-escalation of care discussed even if they declined (Discuss DNR or withdrawal of care, Hospice)? DNR status @ -no What co-morbidities impacted this encounter? (DM, HTN, Smoking, COPD, CAD, Cancer, CVA, ARF, Chemo, Hep., AIDS, mental health diagnosis, sleep apnea, morbid obesity)? @ -none Was patient admitted / discharged? Hospital course, mention meds given and route, prescriptions, significant lab abnormalities, going to OR and other pertinent info. @ - 88 female to ER after a fall. Fall backwards hitting her head with head laceration. Laceration was repaired here in the ER. Patient is dizzy showing concussive symptoms with vertigo. Able to ambulate can be discharged home Discharge Undiagnosed new problem with uncertain prognosis? @ -no Drug Therapy requiring intensive monitoring for toxicity (Heparin, Nitro, Insulin, Cardizem)? @ -no Were any procedures done? @ -Laceration repair Diagnosis/symptom? @ -Fall with head laceration Acute, or Chronic, or Acute on Chronic? @ -Acute Uncomplicated (without systemic symptoms) or Complicated (systemic symptoms)? @ -Complicated Side effects of treatment? @ -no Exacerbation, Progression, or Severe Exacerbation? @ -exacerbation Poses a threat to life or bodily function? How? (Chest pain, [place], [place], pneumonia, PE, COPD, DKA, ARF, appy, cholecystitis, CVA, Diverticulitis, Homicidal, Suicidal, threat to staff... and all critical care pts) @ -yes extremes of age Reevaluation #5: Differential Altered Mental Status: Hypoglycemia, DKA, hypercapnia, ETOH, overdose, CO poisoning, trauma, myxedema coma, HTN encephalopathy, infection, encephalitis, psychosis, intercranial hemorrhage, hepatic encephalopathy, meningitis, CVA, this is not meant to be an all-inclusive list Procedures - Laceration Laceration #1 Consent Obtained: verbal consent Indication: laceration Site: scalp Size (cm): 5 Description: linear Size of Sutures: other ([place]) Technique: simple, interrupted Medical Decision Making - Medical Decision Making 88 female to ER after a fall. Fall backwards hitting her head with head laceration. Laceration was repaired here in the ER. Patient is dizzy showing concussive symptoms with vertigo. Able to ambulate can be discharged home - Lab Data Result diagrams: 05/01/24 15:39 05/01/24 15:39 Lab Results 05/01/24 05/01/24 05/01/24 Range/Units 15:39 15:39 15:39 WBC 6.2 (3.8-10.6) k/uL RBC 4.23 (3.80-5.40) m/uL Hgb 12.8 (11.4-16.0) gm/dL Hct 39.1 (34.0-46.0) % MCV 92.6 (80.0-100.0) fL MCH 30.3 (25.0-35.0) pg MCHC 32.7 (31.0-37.0) g/dL RDW 12.6 (11.5-15.5) % Plt Count 178 (150-450) k/uL MPV 8.5 Neutrophils % 78 % Lymphocytes % 10 % Monocytes % 8 % Eosinophils % 1 % Basophils % 0 % Neutrophils # 4.8 (1.3-7.7) k/uL Lymphocytes # 0.6 L (1.0-4.8) k/uL Monocytes # 0.5 (0-1.0) k/uL Eosinophils # 0.1 (0-0.7) k/uL Basophils # 0.0 (0-0.2) k/uL PT 10.5 (10.0-12.5) sec INR 0.9 (<1.2) APTT 21.5 L (22.0-30.0) sec Sodium 133 L (137-145) mmol/L Potassium 4.3 (3.5-5.1) mmol/L Chloride 105 (98-107) mmol/L Carbon Dioxide 23 (22-30) mmol/L Anion Gap 5 mmol/L BUN 29 H (7-17) mg/dL Creatinine 1.08 H (0.52-1.04) mg/dL Est GFR (CKD-EPI)AfAm 53 (>60 ml/min/1.73 sqM) Est GFR (CKD-EPI)NonAf 46 (>60 ml/min/1.73 sqM) Glucose 96 (74-99) mg/dL Calcium 9.3 (8.4-10.2) mg/dL Phosphorus 2.0 L (2.5-4.5) mg/dL Magnesium 1.7 (1.6-2.3) mg/dL Total Bilirubin 0.5 (0.2-1.3) mg/dL AST 29 (14-36) U/L ALT 18 (4-34) U/L Alkaline Phosphatase 71 (38-126) U/L Troponin I (0.000-0.034) ng/mL Total Protein 6.1 L (6.3-8.2) g/dL Albumin 3.9 (3.5-5.0) g/dL 05/01/24 Range/Units 15:39 WBC (3.8-10.6) k/uL RBC (3.80-5.40) m/uL Hgb (11.4-16.0) gm/dL Hct (34.0-46.0) % MCV (80.0-100.0) fL MCH (25.0-35.0) pg MCHC (31.0-37.0) g/dL RDW (11.5-15.5) % Plt Count (150-450) k/uL MPV Neutrophils % % Lymphocytes % % Monocytes % % Eosinophils % % Basophils % % Neutrophils # (1.3-7.7) k/uL Lymphocytes # (1.0-4.8) k/uL Monocytes # (0-1.0) k/uL Eosinophils # (0-0.7) k/uL Basophils # (0-0.2) k/uL PT (10.0-12.5) sec INR (<1.2) APTT (22.0-30.0) sec Sodium (137-145) mmol/L Potassium (3.5-5.1) mmol/L Chloride (98-107) mmol/L Carbon Dioxide (22-30) mmol/L Anion Gap mmol/L BUN (7-17) mg/dL Creatinine (0.52-1.04) mg/dL Est GFR (CKD-EPI)AfAm (>60 ml/min/1.73 sqM) Est GFR (CKD-EPI)NonAf (>60 ml/min/1.73 sqM) Glucose (74-99) mg/dL Calcium (8.4-10.2) mg/dL Phosphorus (2.5-4.5) mg/dL Magnesium (1.6-2.3) mg/dL Total Bilirubin (0.2-1.3) mg/dL AST (14-36) U/L ALT (4-34) U/L Alkaline Phosphatase (38-126) U/L Troponin I <0.012 (0.000-0.034) ng/mL Total Protein (6.3-8.2) g/dL Albumin (3.5-5.0) g/dL - EKG Data -: EKG Interpreted by Me (EKG sinus 70 NH 202 QRS 95 QTc 437) - Radiology Data Radiology results: report reviewed (CT brain C-spine chest and pelvis x-ray negative for traumatic injury), image reviewed Disposition Clinical Impression: Fall, Dizziness, Head injury, Occipital scalp laceration Disposition: HOME SELF-CARE Instructions (If sedation given, give patient instructions): Vertigo (ED), Fall Prevention for Older Adults (ED), Head Injury (ED) Is patient prescribed a controlled substance at d/c from ED?: No Referrals: Mckenzie Danielson MD [Primary Care Provider] - 1-2 days Time of Disposition: 18:00
[2024-05-01] MEDS: SODIUM CHLORIDE 0.9% 1,000 ML IV STA (15:37)
[2024-05-01 16:02] LABS: INR 0.9 (<1.2); Prothrombin Time 10.5 sec (10.0-12.5)
[2024-05-01 16:07] LABS: ALT 18 U/L (4-34); AST 29 U/L (14-36); African American GFR (CKD) 53 (>60 ml/min/1.73 sqM); Albumin 3.9 g/dL (3.5-5.0); Alkaline Phosphatase 71 U/L (38-126); Anion Gap 5 mmol/L; Blood Urea Nitrogen 29 mg/dL (7-17); Calcium 9.3 mg/dL (8.4-10.2); Carbon Dioxide 23 mmol/L (22-30); Chloride 105 mmol/L (98-107); Glucose 96 mg/dL (74-99); Magnesium 1.7 mg/dL (1.6-2.3); Non-African American GFR(CKD) 46 (>60 ml/min/1.73 sqM); Partial Thromboplastin Time 21.5 sec (22.0-30.0); Potassium 4.3 mmol/L (3.5-5.1); Sodium 133 mmol/L (137-145); Total Bilirubin 0.5 mg/dL (0.2-1.3); Total Protein 6.1 g/dL (6.3-8.2)
--- NOTE | 2024-05-01 16:16 | CT ---
EXAMINATION TYPE: CT brain cspine wo con CT DLP: 1327.2 mGycm, Automated exposure control for dose reduction was used. DATE OF EXAM: 05/01/2024 3:52 PM COMPARISON: 07/06/2020 CLINICAL INDICATION: Female, 88 years old with history of fall; Fall, Laceration to posterior head. N o LOC, No thinners. Denies neck pain. TECHNIQUE: Brain: Multiple axial CT images of the brain were obtained without IV contrast. Cspine: Axial CT images from the skull base to the inferior aspect of T2 we obtained without intraven ous contrast. Coronal and sagittal reformatted images were also reviewed. . FINDINGS: Brain: Extra-axial spaces: No abnormal extra-axial fluid collections. Ventricular system: Within normal limits Cerebral parenchyma: No acute intraparenchymal hemorrhage or mass effect. The -white junction is well differentiated. Cerebellum: Unremarkable. Mass effect: No evidence of midline shift. Intracranial vasculature: Atherosclerotic calcifications of the intracranial vessels. Soft tissues: . Posterior scalp laceration. Calvarium/osseous structures: No depressed skull fracture. Paranasal sinuses and mastoid air cells: Clear. Visualized orbits: Orbital contents are intact. Cervical spine: Fracture: None. Osseous structures: Multilevel degenerative disc disease changes with endplate spurring and disc oste ophyte complex's. Vertebral alignment: Slight grade 1 anterolisthesis of C7 on T1. Spinal canal/Neural Foramina: Disc osteophyte complexes at C4-C7 with at least mild spinal canal sten osis. No evidence for significant neural foraminal stenosis. Neck soft tissues: Prevertebral soft tissues are within normal limits. Other: The airway is patent. The lung apices are clear. IMPRESSION: 1. No acute intracranial process. 2. Posterior scalp laceration without evidence of fracture. 3. No evidence of cervical spine fracture. 4. Moderate multilevel degenerative disc disease. [facility], , 05/01/2024 4:13 PM
[2024-05-01 16:20] LABS: Basophils % (A) 0 %; Eosinophils # (A) 0.1 k/uL (0-0.7); Eosinophils % (A) 1 %; HCT 39.1 % (34.0-46.0); HGB 12.8 gm/dL (11.4-16.0); Lymphocytes # (A) 0.6 k/uL (1.0-4.8); Lymphocytes % (A) 10 %; MCH 30.3 pg (25.0-35.0); MCHC 32.7 g/dL (31.0-37.0); MCV 92.6 fL (80.0-100.0); Mean Platelet Volume 8.5; Monocytes # (A) 0.5 k/uL (0-1.0); Monocytes % (A) 8 %; Neutrophils # (A) 4.8 k/uL (1.3-7.7); Neutrophils % (A) 78 %; Platelet Count 178 k/uL (150-450); RBC 4.23 m/uL (3.80-5.40); RDW 12.6 % (11.5-15.5); WBC 6.2 k/uL (3.8-10.6)
--- NOTE | 2024-05-01 16:55 | XR ---
EXAMINATION TYPE: XR chest 1V DATE OF EXAM: 05/01/2024 HISTORY: Shortness of breath. COMPARISON: 04/09/2023 TECHNIQUE: Single view of the chest is submitted. FINDINGS: Demonstrated are scattered senescent parenchymal change. There is no evidence for focal infiltrate. The heart is stable. Hilar and mediastinal structures are within normal limits. Degenerative changes are seen of the dorsal spine. IMPRESSION: 1. Chronic changes without evidence for acute pulmonary disease. [facility], , 05/01/2024 4:53 PM
--- NOTE | 2024-05-01 16:55 | XR ---
EXAMINATION TYPE: XR pelvis AP view DATE OF EXAM: 05/01/2024 CLINICAL HISTORY: pain TECHNIQUE: Single view the pelvis is submitted. 2 views of the left hip are also submitted. FINDINGS: No evidence for fracture, dislocation or bony lesion. Joint spaces are well-preserved. S I joints appear symmetric. IMPRESSION: 1. No acute fracture or dislocation seen. ICD 10 NO FRACTURE, INITIAL EVALUATION [facility], , 05/01/2024 4:53 PM
[2024-05-01] MEDS: ONDANSETRON 4 MG/2 ML VIAL IVP STA (18:22)
[2024-05-01] MEDS: diphenhydrAMINE 50 MG/ML 1 ML VIAL IVP STA (18:22)
[2024-05-01 18:47] VITALS: BP 180/94; PULSE 74; RESP 18; TEMP 97.9
== END 2024-05-01 19:14 | disposition home or self-care (01) ==
LOC: EC 14:54
CPT/HCPCS: 12002; 36415; 70450; 71045; 72125; 72170; 80053; 83735; 84100; 84484; 85025; 85610; 85730; 93005; 96361; 96374; 96375; 99285

== ENCOUNTER 2024-05-08 23:29 | Inpatient (IN) | payer MEDICARE, OTHER ==
--- NOTE | 2024-05-08 23:45 | ED ---
Weakness HPI - General Stated complaint: NV Time Seen by Provider: 05/08/24 23:34 Source: RN notes reviewed, old records reviewed - History of Present Illness Initial comments: This is a 88-year-old female who presents with nausea vomiting patient presents here today with nausea vomiting without abdominal pain. No recent travel history or sick contacts recent hospital admission with a fall and head injury but no significant findings here in the emergency department today. Patient was sent in for persistent nausea vomiting from extended[facility]care facility MD Complaint: generalized weakness -: days(s) Location: generalized Severity: moderate Consistency: constant, intermittent Improves with: none Worsens with: none Associated Symptoms: nausea/vomiting - Related Data Home Medications Medication Instructions Recorded Confirmed fluocinolone acetonide oiL 3 - 5 drops BOTH EARS HS PRN 07/06/20 05/09/24 [fluocinolone acetonide oiL 0.01% (Otic)] Ipratropium [place] 0.06%Nasal 2 spr EA NOSTRIL BID PRN 11/03/21 05/09/24 [Atrovent Nasal 0.06%] Triamterene-Hctz 37.5-25Mg 1 tab PO Q48H 11/03/21 05/09/24 [Maxzide 37.5-25] Verapamil HCl [Verapamil Sr] 120 mg PO DAILY 11/03/21 05/09/24 cycloSPORINE [Restasis] 1 drop BOTH EYES BID 11/03/21 05/09/24 Dupilumab [Dupixent Pen] 300 mg SQ Q14D 04/08/23 05/09/24 Levothyroxine Sodium [Synthroid] 25 mcg PO DAILY 04/08/23 05/09/24 Doxycycline Monohydrate [Monodox] 100 mg PO DIRECTED 05/01/24 05/09/24 Fluocinonide 0.05% Solution 1 applic TOPICAL HS PRN 05/01/24 05/09/24 Fluticasone Nasal [place] [Flonase 1 - 2 spr EA NOSTRIL DIRECTED 05/01/24 05/09/24 Nasal [place]] PRN Valsartan 320 mg PO DAILY 05/01/24 05/09/24 hydrALAZINE HCL [Apresoline] 25 mg PO TID-W/MEALS 05/01/24 05/09/24 Fexofenadine/Pseudoephedrine 1 tab PO DAILY PRN 05/09/24 05/09/24 [Katlyn-D 12 Hour Tablet] Montelukast [Singulair] 10 mg PO HS 05/09/24 05/09/24 Allergies Allergy/AdvReac Type Severity Reaction Status Date / Time Penicillins Allergy Rash/Hives Verified 05/09/24 09:45 alendronate sodium AdvReac Unknown Verified 05/09/24 09:45 [From Fosamax] caffeine AdvReac Nausea & Verified 05/09/24 09:45 Vomiting codeine AdvReac Unknown Verified 05/09/24 09:45 fentanyl AdvReac Nausea & Verified 05/09/24 09:45 Vomiting midazolam [From Versed] AdvReac Nausea & Verified 05/09/24 09:45 Vomiting risperidone AdvReac Unknown Verified 05/09/24 09:45 Review of Systems ROS Statement: Those systems with pertinent positive or pertinent negative responses have been documented in the HPI. ROS Other: All systems not noted in ROS Statement are negative. 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,IBS History of Any Multi-Drug Resistant Organisms: None Reported Past Surgical History: Cholecystectomy, Ear Surgery Additional Past Surgical History / Comment(s): james eyes, glaucoma procedures Past Anesthesia/Blood Transfusion Reactions: Motion Sickness, Postoperative Nausea & Vomiting (PONV) Past Psychological History: No Psychological Hx Reported Smoking Status: Former smoker Past Alcohol Use History: None Reported Past Drug Use History: None Reported - Past Family History Mother Family Medical History: Cancer Additional Family Medical History / Comment(s): lung Father Family Medical History: Cancer Additional Family Medical History / Comment(s): sinuses General Exam General appearance: alert, in no apparent distress Head exam: Present: atraumatic, normocephalic, normal inspection Eye exam: Present: normal appearance, PERRL, EOMI. Absent: scleral icterus, conjunctival injection, periorbital swelling ENT exam: Present: normal exam, mucous membranes moist Neck exam: Present: normal inspection. Absent: tenderness, meningismus, lymphadenopathy Respiratory exam: Present: normal lung sounds bilaterally. Absent: respiratory distress, wheezes, rales, rhonchi, stridor Cardiovascular Exam: Present: regular rate, normal rhythm, normal heart sounds. Absent: systolic murmur, diastolic murmur, rubs, gallop, clicks GI/Abdominal exam: Present: soft, normal bowel sounds. Absent: distended, tenderness, guarding, rebound, rigid Extremities exam: Present: normal inspection, full ROM, normal capillary refill. Absent: tenderness, pedal edema, joint swelling, calf tenderness Back exam: Present: normal inspection Neurological exam: Present: alert, oriented X3, CN II-XII intact Psychiatric exam: Present: normal affect, normal mood Skin exam: Present: warm, dry, intact, normal color. Absent: rash Course Vital Signs 05/08/24 05/09/24 05/09/24 23:41 03:35 04:24 Temperature 99.1 F Pulse Rate 69 68 66 Respiratory 22 16 16 Rate Blood Pressure 199/93 146/72 148/82 O2 Sat by Pulse 98 99 98 Oximetry 05/09/24 05/09/24 05/09/24 06:00 08:31 08:44 Temperature Pulse Rate 67 66 Respiratory 16 12 Rate Blood Pressure 148/77 150/69 O2 Sat by Pulse 97 97 94 L Oximetry 05/09/24 11:35 Temperature Pulse Rate 74 Respiratory 18 Rate Blood Pressure 160/72 O2 Sat by Pulse 98 Oximetry - Reevaluation(s) Reevaluation #1: 05/08/24 23:45 Medical records reviewed Reevaluation #2: 05/08/24 23:45 Symptoms unchanged Reevaluation #3: 05/09/24 01:51 Patient informed of results questions answered Reevaluation #4: Was pt. sent in by a medical professional or institution (, PA, STORE SALES MANAGER, urgent care, hospital, or long term...) When possible be specific @ -no Did you speak to anyone other than the patient for history (EMS, parent, family, police, friend...)? What history was obtained from this source @ -no Did you review nursing and triage notes (agree or disagree)? Why? @ -agree Are old charts reviewed (outside hosp., previous admission, EMS record, old EKG, old radiological studies, urgent care reports/EKG's, long term records)? Report findings @ -yes Differential Diagnosis (chest pain, altered mental status, abdominal pain women, abdominal pain men, vaginal bleeding, weakness, fever, dyspnea, syncope, headache, dizziness, GI bleed, back pain, seizure, CVA, palpatations, mental health, musculoskeletal)? @ -prior EKG interpreted by me (3pts min.). @ -yes X-rays interpreted by me (1pt min.). @ -no CT interpreted by me (1pt min.). @ -yes negative for acute disease U/S interpreted by me (1pt. min.). @ -no What testing was considered but not performed or refused? (CT, X-rays, U/S, labs)? Why? @ -none What meds were considered but not given or refused? Why? @ -none Did you discuss the management of the patient with other professionals (professionals i.e. DrGlenroy, PA, STORE SALES MANAGER, lab, RT, psych nurse, criminal justice social worker, data services developer, teacher, inspectors and regulatory officers, bilingual patient support caseworker)? Give summary @ -no Was smoking cessation discussed for >3mins.? @ -no Was critical care preformed (if so, how long)? @ -yes31 Were there social determinants of health that impacted care today? How? (Homeles sness, low income, unemployed, alcoholism, drug addiction, transportation, low edu. Level, literacy, decrease access to med. care, fci, rehab)? @ -none Was there de-escalation of care discussed even if they declined (Discuss DNR or withdrawal of care, Hospice)? DNR status @ -no What co-morbidities impacted this encounter? (DM, HTN, Smoking, COPD, CAD, Cancer, CVA, ARF, Chemo, Hep., AIDS, mental health diagnosis, sleep apnea, morbid obesity)? @ -none Was patient admitted / discharged? Hospital course, mention meds given and route, prescriptions, significant lab abnormalities, going to OR and other pertinent info. @ - 88 female to the ER for evaluation of dizziness nausea vomiting persistent vomiting here in the ER, patient has severe hyponatremia with recent head injury. Patient will be admitted for further evaluation and management Admitted Undiagnosed new problem with uncertain prognosis? @ -no Drug Therapy requiring intensive monitoring for toxicity (Heparin, Nitro, Insulin, Cardizem)? @ -no Were any procedures done? @ -no Diagnosis/symptom? @ -Hyponatremia Acute, or Chronic, or Acute on Chronic? @ -Acute Uncomplicated (without systemic symptoms) or Complicated (systemic symptoms)? @ -Complicated Side effects of treatment? @ -no Exacerbation, Progression, or Severe Exacerbation? @ -exacerbation Poses a threat to life or bodily function? How? (Chest pain, [place], DE, pneumonia, PE, COPD, DKA, ARF, appy, cholecystitis, CVA, Diverticulitis, Homicidal, Suicidal, threat to staff... and all critical care pts) @ -yes extremes of age Reevaluation #5: Differential Weakness: Hypoglycemia, shock, sepsis, hyponatremia, anemia, infection, DE, ETOH, adverse medicine reaction, overdose, stroke, this is not meant to be an all-inclusive list. - Consultations Consultation #1: With Dr. Lee who agrees to admit this patient EKG Findings - EKG Comments: EKG Findings:: EKG is sinus 71 [place] 212 QRS 93 QTc 425 - EKG Results: EKG: interpreted by [facility] Medical Decision Making - Medical Decision Making 88 female to the ER for evaluation of dizziness nausea vomiting persistent vomiting here in the ER, patient has severe hyponatremia with recent head injury. Patient will be admitted for further evaluation and management - Lab Data Result diagrams: 05/10/24 07:08 05/10/24 07:08 Lab Results 05/09/24 05/09/24 05/09/24 Range/Units 00:15 00:15 00:15 WBC 9.9 (3.8-10.6) k/uL RBC 3.92 (3.80-5.40) m/uL Hgb 12.3 (11.4-16.0) gm/dL Hct 35.6 (34.0-46.0) % MCV 91.0 (80.0-100.0) fL MCH 31.3 (25.0-35.0) pg MCHC 34.4 (31.0-37.0) g/dL RDW 13.2 (11.5-15.5) % Plt Count 182 (150-450) k/uL MPV 9.7 Neutrophils % 81 % Lymphocytes % 7 % Monocytes % 8 % Eosinophils % 0 % Basophils % 0 % Neutrophils # 8.1 H (1.3-7.7) k/uL Lymphocytes # 0.7 L (1.0-4.8) k/uL Monocytes # 0.8 (0-1.0) k/uL Eosinophils # 0.0 (0-0.7) k/uL Basophils # 0.0 (0-0.2) k/uL PT 10.2 (10.0-12.5) sec INR 0.9 (<1.2) APTT 24.9 (22.0-30.0) sec Sodium (137-145) mmol/L Potassium (3.5-5.1) mmol/L Chloride (98-107) mmol/L Carbon Dioxide (22-30) mmol/L Anion Gap mmol/L BUN (7-17) mg/dL Creatinine (0.52-1.04) mg/dL Est GFR (CKD-EPI)AfAm (>60 ml/min/1.73 sqM) Est GFR (CKD-EPI)NonAf (>60 ml/min/1.73 sqM) Glucose (74-99) mg/dL Plasma Lactic Acid [place] (0.7-2.0) mmol/L Calcium (8.4-10.2) mg/dL Phosphorus (2.5-4.5) mg/dL Magnesium (1.6-2.3) mg/dL Total Bilirubin (0.2-1.3) mg/dL AST (14-36) U/L ALT (4-34) U/L Alkaline Phosphatase (38-126) U/L Troponin I (0.000-0.034) ng/mL NT-Pro-B Natriuret Pep pg/mL Total Protein (6.3-8.2) g/dL Albumin (3.5-5.0) g/dL Urine Color Colorless Urine Appearance Clear (Clear) Urine pH 7.0 (5.0-8.0) Ur Specific [place] 1.009 (1.001-1.035) Urine Protein Negative (Negative) Urine Glucose (UA) Negative (Negative) Urine Ketones Negative (Negative) Urine Blood Negative (Negative) Urine Nitrite Negative (Negative) Urine Bilirubin Negative (Negative) Urine Urobilinogen <2.0 (<2.0) mg/dL Ur Leukocyte Esterase Negative (Negative) 05/09/24 05/09/24 05/09/24 Range/Units 00:15 00:15 00:15 WBC (3.8-10.6) k/uL RBC (3.80-5.40) m/uL Hgb (11.4-16.0) gm/dL Hct (34.0-46.0) % MCV (80.0-100.0) fL MCH (25.0-35.0) pg MCHC (31.0-37.0) g/dL RDW (11.5-15.5) % Plt Count (150-450) k/uL MPV Neutrophils % % Lymphocytes % % Monocytes % % Eosinophils % % Basophils % % Neutrophils # (1.3-7.7) k/uL Lymphocytes # (1.0-4.8) k/uL Monocytes # (0-1.0) k/uL Eosinophils # (0-0.7) k/uL Basophils # (0-0.2) k/uL PT (10.0-12.5) sec INR (<1.2) APTT (22.0-30.0) sec Sodium 117 L* (137-145) mmol/L Potassium 4.5 (3.5-5.1) mmol/L Chloride 92 L (98-107) mmol/L Carbon Dioxide 19 L (22-30) mmol/L Anion Gap 6 mmol/L BUN 20 H (7-17) mg/dL Creatinine 0.87 (0.52-1.04) mg/dL Est GFR (CKD-EPI)AfAm 69 (>60 ml/min/1.73 sqM) Est GFR (CKD-EPI)NonAf 60 (>60 ml/min/1.73 sqM) Glucose 107 H (74-99) mg/dL Plasma Lactic Acid [place] 1.1 (0.7-2.0) mmol/L Calcium 8.7 (8.4-10.2) mg/dL Phosphorus 2.5 (2.5-4.5) mg/dL Magnesium 1.7 (1.6-2.3) mg/dL Total Bilirubin 0.9 (0.2-1.3) mg/dL AST 34 (14-36) U/L ALT 19 (4-34) U/L Alkaline Phosphatase 81 (38-126) U/L Troponin I <0.012 (0.000-0.034) ng/mL NT-Pro-B Natriuret Pep 217 pg/mL Total Protein 6.4 (6.3-8.2) g/dL Albumin 4.0 (3.5-5.0) g/dL Urine Color Urine Appearance (Clear) Urine pH (5.0-8.0) Ur Specific [place] (1.001-1.035) Urine Protein (Negative) Urine Glucose (UA) (Negative) Urine Ketones (Negative) Urine Blood (Negative) Urine Nitrite (Negative) Urine Bilirubin (Negative) Urine Urobilinogen (<2.0) mg/dL Ur Leukocyte Esterase (Negative) - EKG Data -: EKG Interpreted by Me - Radiology Data Radiology results: report reviewed (CT brain negative for acute disease, CT abdomen pelvis negative for acute disease), image reviewed Critical Care Time Critical Care Time: Yes Total Critical Care Time: 31 Disposition Clinical Impression: Hyponatremia, Dizziness, Weakness, Dehydration Disposition: ADMITTED IP TO THIS [facility] Condition: Fair Is patient prescribed a controlled substance at d/c from ED?: No
[2024-05-09] MEDS: SODIUM CHLORIDE 0.9% 1,000 ML IV STA (00:21)
[2024-05-09] MEDS: ONDANSETRON 4 MG/2 ML VIAL IVP STA (00:21)
[2024-05-09] MEDS: MORPHINE SULFATE 4 MG/ML SYRINGE IV STA (00:22)
[2024-05-09 00:40] LABS: ALT 19 U/L (4-34); AST 34 U/L (14-36); African American GFR (CKD) 69 (>60 ml/min/1.73 sqM); Alkaline Phosphatase 81 U/L (38-126); Anion Gap 6 mmol/L; Blood Urea Nitrogen 20 mg/dL (7-17); Calcium 8.7 mg/dL (8.4-10.2); Carbon Dioxide 19 mmol/L (22-30); Chloride 92 mmol/L (98-107); Glucose 107 mg/dL (74-99); Magnesium 1.7 mg/dL (1.6-2.3); Non-African American GFR(CKD) 60 (>60 ml/min/1.73 sqM); Phosphorus 2.5 mg/dL (2.5-4.5); Potassium 4.5 mmol/L (3.5-5.1); Total Bilirubin 0.9 mg/dL (0.2-1.3); Total Protein 6.4 g/dL (6.3-8.2)
[2024-05-09 00:49] LABS: NT-Pro-B-Type Natriuretic Pept 217 pg/mL
[2024-05-09] MEDS: HYDROmorphone 0.5 MG/0.5 ML SYRINGE IVP STA (00:51)
[2024-05-09] MEDS: LORazepam 2 MG/ML INJ IV STA (00:52)
[2024-05-09 00:53] LABS: Sodium 117 mmol/L (137-145)
[2024-05-09 01:03] LABS: INR 0.9 (<1.2); Partial Thromboplastin Time 24.9 sec (22.0-30.0); Prothrombin Time 10.2 sec (10.0-12.5)
--- NOTE | 2024-05-09 01:03 | CT ---
EXAM: CT Head Without Intravenous Contrast CLINICAL HISTORY: dizzy TECHNIQUE: Axial computed tomography images of the head/brain without intravenous contrast. CTDI is 49.2 mGy and DLP is 1134.6 mGy-cm. This CT exam was performed using one or more of the following dose reduction techniques: automated exposure control, adjustment of the mA and/or kV according to patient size, and/or use of iterative reconstruction technique. COMPARISON: No relevant prior studies available. FINDINGS: Brain: Unremarkable. No acute intracranial hemorrhage, edema or abnormal mass-effect. Ventricles: Unremarkable. No ventriculomegaly. Bones/joints: Unremarkable. No acute fracture. Soft tissues: Left parietal scalp laceration with skin osmani. Sinuses: Unremarkable as visualized. No acute sinusitis. Mastoid air cells: Unremarkable as visualized. No mastoid effusion. IMPRESSION: No fracture. No acute intracranial finding.
--- NOTE | 2024-05-09 01:17 | CT ---
EXAM: CT Abdomen and Pelvis Without Intravenous Contrast CLINICAL HISTORY: pain TECHNIQUE: Axial computed tomography images of the abdomen and pelvis without intravenous contrast. CTDI is 9.6 mGy and DLP is 544.8 mGy-cm. This CT exam was performed using one or more of the following dose reduction techniques: automated exposure control, adjustment of the mA and/or kV according to patient size, and/or use of iterative reconstruction technique. COMPARISON: April 07, 2023 FINDINGS: Lung bases: Appearance of atelectasis in the left lung base. ABDOMEN: Liver: Unremarkable. Gallbladder and bile ducts: Cholecystectomy. No ductal dilation. Pancreas: Unremarkable. No ductal dilation. Spleen: Unremarkable. No splenomegaly. Adrenals: Unremarkable. No mass. Kidneys and ureters: Stable nonobstructing 5-6 mm stone in the lower pole of the left kidney. The kidneys are otherwise unremarkable. Stomach and bowel: Generalized increase in stool throughout much of the colon. The rectum is no longer distended with stool. Diverticulosis without diverticulitis. PELVIS: Appendix: No findings to suggest acute appendicitis. Bladder: Unremarkable. No stones. Subperitoneal space: Persistent diffuse perirectal edema. ABDOMEN and PELVIS: Intraperitoneal space: Unremarkable. No free air. No significant fluid collection. Bones/joints: No acute findings. Soft tissues: See above. Vasculature: Unremarkable. No abdominal aortic aneurysm. Lymph nodes: Unremarkable. No enlarged lymph nodes. IMPRESSION: No acute findings in the abdomen or pelvis.
[2024-05-09 01:26] LABS: Basophils % (A) 0 %; Eosinophils % (A) 0 %; HCT 35.6 % (34.0-46.0); HGB 12.3 gm/dL (11.4-16.0); Lymphocytes # (A) 0.7 k/uL (1.0-4.8); Lymphocytes % (A) 7 %; MCH 31.3 pg (25.0-35.0); MCHC 34.4 g/dL (31.0-37.0); Mean Platelet Volume 9.7; Monocytes # (A) 0.8 k/uL (0-1.0); Monocytes % (A) 8 %; Neutrophils # (A) 8.1 k/uL (1.3-7.7); Neutrophils % (A) 81 %; Platelet Count 182 k/uL (150-450); RBC 3.92 m/uL (3.80-5.40); RDW 13.2 % (11.5-15.5); WBC 9.9 k/uL (3.8-10.6)
[2024-05-09] MEDS ORDERED: NALOXONE 0.4 MG/ML 1 ML VIAL IV PRN (01:47)
[2024-05-09 02:19] LABS: Appearance,Urine Clear (Clear); Bilirubin,Urine Negative (Negative); Blood,Urine Negative (Negative); Color,Urine Colorless; Glucose,Urine (UA) Negative (Negative); Ketones,Urine Negative (Negative); Leukocyte Esterase,Urine Negative (Negative); Nitrite,Urine Negative (Negative); Protein,Urine Negative (Negative); Specific Gravity,Urine 1.009 (1.001-1.035); Urobilinogen,Urine <2.0 mg/dL (<2.0)
[2024-05-09 09:15] LABS: African American GFR (CKD) 71 (>60 ml/min/1.73 sqM); Anion Gap 7 mmol/L; Blood Urea Nitrogen 14 mg/dL (7-17); Calcium 8.5 mg/dL (8.4-10.2); Carbon Dioxide 24 mmol/L (22-30); Chloride 90 mmol/L (98-107); Glucose 98 mg/dL (74-99); Magnesium 1.8 mg/dL (1.6-2.3); Non-African American GFR(CKD) 62 (>60 ml/min/1.73 sqM); Potassium 4.6 mmol/L (3.5-5.1); Sodium 121 mmol/L (137-145)
--- NOTE | 2024-05-09 10:31 | P.NPCON ---
History of Present Illness - Reason for Consult hyponatremia - History of Present Illness Reason for consultation: Hyponatremia History of present illness: Patient is a 88-year-old female seen in renal consultation for hyponatremia. Patient sodium level dated May 09 12:15 AM was 117 and improved to 121 at 7 AM this morning. Patient came to the hospital due to nausea vomiting as well as diarrhea for 1 day duration. Patient states she has history of vertigo and attributes her symptoms due to this. She was taking hydrochlorothiazide as well as triamterene outpatient. She also admits to drinking quite a bit of water to keep yourself hydrated. She denies personal history of malignancy. Denies gross hematuria or dysuria. Denies chest pain or shortness of breath. Hemodynamically stable. She received a liter bolus of normal saline on admission and is currently not on any maintenance fluids. Vital signs are stable. General: No acute distress. HEENT: Head exam is unremarkable. LUNGS: No audible rhonchi or wheezes. HEART: Rate and Rhythm are regular. ABDOMEN: Nontender. EXTREMITITES: No edema. 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,IBS History of Any Multi-Drug Resistant Organisms: None Reported Past Surgical History: Cholecystectomy, Ear Surgery Additional Past Surgical History / Comment(s): james eyes, glaucoma procedures Past Anesthesia/Blood Transfusion Reactions: Motion Sickness, Postoperative Nausea & Vomiting (PONV) Past Psychological History: No Psychological Hx Reported Smoking Status: Former smoker Past Alcohol Use History: None Reported Past Drug Use History: None Reported - Past Family History Mother Family Medical History: Cancer Additional Family Medical History / Comment(s): lung Father Family Medical History: Cancer Additional Family Medical History / Comment(s): sinuses Medications and Allergies Home Medications Medication Instructions Recorded Confirmed Type fluocinolone acetonide oiL 3 - 5 drops BOTH EARS HS PRN 07/06/20 05/09/24 History [fluocinolone acetonide oiL 0.01% (Otic)] Ipratropium [place] 0.06%Nasal 2 spr EA NOSTRIL BID PRN 11/03/21 05/09/24 History [Atrovent Nasal 0.06%] Triamterene-Hctz 37.5-25Mg 1 tab PO Q48H 11/03/21 05/09/24 History [Maxzide 37.5-25] Verapamil HCl [Verapamil Sr] 120 mg PO DAILY 11/03/21 05/09/24 History cycloSPORINE [Restasis] 1 drop BOTH EYES BID 11/03/21 05/09/24 History Dupilumab [Dupixent Pen] 300 mg SQ Q14D 04/08/23 05/09/24 History Levothyroxine Sodium [Synthroid] 25 mcg PO DAILY 04/08/23 05/09/24 History Doxycycline Monohydrate [Monodox] 100 mg PO DIRECTED 05/01/24 05/09/24 History Fluocinonide 0.05% Solution 1 applic TOPICAL HS PRN 05/01/24 05/09/24 History Fluticasone Nasal [place] [Flonase 1 - 2 spr EA NOSTRIL DIRECTED 05/01/24 05/09/24 History Nasal [place]] PRN Valsartan 320 mg PO DAILY 05/01/24 05/09/24 History hydrALAZINE HCL [Apresoline] 25 mg PO TID-W/MEALS 05/01/24 05/09/24 History Fexofenadine/Pseudoephedrine 1 tab PO DAILY PRN 05/09/24 05/09/24 History [Katlyn-D 12 Hour Tablet] Montelukast [Singulair] 10 mg PO HS 05/09/24 05/09/24 History Allergies Allergy/AdvReac Type Severity Reaction Status Date / Time Penicillins Allergy Rash/Hives Verified 05/09/24 09:45 alendronate sodium AdvReac Unknown Verified 05/09/24 09:45 [From Fosamax] caffeine AdvReac Nausea & Verified 05/09/24 09:45 Vomiting codeine AdvReac Unknown Verified 05/09/24 09:45 fentanyl AdvReac Nausea & Verified 05/09/24 09:45 Vomiting midazolam [From Versed] AdvReac Nausea & Verified 05/09/24 09:45 Vomiting risperidone AdvReac Unknown Verified 05/09/24 09:45 Physical Exam Vitals: Vital Signs Temp Pulse Resp BP Pulse Ox 05/09/24 08:44 94 L 05/09/24 08:31 66 12 150/69 97 05/09/24 06:00 67 16 148/77 97 05/09/24 04:24 66 16 148/82 98 05/09/24 03:35 68 16 146/72 99 05/08/24 23:41 99.1 F 69 22 199/93 98 Intake and Output 05/08/24 05/09/24 05/09/24 22:59 06:59 14:59 Output Total 1700 Balance -1700 Output: Urine 1700 Other: Weight 58.967 kg Results - Lab Results Most recent lab results Calcium 8.5 mg/dL (8.4-10.2) 05/09/24 06:53 Phosphorus 2.5 mg/dL (2.5-4.5) 05/09/24 00:15 Magnesium 1.8 mg/dL (1.6-2.3) 05/09/24 06:53 05/09/24 00:15 05/09/24 06:53 Assessment and Plan Plan: Assessment: 1. Hypovolemic hyponatremia improved with fluid bolus. Further worsened with the use of thiazide diuretic. Sodium level 117 on admission and 121 this morning. 2. Benign hypertension. 3. History of vertigo. Plan: Start normal saline at 60 cc an hour. 1500 cc fluid restriction. Encouraged oral intake. Follow-up urine studies. Follow-up TSH. Continue to hold diuretics. Resume home dose hydralazine. CT of the abdomen pelvis noted to be negative. Repeat sodium level this afternoon. Thank you for the consultation. I will continue to follow the patient with you during her hospital stay.
[2024-05-09] MEDS: SODIUM CHLORIDE 0.9% 1,000 ML IV SCH (11:38)
[2024-05-09] MEDS: hydrALAZINE HCL 25 MG TAB PO SCH (11:38)
[2024-05-09] MEDS: DEXTROSE 5% IN WATER 1,000 ML IV ONE (17:43)
--- NOTE | 2024-05-09 18:52 | P.HPIM ---
History of Present Illness H&P Date: 05/09/24 HISTORY OF PRESENT ILLNESS: 88-year-old new patient to our practice has been seen for the last few months with known history of hypertension, hypothyroidism, arrhythmia, chronic allergy, chronic edema, chronic dizziness with 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 She is presented to the emergency department on May 09 complaining of nausea and vomiting as well as diarrhea for 1 day with severe generalized fatigue tiredness and overall not feeling well she admitted that she been drinking so much water to keep yourself hydrated she become quite bit symptomatic with slight altered mental status with fatigue tiredness and generalized symptoms ended up coming to the emergency department shortly after midnight on May 09, 2024 where was seen and evaluated surprisingly her sodium came at 117 with chloride at 92 carbon dioxide 19 bun 20 with creatinine 0.87 her GFR at 60 blood sugar was mildly elevated magnesium was 1.7 normal troponin normal proBNP normal thyroid and urine test. Patient was diagnosed with severe hyponatremia started on fluid restriction initially treat her nausea and vomiting gentle hydration and admit patient to the hospital for the above problem. She continued to have slight lightheadedness and dizziness and claimed she already have an appointment to see Dr. Kelley at the [facility] for her chronic vertigo also had an appointment to see her neurologist for her dizziness symptoms. REVIEW OF SYSTEMS: CONSTITUTIONAL: Well-developed no acute respiratory distress. EYES: No icterus sclerae, no conjunctivitis. EARS, NOSE, MOUTH, THROAT, and FACE: No sore throat, lymphadenopathy, carotid bruits or deformity. RESPIRATORY: No SOB cough or wheezes. CARDIOVASCULAR: No CP, Palpitation, PND, Orthopnea, or angina. GASTROINTESTINAL: Slight abdominal discomfort with nausea vomiting diarrhea no constipation no GI bleed or distention. GENITOURINARY: Polyuria nocturia no hematuria mild incontinence. Generalized muscle and joint pain. INTEGUMENT/BREAST: Negative for any muscular injury with mild osteoarthritis.. HEMATOLOGIC/LYMPHATIC: Negative for bleed or purpura. MUSCULOSKELTAL: Generalized muscle and joint pain. NEURLOGICAL: Positive for lightheadedness, dizziness, severe vertigo as well. BEHAVIORAL/PSYCH: Negative. ENDOCRINE: Negative. PHYSICAL EXAMINATION: General Appearance: Alert, cooperative, positive dizziness and lightheadedness. Neck HEENT: Supple, no lymphadenopathy, no thyroid enlargement, no carotid bruits. Lungs: Clear to auscultation without crackles or wheezes no rhonchi, no deformi ty. Chest Wall: Chest wall normal expansion with deep inspiration no tenderness and no deformity was found on exam, no costochondral pain or discomfort. Heart: Regular rate and rhythm, S1, S2 normal, no murmur, rub or gallop. Back: Symmetric, no curvature, ROM normal, no CVA tenderness. Abdomen: Soft, non-tender, bowel sounds active all four quadrants, no masses, no organomegaly. Extremities: Extremities normal, atraumatic, no cyanosis or edema. Pulses: 2+ and symmetric. Skin: Skin color, texture, tugor normal, no rashes or lesions. Neurologic: Alert oriented x 3 cranial nerves II 12 intact positive generalized fatigue tiredness and weakness no focal deficit. ASSESSMENT AND PLAN: _Acute severe hyponatremia hypovolemic mostly with sodium of 117 slightly low chloride, will continue gentle hydration fluid restriction at 1500 cc and encourage oral intake nephrology consultation was done watch for any complication related to hyponatremia including seizure. _Intractable nausea vomiting: Will exclude the possibility of central nervous system specially with the recent head trauma, CAT scan of the brain will be done also CAT scan of the abdomen will be done to exclude any possibility of existing problem. They were all done and were negative. _Severe dizziness and vertigo: Has been seen neurology and ENT continue to follow current recommendation. _History of arrhythmia: With no flareup lately has been doing well. _Hypertension: Has been on hydralazine 25 mg 3 times a day with meals along with verapamil SR 120 mg a day still on valsartan 320 mg daily continue medication. _Hypothyroidism: Remain on levothyroxine 25 mcg daily resume medication. Chron ic allergy: Has been on _Fexofenadine along with Flonase nasal spray. Still on Singulair as well. _GI prophylaxis: Patient be on Pepcid 20 mg daily. _DVT prophylaxis: Early mobilization and knee-high EVA hose. CODE STATUS: Full code. Admit patient to the inpatient service for more than 2 night stay. 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,IBS History of Any Multi-Drug Resistant Organisms: None Reported Past Surgical History: Cholecystectomy, Ear Surgery Additional Past Surgical History / Comment(s): james eyes, glaucoma procedures Past Anesthesia/Blood Transfusion Reactions: Motion Sickness, Postoperative Nausea & Vomiting (PONV) Past Psychological History: No Psychological Hx Reported Smoking Status: Former smoker Past Alcohol Use History: None Reported Past Drug Use History: None Reported - Past Family History Mother Family Medical History: Cancer Additional Family Medical History / Comment(s): lung Father Family Medical History: Cancer Additional Family Medical History / Comment(s): sinuses Medications and Allergies Home Medications Medication Instructions Recorded Confirmed Type fluocinolone acetonide oiL 3 - 5 drops BOTH EARS HS PRN 07/06/20 05/09/24 History [fluocinolone acetonide oiL 0.01% (Otic)] Ipratropium [place] 0.06%Nasal 2 spr EA NOSTRIL BID PRN 11/03/21 05/09/24 History [Atrovent Nasal 0.06%] Triamterene-Hctz 37.5-25Mg 1 tab PO Q48H 11/03/21 05/09/24 History [Maxzide 37.5-25] Verapamil HCl [Verapamil Sr] 120 mg PO DAILY 11/03/21 05/09/24 History cycloSPORINE [Restasis] 1 drop BOTH EYES BID 11/03/21 05/09/24 History Dupilumab [Dupixent Pen] 300 mg SQ Q14D 04/08/23 05/09/24 History Levothyroxine Sodium [Synthroid] 25 mcg PO DAILY 04/08/23 05/09/24 History Doxycycline Monohydrate [Monodox] 100 mg PO DIRECTED 05/01/24 05/09/24 History Fluocinonide 0.05% Solution 1 applic TOPICAL HS PRN 05/01/24 05/09/24 History Fluticasone Nasal [place] [Flonase 1 - 2 spr EA NOSTRIL DIRECTED 05/01/24 05/09/24 History Nasal [place]] PRN Valsartan 320 mg PO DAILY 05/01/24 05/09/24 History hydrALAZINE HCL [Apresoline] 25 mg PO TID-W/MEALS 05/01/24 05/09/24 History Fexofenadine/Pseudoephedrine 1 tab PO DAILY PRN 05/09/24 05/09/24 History [Katlyn-D 12 Hour Tablet] Montelukast [Singulair] 10 mg PO HS 05/09/24 05/09/24 History Allergies Allergy/AdvReac Type Severity Reaction Status Date / Time Penicillins Allergy Rash/Hives Verified 05/09/24 09:45 alendronate sodium AdvReac Unknown Verified 05/09/24 09:45 [From Fosamax] caffeine AdvReac Nausea & Verified 05/09/24 09:45 Vomiting codeine AdvReac Unknown Verified 05/09/24 09:45 fentanyl AdvReac Nausea & Verified 05/09/24 09:45 Vomiting midazolam [From Versed] AdvReac Nausea & Verified 05/09/24 09:45 Vomiting risperidone AdvReac Unknown Verified 05/09/24 09:45 Physical Exam Vitals: Vital Signs Temp Pulse Resp BP Pulse Ox 05/09/24 11:35 74 18 160/72 98 05/09/24 08:44 94 L 05/09/24 08:31 66 12 150/69 97 05/09/24 06:00 67 16 148/77 97 05/09/24 04:24 66 16 148/82 98 05/09/24 03:35 68 16 146/72 99 05/08/24 23:41 99.1 F 69 22 199/93 98 Intake and Output 05/08/24 05/09/24 05/09/24 22:59 06:59 14:59 Output Total 1700 1200 Balance -1700 -1200 Output: Urine 1700 1200 Other: Weight 58.967 kg Results CBC & Chem 7: 05/09/24 00:15 05/09/24 16:31 Labs: Abnormal Lab Results - Last 24 Hours (Table) 05/09/24 05/09/24 05/09/24 Range/Units 00:15 00:15 06:53 Neutrophils # 8.1 H (1.3-7.7) k/uL Lymphocytes # 0.7 L (1.0-4.8) k/uL Sodium 117 L* 121 L (137-145) mmol/L Chloride 92 L 90 L (98-107) mmol/L Carbon Dioxide 19 L (22-30) mmol/L BUN 20 H (7-17) mg/dL Glucose 107 H (74-99) mg/dL Urine Osmolality (400-1100) mOsm/kg Ur Random Sodium (40-220) mmol/L 05/09/24 05/09/24 Range/Units 06:55 06:55 Neutrophils # (1.3-7.7) k/uL Lymphocytes # (1.0-4.8) k/uL Sodium (137-145) mmol/L Chloride (98-107) mmol/L Carbon Dioxide (22-30) mmol/L BUN (7-17) mg/dL Glucose (74-99) mg/dL Urine Osmolality 98 L (400-1100) mOsm/kg Ur Random Sodium 25 L (40-220) mmol/L
[2024-05-09] MEDS: ACETAMINOPHEN TAB 325 MG TAB PO PRN (21:19)
[2024-05-09] MEDS: ONDANSETRON 4 MG/2 ML VIAL IVP PRN (22:05)
[2024-05-10] MEDS: MORPHINE SULFATE 4 MG/ML SYRINGE IV PRN (03:17)
[2024-05-10] MEDS: MECLIZINE 12.5 MG TAB PO PRN (06:20)
[2024-05-10 07:51] LABS: ALT 215 U/L (4-34); AST 181 U/L (14-36); African American GFR (CKD) 64 (>60 ml/min/1.73 sqM); Alkaline Phosphatase 145 U/L (38-126); Anion Gap 8 mmol/L; Blood Urea Nitrogen 12 mg/dL (7-17); Calcium 9.1 mg/dL (8.4-10.2); Carbon Dioxide 25 mmol/L (22-30); Chloride 92 mmol/L (98-107); Glucose 93 mg/dL (74-99); Non-African American GFR(CKD) 55 (>60 ml/min/1.73 sqM); Phosphorus 3.2 mg/dL (2.5-4.5); Potassium 4.7 mmol/L (3.5-5.1); Sodium 125 mmol/L (137-145); Total Bilirubin 0.7 mg/dL (0.2-1.3); Total Protein 6.6 g/dL (6.3-8.2)
[2024-05-10 08:17] LABS: Basophils % (A) 0 %; Eosinophils # (A) 0.1 k/uL (0-0.7); Eosinophils % (A) 1 %; HCT 42.2 % (34.0-46.0); HGB 14.3 gm/dL (11.4-16.0); Lymphocytes # (A) 0.6 k/uL (1.0-4.8); Lymphocytes % (A) 10 %; MCH 31.5 pg (25.0-35.0); MCV 92.5 fL (80.0-100.0); Mean Platelet Volume 8.6; Monocytes # (A) 0.8 k/uL (0-1.0); Monocytes % (A) 12 %; Neutrophils # (A) 4.6 k/uL (1.3-7.7); Neutrophils % (A) 72 %; Platelet Count 180 k/uL (150-450); RBC 4.56 m/uL (3.80-5.40); RDW 13.3 % (11.5-15.5); WBC 6.4 k/uL (3.8-10.6)
[2024-05-10] MEDS ORDERED: FLUTICASONE NASAL 50MCG/SPRAY 16GM BTL EA NOSTRIL PRN (09:18)
[2024-05-10] MEDS ORDERED: NON FORMULARY DRUG (Fluocinolone Acetonide Oil [Fluocinolone Acetonide Oil 0.01% (Otic)] 2 BOTH EARS PRN (09:18)
[2024-05-10] MEDS ORDERED: IPRATROPIUM BROMIDE 0.06% NASAL SPRAY (15 ML) EA NOSTRIL PRN (09:18)
[2024-05-10] MEDS ORDERED: LORATADINE-PSEUDOEPH 5-120 MG 1 EACH TAB.ER.12H PO PRN (09:18)
[2024-05-10] MEDS ORDERED: BETAMETHASONE DIPROPIONATE 0.05% CREAM 15 GM TUBE TOPICAL PRN (09:18)
[2024-05-10] MEDS: LEVOTHYROXINE 25 MCG TAB PO SCH (11:46)
[2024-05-10] MEDS: SCOPOLAMINE 1 MG/72 HR PATCH TRANSDERM STA (12:15)
--- NOTE | 2024-05-10 12:48 | P.PN ---
Subjective Progress Note Date: 05/10/24 Patient seen in follow-up for hyponatremia. No acute events over night. Was started on D5W due to overcorrection but discontinued this morning. Vital signs are stable. General: No acute distress. HEENT: Head exam is unremarkable. LUNGS: No audible rhonchi or wheezes. HEART: Rate and Rhythm are regular. ABDOMEN: Nontender. EXTREMITIES: No edema. Objective - Vital Signs Vital signs: Vital Signs Temp 98.0 F 05/10/24 03:59 Pulse 74 05/10/24 08:45 Resp 18 05/10/24 08:45 BP 149/76 05/10/24 08:23 Pulse Ox 95 05/10/24 08:23 FiO2 Intake & Output 05/09/24 05/10/24 05/10/24 18:59 06:59 18:59 Intake Total 540 Output Total 1200 600 Balance -660 -600 Weight 58.967 kg Intake: Oral 540 Output: Urine 1200 600 - Labs CBC & Chem 7: 05/10/24 07:08 05/10/24 07:08 Labs: Abnormal Lab Results - Last 24 Hours (Table) 05/09/24 05/09/24 05/09/24 Range/Units 06:53 06:55 06:55 Lymphocytes # (1.0-4.8) k/uL Sodium (137-145) mmol/L Chloride (98-107) mmol/L Osmolality 260 L (275-295) mOsm/kg AST (14-36) U/L ALT (4-34) U/L Alkaline Phosphatase (38-126) U/L Urine Osmolality 98 L (400-1100) mOsm/kg Ur Random Sodium 25 L (40-220) mmol/L 05/09/24 05/09/24 05/10/24 Range/Units 16:31 21:16 07:08 Lymphocytes # 0.6 L (1.0-4.8) k/uL Sodium 127 L 125 L (137-145) mmol/L Chloride (98-107) mmol/L Osmolality (275-295) mOsm/kg AST (14-36) U/L ALT (4-34) U/L Alkaline Phosphatase (38-126) U/L Urine Osmolality (400-1100) mOsm/kg Ur Random Sodium (40-220) mmol/L 05/10/24 Range/Units 07:08 Lymphocytes # (1.0-4.8) k/uL Sodium 125 L (137-145) mmol/L Chloride 92 L (98-107) mmol/L Osmolality (275-295) mOsm/kg AST 181 H (14-36) U/L ALT 215 H (4-34) U/L Alkaline Phosphatase 145 H (38-126) U/L Urine Osmolality (400-1100) mOsm/kg Ur Random Sodium (40-220) mmol/L Assessment and Plan Assessment: 1. 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 Further worsened with the use of thiazide diuretic. Urine sodium 25 and urine osmolality 98. Sodium level 117 on admission and 127 over corrected now 125 this morning. 2. Benign hypertension. 3. History of vertigo. Plan: D/C D5W as sodium level appropriate now. Maintain off IVF for now, should continue to correct on own. 1500 cc fluid restriction. Encouraged protein intake.
--- NOTE | 2024-05-10 17:15 | P.PN ---
Subjective Progress Note Date: 05/10/24 HISTORY OF PRESENT ILLNESS: 88-year-old new patient to our practice has been seen for the last few months with known history of hypertension, hypothyroidism, arrhythmia, chronic allergy, chronic edema, chronic dizziness with 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 She is presented to the emergency department on May 09 complaining of nausea and vomiting as well as diarrhea for 1 day with severe generalized fatigue tiredness and overall not feeling well she admitted that she been drinking so much water to keep yourself hydrated she become quite bit symptomatic with slight altered mental status with fatigue tiredness and generalized symptoms ended up coming to the emergency department shortly after midnight on May 09, 2024 where was seen and evaluated surprisingly her sodium came at 117 with chloride at 92 carbon dioxide 19 bun 20 with creatinine 0.87 her GFR at 60 blood sugar was mildly elevated magnesium was 1.7 normal troponin normal proBNP normal thyroid and urine test. Patient was diagnosed with severe hyponatremia started on fluid restriction initially treat her nausea and vomiting gentle hydration and admit patient to the hospital for the above problem. She continued to have slight lightheadedness and dizziness and claimed she already have an appointment to see Dr. Kelley at the [place] [facility] for her chronic vertigo also had an appointment to see her neurologist for her dizziness symptoms. 05/10/2024: Sodium was improved last night up to 127 and dropped down again to 125 his kidney function is much better but liver enzyme had climb up slightly this morning, CBC was still doing well. Resume all home meds patient blood pressure has been stable and better so far. 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 Continue fluid restriction at 36 ounce and continue to watch patient's sodium at least twice a day. 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 Continue IV hydration orally without IV. REVIEW OF SYSTEMS: CONSTITUTIONAL: Well-developed no acute respiratory distress. EYES: No icterus sclerae, no conjunctivitis. EARS, NOSE, MOUTH, THROAT, and FACE: No sore throat, lymphadenopathy, carotid bruits or deformity. RESPIRATORY: No SOB cough or wheezes. CARDIOVASCULAR: No CP, Palpitation, PND, Orthopnea, or angina. GASTROINTESTINAL: Slight abdominal discomfort with nausea vomiting diarrhea no constipation no GI bleed or distention. GENITOURINARY: Polyuria nocturia no hematuria mild incontinence. Generalized muscle and joint pain. INTEGUMENT/BREAST: Negative for any muscular injury with mild osteoarthritis.. HEMATOLOGIC/LYMPHATIC: Negative for bleed or purpura. MUSCULOSKELTAL: Generalized muscle and joint pain. NEURLOGICAL: Positive for lightheadedness, dizziness, severe vertigo as well. BEHAVIORAL/PSYCH: Negative. ENDOCRINE: Negative. PHYSICAL EXAMINATION: General Appearance: Alert, cooperative, positive dizziness and lightheadedness. Neck HEENT: Supple, no lymphadenopathy, no thyroid enlargement, no carotid bruits. Lungs: Clear to auscultation without crackles or wheezes no rhonchi, no deformity. Chest Wall: Chest wall normal expansion with deep inspiration no tenderness and no deformity was found on exam, no costochondral pain or discomfort. Heart: Regular rate and rhythm, S1, S2 normal, no murmur, rub or gallop. Back: Symmetric, no curvature, ROM normal, no CVA tenderness. Abdomen: Soft, non-tender, bowel sounds active all four quadrants, no masses, no organomegaly. Extremities: Extremities normal, atraumatic, no cyanosis or edema. Pulses: 2+ and symmetric. Skin: Skin color, texture, tugor normal, no rashes or lesions. Neurologic: Alert oriented x 3 cranial nerves II 12 intact positive generalized fatigue tiredness and weakness no focal deficit. ASSESSMENT AND PLAN: _Acute severe hyponatremia hypovolemic mostly with sodium of 117 slightly low chloride, continue hydration with IV fluid, switch D5 to 0.9 normal saline and continue hydration orally will be more helpful at this point _Intractable nausea vomiting: Not able to tolerate anything today despite being on Zofran and Antivert did not control symptoms will add Transderm scopolamine patch today continue to try again decide Zofran try to control symptoms. _Severe dizziness and vertigo: Has been seen neurology and ENT continue to follow current recommendation. Will try to use trans-Derm scopolamine patch today. _History of arrhythmia: With no flareup lately has been doing well. _Hypertension: Has been on hydralazine 25 mg 3 times a day with meals along with verapamil SR 120 mg a day still on valsartan 320 mg daily continue medication. Resume all home meds and titrate hydralazine if needed. _Hypothyroidism: Remain on levothyroxine 25 mcg daily resume medication. Chronic allergy: Has been on _Fexofenadine along with Flonase nasal spray. Still on Singulair as well. _GI prophylaxis: Patient be on Pepcid 20 mg daily. Discussion: Still severely dizzy having significant intractable nausea and vomiting, remain on hydration sodium still low still seen nephrology will need at least another 24 hours in the hospital. Objective - Vital Signs Vital signs: Vital Signs Temp 98.0 F 05/10/24 03:59 Pulse 74 05/10/24 08:45 Resp 18 05/10/24 08:45 BP 149/76 05/10/24 08:23 Pulse Ox 95 05/10/24 08:23 FiO2 Intake & Output 05/09/24 05/10/24 05/10/24 18:59 06:59 18:59 Intake Total 540 Output Total 1200 600 Balance -660 -600 Weight 58.967 kg Intake: Oral 540 Output: Urine 1200 600 - Labs CBC & Chem 7: 05/10/24 07:08 05/10/24 07:08 Labs: Abnormal Lab Results - Last 24 Hours (Table) 05/09/24 05/09/24 05/09/24 Range/Units 06:53 06:53 06:55 Lymphocytes # (1.0-4.8) k/uL Sodium 121 L (137-145) mmol/L Chloride 90 L (98-107) mmol/L Osmolality 260 L (275-295) mOsm/kg AST (14-36) U/L ALT (4-34) U/L Alkaline Phosphatase (38-126) U/L Urine Osmolality 98 L (400-1100) mOsm/kg Ur Random Sodium (40-220) mmol/L 05/09/24 05/09/24 05/09/24 Range/Units 06:55 16:31 21:16 Lymphocytes # (1.0-4.8) k/uL Sodium 127 L 125 L (137-145) mmol/L Chloride (98-107) mmol/L Osmolality (275-295) mOsm/kg AST (14-36) U/L ALT (4-34) U/L Alkaline Phosphatase (38-126) U/L Urine Osmolality (400-1100) mOsm/kg Ur Random Sodium 25 L (40-220) mmol/L 05/10/24 05/10/24 Range/Units 07:08 07:08 Lymphocytes # 0.6 L (1.0-4.8) k/uL Sodium 125 L (137-145) mmol/L Chloride 92 L (98-107) mmol/L Osmolality (275-295) mOsm/kg AST 181 H (14-36) U/L ALT 215 H (4-34) U/L Alkaline Phosphatase 145 H (38-126) U/L Urine Osmolality (400-1100) mOsm/kg Ur Random Sodium (40-220) mmol/L
[2024-05-10] MEDS: cycloSPORINE 0.05% OPHTH 0.4 ML DROPERETTE BOTH EYES SCH (20:38)
[2024-05-10] MEDS: ALPRAZolam 0.25 MG TAB PO PRN (20:38)
[2024-05-10] MEDS: MONTELUKAST 10 MG TAB PO SCH (20:38)
[2024-05-10 23:46] LABS: Hepatitis A Antibody IgM Nonreactive (Nonreactive); Hepatitis B Core IgM Nonreactive (Nonreactive); Hepatitis B Surface Antigen Nonreactive (Nonreactive); Hepatitis C IgG Antibody Nonreactive (Nonreactive)
[2024-05-11 07:21] LABS: HCT 39.2 % (34.0-46.0); MCH 30.9 pg (25.0-35.0); MCHC 33.2 g/dL (31.0-37.0); MCV 92.9 fL (80.0-100.0); Mean Platelet Volume 7.4; Platelet Count 172 k/uL (150-450); RBC 4.22 m/uL (3.80-5.40); RDW 13.1 % (11.5-15.5); WBC 4.7 k/uL (3.8-10.6)
[2024-05-11 07:37] LABS: ALT 138 U/L (4-34); AST 73 U/L (14-36); African American GFR (CKD) 56 (>60 ml/min/1.73 sqM); Albumin 3.6 g/dL (3.5-5.0); Alkaline Phosphatase 118 U/L (38-126); Anion Gap 5 mmol/L; Blood Urea Nitrogen 14 mg/dL (7-17); Calcium 9.2 mg/dL (8.4-10.2); Carbon Dioxide 27 mmol/L (22-30); Chloride 96 mmol/L (98-107); Glucose 86 mg/dL (74-99); Non-African American GFR(CKD) 48 (>60 ml/min/1.73 sqM); Potassium 4.5 mmol/L (3.5-5.1); Sodium 128 mmol/L (137-145); Total Bilirubin 0.7 mg/dL (0.2-1.3)
[2024-05-11] MEDS: VALSARTAN 160 MG TAB PO SCH (09:05)
[2024-05-11] MEDS: VERAPAMIL SR 120 MG TABLET.ER PO SCH (09:05)
[2024-05-11] MEDS: SODIUM CHLORIDE 0.9% 1,000 ML IV SCH (10:17)
--- NOTE | 2024-05-11 11:30 | P.PN ---
Subjective Progress Note Date: 05/11/24 Patient seen in follow-up for hyponatremia. Had episodes of dizziness. Vital signs are stable. General: No acute distress. HEENT: Head exam is unremarkable. LUNGS: No audible rhonchi or wheezes. HEART: Rate and Rhythm are regular. ABDOMEN: Nontender. EXTREMITIES: No edema. Objective - Vital Signs Vital signs: Vital Signs Temp 98.2 F 05/11/24 04:00 Pulse 85 05/11/24 09:25 Resp 18 05/11/24 09:25 BP 131/69 05/11/24 09:00 Pulse Ox 97 05/11/24 09:00 FiO2 Intake & Output 05/10/24 05/11/24 05/11/24 18:59 06:59 18:59 Intake Total 35 Output Total 950 800 Balance 35 -950 -800 Weight 65.5 kg Intake: Oral 35 Output: Urine 950 800 Other: # Voids 0 # Bowel Movements 0 - Labs CBC & Chem 7: 05/11/24 06:55 05/11/24 06:55 Labs: Abnormal Lab Results - Last 24 Hours (Table) 05/11/24 Range/Units 06:55 Sodium 128 L (137-145) mmol/L Chloride 96 L (98-107) mmol/L AST 73 H (14-36) U/L ALT 138 H (4-34) U/L Total Protein 6.0 L (6.3-8.2) g/dL Assessment and Plan Assessment: 1. 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 Further worsened with the use of thiazide diuretic. Urine sodium 25 and urine osmolality 98. Sodium level 117 on admission and 128 now. 2. Benign hypertension. 3. History of vertigo. Plan: Restart gentle IVF 75cc/hr 1500 cc fluid restriction. Encouraged protein intake.
--- NOTE | 2024-05-11 11:45 | XR ---
EXAMINATION TYPE: XR chest 1V portable DATE OF EXAM: 05/11/2024 COMPARISON: 05/01/2024 HISTORY: Aspiration TECHNIQUE: Single frontal view of the chest is obtained. FINDINGS: There is mild interstitial prominence likely reflecting mild chronic interstitial changes. There is no airspace consolidation. There is no pleural effusion or pneumothorax. The heart and pulmonary vasculature are normal. The oss eous structures are intact IMPRESSION: 1. No acute cardiopulmonary disease. 2. Mild chronic interstitial changes.. [facility], Workstation: ARLIN 05/11/2024 11:43 AM
[2024-05-11] MEDS: HYDROmorphone 0.5 MG/0.5 ML SYRINGE IVP PRN (13:57)
--- NOTE | 2024-05-11 14:52 | P.CNNES ---
History of Present Illness Consult date: 05/11/24 Requesting physician: Federico Lee Reason for Consult: dizziness History of Present Illness: This is a 82-year-old woman with history of vertigo, hypertension who presented emergency department because of dizziness that is worse than baseline with nausea and vomiting. Patient's daughter is at bedside who helps with the h istory. According to the daughter she has been having worsening dizziness since recent head trauma on May 01, 2024. According to the daughter patient had a mechanical fall in which she slipped on fluid on the floor and her head hit the concrete but did not lose any consciousness. It seems that she was working outside working on chemicals. As a result of the head trauma she has been having worsening dizziness with nausea and vomiting. She feels the dizziness is worse with movement. Denies of any focal weakness or numbness. Seems that the patient had a scopolamine patch and the daughter feels today is better compared to yesterday. She does have underlying history of vertigo and that she has been evaluated by multiple specialist as an outpatient. No history of stroke in the past. Denies any focal weakness numbness visual disturbance. Some of the workup during this hospital visit consisted of: AST is 181 ALT is 215 TSH is 3.210. Calcium is 8.5. Phosphorus is 3.2, sodium is close 117 and most recent is 128 CT of the head is reported as no fracture. No acute intracranial finding. I personally reviewed the CT and agree there is no acute or subacute ischemia. Review of Systems As per HPI. 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,IBS History of Any Multi-Drug Resistant Organisms: None Reported Past Surgical History: Cholecystectomy, Ear Surgery Additional Past Surgical History / Comment(s): james eyes, glaucoma procedures Past Anesthesia/Blood Transfusion Reactions: Motion Sickness, Postoperative Nausea & Vomiting (PONV) Past Psychological History: No Psychological Hx Reported Smoking Status: Former smoker Past Alcohol Use History: None Reported Past Drug Use History: None Reported - Past Family History Mother Family Medical History: Cancer Additional Family Medical History / Comment(s): lung Father Family Medical History: Cancer Additional Family Medical History / Comment(s): sinuses Medications and Allergies Home Medications Medication Instructions Recorded Confirmed Type fluocinolone acetonide oiL 3 - 5 drops BOTH EARS HS PRN 07/06/20 05/09/24 History [fluocinolone acetonide oiL 0.01% (Otic)] Ipratropium Alder 0.06%Nasal 2 spr EA NOSTRIL BID PRN 11/03/21 05/09/24 History [Atrovent Nasal 0.06%] Triamterene-Hctz 37.5-25Mg 1 tab PO Q48H 11/03/21 05/09/24 History [Maxzide 37.5-25] Verapamil HCl [Verapamil Sr] 120 mg PO DAILY 11/03/21 05/09/24 History cycloSPORINE [Restasis] 1 drop BOTH EYES BID 11/03/21 05/09/24 History Dupilumab [Dupixent Pen] 300 mg SQ Q14D 04/08/23 05/09/24 History Levothyroxine Sodium [Synthroid] 25 mcg PO DAILY 04/08/23 05/09/24 History Doxycycline Monohydrate [Monodox] 100 mg PO DIRECTED 05/01/24 05/09/24 History Fluocinonide 0.05% Solution 1 applic TOPICAL HS PRN 05/01/24 05/09/24 History Fluticasone Nasal [place] [Flonase 1 - 2 spr EA NOSTRIL DIRECTED 05/01/24 05/09/24 History Nasal [place]] PRN Valsartan 320 mg PO DAILY 05/01/24 05/09/24 History hydrALAZINE HCL [Apresoline] 25 mg PO TID-W/MEALS 05/01/24 05/09/24 History Fexofenadine/Pseudoephedrine 1 tab PO DAILY PRN 05/09/24 05/09/24 History [Katlyn-D 12 Hour Tablet] Montelukast [Singulair] 10 mg PO HS 05/09/24 05/09/24 History Allergies Allergy/AdvReac Type Severity Reaction Status Date / Time Penicillins Allergy Rash/Hives Verified 05/09/24 09:45 alendronate sodium AdvReac Unknown Verified 05/09/24 09:45 [From Fosamax] caffeine AdvReac Nausea & Verified 05/09/24 09:45 Vomiting codeine AdvReac Unknown Verified 05/09/24 09:45 fentanyl AdvReac Nausea & Verified 05/09/24 09:45 Vomiting midazolam [From Versed] AdvReac Nausea & Verified 05/09/24 09:45 Vomiting risperidone AdvReac Unknown Verified 05/09/24 09:45 Physical Examination - Vital Signs Vital Signs: Vital Signs Temp Pulse Resp BP Pulse Ox 05/11/24 13:30 85 18 05/11/24 11:41 85 18 127/58 96 05/11/24 09:25 85 18 05/11/24 09:00 85 18 131/69 97 05/11/24 07:51 91 L 05/11/24 04:00 98.2 F 74 18 117/72 96 05/11/24 01:35 18 05/11/24 00:00 78 18 135/69 98 05/10/24 20:00 98.1 F 88 18 128/67 97 05/10/24 16:00 84 18 166/71 98 Intake and Output 05/10/24 05/11/24 05/11/24 22:59 06:59 14:59 Intake Total 25 240 Output Total 950 800 Balance 25 -950 -560 Intake: Oral 25 240 Output: Urine 950 800 Other: # Voids 0 # Bowel Movements 0 1 Weight 65.5 kg GENERAL: The patient is lying in bed and is not in acute distress. NEUROLOGICAL: Exam was assisted by her daughter since patient is severely hard of hearing. Higher mental function: The patient is awake, alert, oriented to self, place and time. Patient is following commands. No aphasia and no neglect. Cranial nerves: The pupils are round, equal and reactive to light and accommodation. Visual glaser are full to confrontation throughout. Extraocular movement is intact and has mild rotatroy nystagmus looking to right. Facial sensation is normal to touch throughout. The facial strength is normal throughout. Hearing is severely bilaterally to hand rub. Tongue is midline and moved [id number] without any difficulty. No dysarthria is noted. Shoulder shrug is normal bilaterally. Motor: The strength is 5 over 5 throughout. Normal tone and bulk. Cerebellum: Normal finger to nose bilaterally. Sensation: Sensation is normal to touch throughout. Reflexes (right/left): 2+ throughout. Plantars are mute bilaterally. Results - Laboratory Findings CBC and BMP: 05/11/24 06:55 05/11/24 06:55 Abnormal Lab Findings: Abnormal Labs 05/09/24 05/09/24 05/09/24 00:15 00:15 06:53 Neutrophils # 8.1 H Lymphocytes # 0.7 L Sodium 117 L* Chloride 92 L Carbon Dioxide 19 L BUN 20 H Glucose 107 H Osmolality 260 L AST ALT Alkaline Phosphatase Total Protein Urine Osmolality Ur Random Sodium 05/09/24 05/09/24 05/09/24 06:53 06:55 06:55 Neutrophils # Lymphocytes # Sodium 121 L Chloride 90 L Carbon Dioxide BUN Glucose Osmolality AST ALT Alkaline Phosphatase Total Protein Urine Osmolality 98 L Ur Random Sodium 25 L 05/09/24 05/09/24 05/10/24 16:31 21:16 07:08 Neutrophils # Lymphocytes # 0.6 L Sodium 127 L 125 L Chloride Carbon Dioxide BUN Glucose Osmolality AST ALT Alkaline Phosphatase Total Protein Urine Osmolality Ur Random Sodium 05/10/24 05/11/24 07:08 06:55 Neutrophils # Lymphocytes # Sodium 125 L 128 L Chloride 92 L 96 L Carbon Dioxide BUN Glucose Osmolality AST 181 H 73 H ALT 215 H 138 H Alkaline Phosphatase 145 H Total Protein 6.0 L Urine Osmolality Ur Random Sodium Assessment and Plan Assessment: This is an 88-year-old woman with history of hypertension, vertigo who had a mechanical fall on May 01, 2024 and that she slipped and hit her head but denies any loss of consciousness. Ever since the head trauma she has been having severe dizziness position and had nausea vomiting. Acute hyponatremia 117. Today she feels her dizziness is slightly better compared to initial presentation after scopolamine patch Acute on chronic vertigo in addition with nausea and vomiting. 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 Her sodium was as low as 117 and currently is 128 Recent head concussion due to recent fall History of vertigo History of hypertension Severe hard of hearing Plan: I ordered MRI of the brain with and without Consulted PT and OT for gait training Patient has a scopolamine patch. She is on meclizine 12.5 mg 1 tablet 4 times daily as needed and I change it to scheduled for 7 days and after that as needed. If workup is negative and patient continues to have symptoms then recommend the patient to follow-up with ENT as an outpatient. Nephrology is on board Will defer the rest of the medical management to primary and other specialist Plan discussed with the patient, her daughter was at bedside Thank for the consultation. Dr. Lomas will resume neurology service tomorrow A.M. Time with Patient: Greater than 30
[2024-05-11] MEDS: MECLIZINE 25 MG TAB PO SCH (15:31)
--- NOTE | 2024-05-11 22:14 | P.PN ---
Subjective Progress Note Date: 05/11/24 HISTORY OF PRESENT ILLNESS: 88-year-old new patient to our practice has been seen for the last few months with known history of hypertension, hypothyroidism, arrhythmia, chronic allergy, chronic edema, chronic dizziness with 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 She is presented to the emergency department on May 09 complaining of nausea and vomiting as well as diarrhea for 1 day with severe generalized fatigue tiredness and overall not feeling well she admitted that she been drinking so much water to keep yourself hydrated she become quite bit symptomatic with slight altered mental status with fatigue tiredness and generalized symptoms ended up coming to the emergency department shortly after midnight on May 09, 2024 where was seen and evaluated surprisingly her sodium came at 117 with chloride at 92 carbon dioxide 19 bun 20 with creatinine 0.87 her GFR at 60 blood sugar was mildly elevated magnesium was 1.7 normal troponin normal proBNP normal thyroid and urine test. Patient was diagnosed with severe hyponatremia started on fluid restriction initially treat her nausea and vomiting gentle hydration and admit patient to the hospital for the above problem. She continued to have slight lightheadedness and dizziness and claimed she already have an appointment to see Dr. Kelley at the [place] [facility] for her chronic vertigo also had an appointment to see her neurologist for her dizziness symptoms. 05/10/2024: Sodium was improved last night up to 127 and dropped down again to 125 his kidney function is much better but liver enzyme had climb up slightly this morning, CBC was still doing well. Resume all home meds patient blood pressure has been stable and better so far. 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 Continue fluid restriction at 36 ounce and continue to watch patient's sodium at least twice a day. 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 Continue IV hydration orally without IV. 05/11/2024: Sodium is up to 128 today with electrolyte has improved, liver enzyme are much better compared to yesterday and hepatitis panel came to be negative. Patient continues to be hydrated, continue to see nephrology, with the intractable nausea vomiting and severe dizziness Transderm scopolamine patch was more helpful than Zofran and meclizine. Consult neurology to see if there is any finding consistent with something and explain his severe dizziness patient is having. Seeing that neurology had ordered an MRI of the brain also consult PT and OT for gait training decision if workup is negative patient continued to have symptoms recommend to see ENT as an outpatient. Nephrology has not changed much in management today continue fluid restriction. Also had compression on the older stable on the left side of scalp will be removed today. REVIEW OF SYSTEMS: CONSTITUTIONAL: Well-developed no acute respiratory distress. EYES: No icterus sclerae, no conjunctivitis. EARS, NOSE, MOUTH, THROAT, and FACE: No sore throat, lymphadenopathy, carotid bruits or deformity. RESPIRATORY: No SOB cough or wheezes. CARDIOVASCULAR: No CP, Palpitation, PND, Orthopnea, or angina. GASTROINTESTINAL: Slight abdominal discomfort with nausea vomiting diarrhea no constipation no GI bleed or distention. GENITOURINARY: Polyuria nocturia no hematuria mild incontinence. Generalized muscle and joint pain. INTEGUMENT/BREAST: Negative for any muscular injury with mild osteoarthritis.. HEMATOLOGIC/LYMPHATIC: Negative for bleed or purpura. MUSCULOSKELTAL: Generalized muscle and joint pain. NEURLOGICAL: Positive for lightheadedness, dizziness, severe vertigo as well. BEHAVIORAL/PSYCH: Negative. ENDOCRINE: Negative. PHYSICAL EXAMINATION: General Appearance: Alert, cooperative, positive dizziness and lightheadedness. Neck HEENT: Supple, no lymphadenopathy, no thyroid enlargement, no carotid bruits. Lungs: Clear to auscultation without crackles or wheezes no rhonchi, no deformity. Chest Wall: Chest wall normal expansion with deep inspiration no tenderness and no deformity was found on exam, no costochondral pain or discomfort. Heart: Regular rate and rhythm, S1, S2 normal, no murmur, rub or gallop. Back: Symmetric, no curvature, ROM normal, no CVA tenderness. Abdomen: Soft, non-tender, bowel sounds active all four quadrants, no masses, no organomegaly. Extremities: Extremities normal, atraumatic, no cyanosis or edema. Pulses: 2+ and symmetric. Skin: Skin color, texture, tugor normal, no rashes or lesions. Neurologic: Alert oriented x 3 cranial nerves II 12 intact positive generalized fatigue tiredness and weakness no focal deficit. ASSESSMENT AND PLAN: _Acute severe hyponatremia hypovolemic sodium is up to 128 today, continue IV hydration, continue to see nephrology continue fluid restriction for 1500 cc. _Intractable nausea vomiting: Continue Zofran and proton pump inhibitor, still on meclizine but adding scopolamine patch had helped some. _Severe dizziness which most likely vertigo, patient has been seen neurology and ENT as an outpatient but consult neurology in-house to see if there is any new finding or anything need to be manage seem that ordering an MRI of the brain if that is negative we will continue to have symptoms patient will need to see ENT as an outpatient otherwise patient has an appointment with the [facility] as an outpatient after her hospitalization is complete and done. _Close head trauma and head concussion: From 8 days ago with no sign of bleeding CAT scan initially was negative the patient will be going for MRI of the brain to make sure is no other subclinical finding. _History of arrhythmia: With no flareup lately has been doing well. _Hypertension: Has been on hydralazine 25 mg 3 times a day with meals along with verapamil SR 120 mg a day still on valsartan 320 mg daily continue medication. Resume all home meds and titrate hydralazine if needed. _Hypothyroidism: Remain on levothyroxine 25 mcg daily resume medication. Ch ronic allergy: Has been on _Fexofenadine along with Flonase nasal spray. Still on Singulair as well. _GI prophylaxis: Patient be on Pepcid 20 mg daily. Discussion: Dizziness and hyponatremia slightly better but continue fluid restriction, neuroconsultation was done patient scheduled for MRI of the brain continue transdermal scopolamine patch and prepare hopefully for seen ENT as an outpatient as well. Objective - Vital Signs Vital signs: Vital Signs Temp 98.2 F 05/11/24 04:00 Pulse 85 05/11/24 09:25 Resp 18 05/11/24 09:25 BP 131/69 05/11/24 09:00 Pulse Ox 97 05/11/24 09:00 FiO2 Intake & Output 05/10/24 05/11/24 05/11/24 18:59 06:59 18:59 Intake Total 35 Output Total 950 800 Balance 35 -950 -800 Weight 65.5 kg Intake: Oral 35 Output: Urine 950 800 Other: # Voids 0 # Bowel Movements 0 - Labs CBC & Chem 7: 05/11/24 06:55 05/11/24 06:55 Labs: Abnormal Lab Results - Last 24 Hours (Table) 05/11/24 Range/Units 06:55 Sodium 128 L (137-145) mmol/L Chloride 96 L (98-107) mmol/L AST 73 H (14-36) U/L ALT 138 H (4-34) U/L Total Protein 6.0 L (6.3-8.2) g/dL
[2024-05-12 06:44] LABS: HCT 36.9 % (34.0-46.0); HGB 12.1 gm/dL (11.4-16.0); MCH 31.2 pg (25.0-35.0); MCHC 32.9 g/dL (31.0-37.0); MCV 94.7 fL (80.0-100.0); Mean Platelet Volume 7.5; Platelet Count 166 k/uL (150-450); RDW 13.3 % (11.5-15.5)
[2024-05-12 07:00] LABS: ALT 82 U/L (4-34); AST 41 U/L (14-36); African American GFR (CKD) 47 (>60 ml/min/1.73 sqM); Albumin 2.9 g/dL (3.5-5.0); Alkaline Phosphatase 88 U/L (38-126); Anion Gap 4 mmol/L; Blood Urea Nitrogen 26 mg/dL (7-17); Calcium 8.7 mg/dL (8.4-10.2); Carbon Dioxide 24 mmol/L (22-30); Chloride 102 mmol/L (98-107); Glucose 87 mg/dL (74-99); Non-African American GFR(CKD) 41 (>60 ml/min/1.73 sqM); Potassium 4.3 mmol/L (3.5-5.1); Sodium 130 mmol/L (137-145); Total Bilirubin 0.4 mg/dL (0.2-1.3); Total Protein 5.1 g/dL (6.3-8.2)
[2024-05-12 13:05] VITALS: BMI 23.5
--- NOTE | 2024-05-12 14:20 | P.PN ---
Subjective patient is seen for follow-up for hyponatremia. Serum sodium has improved to 130 today. Tolerating oral intake. Maintained on saline at 75 mL an hour. Objective - Vital Signs Vital signs: Vital Signs Temp 97.2 F L 05/12/24 04:10 Pulse 80 05/12/24 12:00 Resp 16 05/12/24 12:00 BP 90/47 05/12/24 12:00 Pulse Ox 98 05/12/24 12:00 FiO2 Intake & Output 05/11/24 05/12/24 05/12/24 18:59 06:59 18:59 Intake Total 240 250 120 Output Total 800 500 Balance -560 -250 120 Weight 62.1 kg 62.1 kg Intake: IV 10 Invasive Line 1 10 Oral 240 240 120 Output: Urine 800 500 Other: Voiding Method Indwelling Catheter Indwelling Catheter # Bowel Movements 1 1 - Exam patient is awake, comfortable, no acute distress. 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 Further worsened with the use of thiazide diuretic. Urine sodium 25 and urine osmolality 98. Sodium level 117 on admission and 130 now. Maintained on normal saline 2. Benign hypertension. 3. History of vertigo. Plan: Decrease antihypertensive medications due to hypotension. Patient is complaining of dizziness which could be related to hypotension. Continue with saline Possible discharge tomorrow if blood pressure is stable
[2024-05-12] MEDS: hydrALAZINE HCL 25 MG TAB PO SCH (20:25)
--- NOTE | 2024-05-12 21:26 | P.PN ---
Subjective Progress Note Date: 05/12/24 HISTORY OF PRESENT ILLNESS: 88-year-old new patient to our practice has been seen for the last few months with known history of hypertension, hypothyroidism, arrhythmia, chronic allergy, chronic edema, chronic dizziness with 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 She is presented to the emergency department on May 09 complaining of nausea and vomiting as well as diarrhea for 1 day with severe generalized fatigue tiredness and overall not feeling well she admitted that she been drinking so much water to keep yourself hydrated she become quite bit symptomatic with slight altered mental status with fatigue tiredness and generalized symptoms ended up coming to the emergency department shortly after midnight on May 09, 2024 where was seen and evaluated surprisingly her sodium came at 117 with chloride at 92 carbon dioxide 19 bun 20 with creatinine 0.87 her GFR at 60 blood sugar was mildly elevated magnesium was 1.7 normal troponin normal proBNP normal thyroid and urine test. Patient was diagnosed with severe hyponatremia started on fluid restriction initially treat her nausea and vomiting gentle hydration and admit patient to the hospital for the above problem. She continued to have slight lightheadedness and dizziness and claimed she already have an appointment to see Dr. Kelley at the [place] [facility] for her chronic vertigo also had an appointment to see her neurologist for her dizziness symptoms. 05/10/2024: Sodium was improved last night up to 127 and dropped down again to 125 his kidney function is much better but liver enzyme had climb up slightly this morning, CBC was still doing well. Resume all home meds patient blood pressure has been stable and better so far. 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 Continue fluid restriction at 36 ounce and continue to watch patient's sodium at least twice a day. 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 Continue IV hydration orally without IV. 05/11/2024: Sodium is up to 128 today with electrolyte has improved, liver enzyme are much better compared to yesterday and hepatitis panel came to be negative. Patient continues to be hydrated, continue to see nephrology, with the intractable nausea vomiting and severe dizziness Transderm scopolamine patch was more helpful than Zofran and meclizine. Consult neurology to see if there is any finding consistent with something and explain his severe dizziness patient is having. Seeing that neurology had ordered an MRI of the brain also consult PT and OT for gait training decision if workup is negative patient continued to have symptoms recommend to see ENT as an outpatient. Nephrology has not changed much in management today continue fluid restriction. Also had compression on the older stable on the left side of scalp will be removed today. 05/12/2024: Significant improvement with her lab today sodium is up to 130 bun was up little bit with creatinine to 1.19 still on IV hydration liver function test are much better. Patient was evaluated by neurology yesterday and ordered for an MRI of the brain for an evaluation of her severe dizziness and vestibular symptoms with intractable nausea and vomiting. Procedure has been scheduled but not done yet. Meanwhile continue recommendation by nephrology. With her close head trauma and the osmani on the right side will be REVIEW OF SYSTEMS: CONSTITUTIONAL: Well-developed no acute respiratory distress. EYES: No icterus sclerae, no conjunctivitis. EARS, NOSE, MOUTH, THROAT, and FACE: No sore throat, lymphadenopathy, carotid bruits or deformity. RESPIRATORY: No SOB cough or wheezes. CARDIOVASCULAR: No CP, Palpitation, PND, Orthopnea, or angina. GASTROINTESTINAL: Slight abdominal discomfort with nausea vomiting diarrhea no constipation no GI bleed or distention. GENITOURINARY: Polyuria nocturia no hematuria mild incontinence. Generalized muscle and joint pain. INTEGUMENT/BREAST: Negative for any muscular injury with mild osteoarthritis.. HEMATOLOGIC/LYMPHATIC: Negative for bleed or purpura. MUSCULOSKELTAL: Generalized muscle and joint pain. NEURLOGICAL: Positive for lightheadedness, dizziness, severe vertigo as well. BEHAVIORAL/PSYCH: Negative. ENDOCRINE: Negative. PHYSICAL EXAMINATION: General Appearance: Alert, cooperative, positive dizziness and lightheadedness. Neck HEENT: Supple, no lymphadenopathy, no thyroid enlargement, no carotid bruits. Lungs: Clear to auscultation without crackles or wheezes no rhonchi, no deformity. Chest Wall: Chest wall normal expansion with deep inspiration no tenderness and no deformity was found on exam, no costochondral pain or discomfort. Heart: Regular rate and rhythm, S1, S2 normal, no murmur, rub or gallop. Back: Symmetric, no curvature, ROM normal, no CVA tenderness. Abdomen: Soft, non-tender, bowel sounds active all four quadrants, no masses, no organomegaly. Extremities: Extremities normal, atraumatic, no cyanosis or edema. Pulses: 2+ and symmetric. Skin: Skin color, texture, tugor normal, no rashes or lesions. Neurologic: Alert oriented x 3 cranial nerves II 12 intact positive generalized fatigue tiredness and weakness no focal deficit. ASSESSMENT AND PLAN: _Acute severe hyponatremia hypovolemic sodium is up to 130 today, continue IV hydration, continue to see nephrology continue fluid restriction for 1500 cc. _Intractable nausea vomiting: Continue Zofran and proton pump inhibitor, still on meclizine but adding scopolamine patch had helped some. _Severe dizziness which most likely vertigo, she is seen neurology schedule an MRI of the brain in the meanwhile remain on Transderm scopolamine patch along with Antivert on as-needed basis. _Close head trauma and head concussion: From 8 days ago with no sign of bleeding CAT scan initially was negative the patient will be going for MRI of the brain to make sure is no other subclinical finding. _History of arrhythmia: With no flareup lately has been doing well. _Hypertension: Has been on hydralazine 25 mg 3 times a day with meals along with verapamil SR 120 mg a day still on valsartan 320 mg daily continue medication. Resume all home meds and titrate hydralazine if needed. _Hypothyroidism: Remain on levothyroxine 25 mcg daily resume medication. Chronic allergy: Has been on _Fexofenadine along with Flonase nasal spray. Still on Singulair as well. _GI prophylaxis: Patient be on Pepcid 20 mg daily. Discussion: The patient will initiate physical therapy and walk with a walker no further nausea and vomiting osmani were removed from her laceration on the head, will continue little bit more aggressive physical therapy and prepare hopefully for home with using a walker in the next day or 2. Objective - Vital Signs Vital signs: Vital Signs Temp 97.2 F L 05/12/24 04:10 Pulse 71 05/12/24 04:10 Resp 14 05/12/24 04:10 BP 96/65 05/12/24 04:10 Pulse Ox 94 L 05/12/24 04:10 FiO2 Intake & Output 05/11/24 05/11/24 05/12/24 06:59 18:59 06:59 Intake Total 240 250 Output Total 950 800 500 Balance -950 -560 -250 Weight 65.5 kg 62.1 kg Intake: IV 10 Invasive Line 1 10 Oral 240 240 Output: Urine 950 800 500 Other: Voiding Method Indwelling Catheter # Bowel Movements 1 1 - Labs CBC & Chem 7: 05/12/24 06:18 05/12/24 06:18 Labs: Abnormal Lab Results - Last 24 Hours (Table) 05/11/24 Range/Units 06:55 Sodium 128 L (137-145) mmol/L Chloride 96 L (98-107) mmol/L AST 73 H (14-36) U/L ALT 138 H (4-34) U/L Total Protein 6.0 L (6.3-8.2) g/dL
--- NOTE | 2024-05-12 22:35 | P.PN ---
Subjective Progress Note Date: 05/12/24 Patient was initially seen by Dr. Moreno Navarro. Please refer to his note for details. Patient is a 88-year-old female with recent mechanical fall with head trauma and worsening of the vertigo. Patient's daughter was also present today. She mentions that patient has history of vertigo for about 10 years. Patient had a mechanical fall on 05/01/2024. Her vertigo started coming back on 05/07/2024 and she came to the hospital on 05/08/2024. At present she feels generalized weakness from just laying around. Patient's daughter states that she just started eating yesterday. Overall her dizziness is much better. She gets little dizziness when she gets up to go to the bathroom. Objective - Vital Signs Vital signs: Vital Signs Temp 97.2 F L 05/12/24 04:10 Pulse 80 05/12/24 12:00 Resp 16 05/12/24 12:00 BP 90/47 05/12/24 12:00 Pulse Ox 98 05/12/24 12:00 FiO2 Intake & Output 05/11/24 05/12/24 05/12/24 18:59 06:59 18:59 Intake Total 240 250 480 Output Total 800 500 Balance -560 -250 480 Weight 62.1 kg 62.1 kg Intake: IV 10 Invasive Line 1 10 Oral 240 240 480 Output: Urine 800 500 Other: Voiding Method Indwelling Catheter Indwelling Catheter # Bowel Movements 1 1 1 - Exam On examination patient is alert and awake in no distress. Speech and language functions are normal. Patient is very hard of hearing. Muscle strength is normal. No ataxia for [id number] testing bilaterally. Sensory to touch is equal. - Labs CBC & Chem 7: 05/12/24 06:18 05/12/24 06:18 Labs: Abnormal Lab Results - Last 24 Hours (Table) 05/12/24 Range/Units 06:18 Sodium 130 L (137-145) mmol/L BUN 26 H (7-17) mg/dL Creatinine 1.19 H (0.52-1.04) mg/dL AST 41 H (14-36) U/L ALT 82 H (4-34) U/L Total Protein 5.1 L (6.3-8.2) g/dL Albumin 2.9 L (3.5-5.0) g/dL Assessment and Plan Assessment: This is an 88-year-old woman with history of hypertension, vertigo who had a mechanical fall on May 01, 2024 and that she slipped and hit her head but denies any loss of consciousness. Ever since the head trauma she has been having severe dizziness positional and had nausea vomiting. Acute hyponatremia with sodium of 117. Acute on chronic vertigo in addition with nausea and vomiting. Her current symptoms were exacerbated because of head trauma Acute hyponatremia and nephrology feels it is due to tea/toast syndrome and it is improving with fluids. Her sodium was as low as 117 and currently is 130 Recent head concussion due to recent fall History of vertigo History of hypertension Severe hard of hearing Plan: Await MRI of the brain with and without Consulted PT and OT for gait training Patient has a scopolamine patch. She is on meclizine 12.5 mg 1 tablet 4 times daily as needed and Dr. Navarro has changed it to scheduled for 7 days and after that as needed. If workup is negative and patient continues to have symptoms then recommend the patient to follow-up with ENT as an outpatient. Nephrology is on board Neurologically clear, if the MRI comes back normal.
[2024-05-13 07:53] LABS: African American GFR (CKD) 54 (>60 ml/min/1.73 sqM); Anion Gap 3 mmol/L; Blood Urea Nitrogen 25 mg/dL (7-17); Calcium 8.9 mg/dL (8.4-10.2); Carbon Dioxide 27 mmol/L (22-30); Chloride 104 mmol/L (98-107); Glucose 80 mg/dL (74-99); Non-African American GFR(CKD) 47 (>60 ml/min/1.73 sqM); Potassium 4.3 mmol/L (3.5-5.1); Sodium 134 mmol/L (137-145)
[2024-05-13] MEDS: VALSARTAN 80 MG TAB PO SCH (08:14)
[2024-05-13 11:08] VITALS: BP 115/69; PULSE 68; RESP 22; TEMP 97.8
--- NOTE | 2024-05-13 15:42 | MR ---
EXAMINATION TYPE: MR brain wo/w con DATE OF EXAM: 05/13/2024 3:32 PM CLINICAL INDICATION: Female, 88 years old with history of vertigo; COMPARISON: 05/09/2024 11/23/2014 TECHNIQUE: Multi planar, multi sequence imaging was performed through the brain including: T1, T2, In version recovery, susceptibility weighted imaging and gradient echo imaging and Diffusion weighted im aging. The patient was then given intravenous contrast and multi planar, T1 fat-saturation images wer e obtained. IV Contrast: 6.5 cc Gadavist FINDINGS: Cortical height T2 signal in the left occipital lobe thought to represent artifact. No sujey elate on ADC. The -white junctions, ventricular system, basal cisterns appear unremarkable. Diffusion-weighted imaging shows no evidence of restricted diffusion to suggest acute/subacute infarct. Intracranial ar terial flow voids are maintained. Midline structures show no abnormality. Scattered foci of high T2 s ignal intensity are seen within the periventricular white matter. The susceptibility weighted images do not reveal any evidence for micro-hemorrhage. After administration of gadolinium, no abnormal enha ncement is seen. The bone marrow signal is within normal limits. Paranasal sinuses and mastoid air cells: No significant paranasal sinus disease. Visualized orbits: Bilateral aphakia IMPRESSION: 1. No evidence of intracranial mass, acute/subacute infarct, or abnormal enhancement. 2. Nonspecific white matter changes, likely related to small vessel ischemic disease. [facility], , 05/13/2024 3:40 PM
--- NOTE | 2024-05-13 17:13 | P.PN ---
Subjective patient is seen for follow-up for hyponatremia. Serum sodium has improved to 134 today. Tolerating oral intake. Saline was discontinued this morning. Scheduled for MRI today Objective - Vital Signs Vital signs: Vital Signs Temp 97.8 F 05/13/24 11:06 Pulse 68 05/13/24 11:06 Resp 22 05/13/24 11:06 BP 115/69 05/13/24 11:06 Pulse Ox 99 05/13/24 11:06 FiO2 Intake & Output 05/12/24 05/13/24 05/13/24 18:59 06:59 18:59 Intake Total 480 120 360 Output Total 500 1200 550 Balance -20 -1080 -190 Weight 62.1 kg 62 kg Intake: Oral 480 120 360 Output: Urine 500 1200 550 Other: Voiding Method Indwelling Catheter Indwelling Catheter Indwelling Catheter # Bowel Movements 1 1 - Exam patient is awake, comfortable, no acute distress. Examination of the heart S1 and S2 Examination of the lungs bilateral breath sounds are heard Abdomen is soft nontender Examination of lower extremities shows no significant edema [employer] exam grossly intact Patient is hard of hearing - Labs CBC & Chem 7: 05/12/24 06:18 05/13/24 07:01 Labs: Abnormal Lab Results - Last 24 Hours (Table) 05/13/24 Range/Units 07:01 Sodium 134 L (137-145) mmol/L BUN 25 H (7-17) mg/dL Creatinine 1.06 H (0.52-1.04) mg/dL Assessment and Plan Assessment: 1. Hyponatremia due to Tea/[place] syndrome improved with fluid bolus. Further worsened with the use of thiazide diuretic. Urine sodium 25 and urine osmolality 98. Sodium level 117 on admission and 134 now. Status post normal saline. Discontinued today 2. Benign hypertension. 3. History of vertigo. Plan: Agree with discontinuation of saline. Encouraged increased oral intake. Stable for discharge from nephrology standpoint. Check sodium if patient is not discharged tomorrow
--- NOTE | 2024-05-18 08:55 | P.DS ---
Providers Date of admission: 05/09/24 01:48 Expected date of discharge: 05/13/24 Attending physician: Federico Lee Consults: 05/09/24 01:47 Consult Physician Routine Consulting Provider: Fabian Espinoza Consult Reason/Comments: hypoNa Do you want consulting provider notified?: Yes 05/11/24 10:51 Consult Physician Routine Consulting Provider: Moreno Navarro Consult Reason/Comments: severe Dizziness Do you want consulting provider notified?: Yes Primary care physician: [facility] Course: HISTORY OF PRESENT ILLNESS: 88-year-old new patient to our practice has been seen for the last few months with known history of hypertension, hypothyroidism, arrhythmia, chronic allergy, chronic edema, chronic dizziness with 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 She is presented to the emergency department on May 09 complaining of nausea and vomiting as well as diarrhea for 1 day with severe generalized fatigue tiredness and overall not feeling well she admitted that she been drinking so much water to keep yourself hydrated she become quite bit symptomatic with slight altered mental status with fatigue tiredness and generalized symptoms ended up coming to the emergency department shortly after midnight on May 09, 2024 where was seen and evaluated surprisingly her sodium came at 117 with chloride at 92 carbon dioxide 19 bun 20 with creatinine 0.87 her GFR at 60 blood sugar was mildly elevated magnesium was 1.7 normal troponin normal proBNP normal thyroid and urine test. Patient was diagnosed with severe hyponatremia started on fluid restriction initially treat her nausea and vomiting gentle hydration and admit patient to the hospital for the above problem. She continued to have slight lightheadedness and dizziness and claimed she already have an appointment to see Dr. Kelley at the [facility] for her chronic vertigo also had an appointment to see her neurologist for her dizziness symptoms. 05/10/2024: Sodium was improved last night up to 127 and dropped down again to 125 his kidney function is much better but liver enzyme had climb up slightly this morning, CBC was still doing well. Resume all home meds patient blood pressure has been stable and better so far. 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 Continue fluid restriction at 36 ounce and continue to watch patient's sodium at least twice a day. 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 Continue IV hydration orally without IV. 05/11/2024: Sodium is up to 128 today with electrolyte has improved, liver enzyme are much better compared to yesterday and hepatitis panel came to be negative. Patient continues to be hydrated, continue to see nephrology, with the intractable nausea vomiting and severe dizziness Transderm scopolamine patch was more helpful than Zofran and meclizine. Consult neurology to see if there is any finding consistent with something and explain his severe dizziness patient is having. Seeing that neurology had ordered an MRI of the brain also consult PT and OT for gait training decision if workup is negative patient continued to have symptoms recommend to see ENT as an outpatient. Nephrology has not changed much in management today continue fluid restriction. Also had compression on the older stable on the left side of scalp will be removed today. 05/12/2024: Significant improvement with her lab today sodium is up to 130 bun was up little bit with creatinine to 1.19 still on IV hydration liver function test are much better. Patient was evaluated by neurology yesterday and ordered for an MRI of the brain for an evaluation of her severe dizziness and vestibular symptoms with intractable nausea and vomiting. Procedure has been scheduled but not done yet. Meanwhile continue recommendation by nephrology. With her close head trauma and the osmani on the right side will be 05/13/2024: Hyponatremia is corrected nicely with sodium up to 134 hemoglobin hematocrit was stable kidney function with GFR up to 47 percentile. MRI of the brain finally was done and completed finding were consistent with no evidence of intracranial mass acute or subacute infarct or abnormal enhancement nonspecific white matter changes likely related to small vessel disease. The patient is doing much better able to ambulate with minimal help using a walker she will be discharged home today to follow-up with her neurologist still have follow-up appointment with the [facility] institution also will follow-up with neurology in short period of time. REVIEW OF SYSTEMS: CONSTITUTIONAL: Well-developed no acute respiratory distress. EYES: No icterus sclerae, no conjunctivitis. EARS, NOSE, MOUTH, THROAT, and FACE: No sore throat, lymphadenopathy, carotid bruits or deformity. RESPIRATORY: No SOB cough or wheezes. CARDIOVASCULAR: No CP, Palpitation, PND, Orthopnea, or angina. GASTROINTESTINAL: Slight abdominal discomfort with nausea vomiting diarrhea no constipation no GI bleed or distention. GENITOURINARY: Polyuria nocturia no hematuria mild incontinence. Generalized muscle and joint pain. INTEGUMENT/BREAST: Negative for any muscular injury with mild osteoarthritis.. HEMATOLOGIC/LYMPHATIC: Negative for bleed or purpura. MUSCULOSKELTAL: Generalized muscle and joint pain. NEURLOGICAL: Positive for lightheadedness, dizziness, severe vertigo as well. BEHAVIORAL/PSYCH: Negative. ENDOCRINE: Negative. PHYSICAL EXAMINATION: General Appearance: Alert, cooperative, positive dizziness and lightheadedness. Neck HEENT: Supple, no lymphadenopathy, no thyroid enlargement, no carotid bruits. Lungs: Clear to auscultation without crackles or wheezes no rhonchi, no deformity. Chest Wall: Chest wall normal expansion with deep inspiration no tenderness and no deformity was found on exam, no costochondral pain or discomfort. Heart: Regular rate and rhythm, S1, S2 normal, no murmur, rub or gallop. Back: Symmetric, no curvature, ROM normal, no CVA tenderness. Abdomen: Soft, non-tender, bowel sounds active all four quadrants, no masses, no organomegaly. Extremities: Extremities normal, atraumatic, no cyanosis or edema. Pulses: 2+ and symmetric. Skin: Skin color, texture, tugor normal, no rashes or lesions. Neurologic: Alert oriented x 3 cranial nerves II 12 intact positive generalized fatigue tiredness and weakness no focal deficit. ASSESSMENT AND PLAN: _Acute severe hyponatremia hypovolemic sodium is up to 130 today, continue IV hydration, continue to see nephrology continue fluid restriction for 1500 cc. _Intractable nausea vomiting: Continue Zofran and proton pump inhibitor, still on meclizine but adding scopolamine patch had helped some. _Severe dizziness which most likely vertigo, she is seen neurology schedule an MRI of the brain in the meanwhile remain on Transderm scopolamine patch along with Antivert on as-needed basis. _Close head trauma and head concussion: From 8 days ago with no sign of bleeding CAT scan initially was negative the patient will be going for MRI of the brain to make sure is no other subclinical finding. _History of arrhythmia: With no flareup lately has been doing well. _Hypertension: Has been on hydralazine 25 mg 3 times a day with meals along with verapamil SR 120 mg a day still on valsartan 320 mg daily continue medication. Resume all home meds and titrate hydralazine if needed. _Hypothyroidism: Remain on levothyroxine 25 mcg daily resume medication. Chronic allergy: Has been on _Fexofenadine along with Flonase nasal spray. Still on Singulair as well. _GI prophylaxis: Patient be on Pepcid 20 mg daily. Discussion: MRI of the brain was performed and shows no major abnormality require any attention. Sodium is up to 132 patient is very stable to be discharged home today to follow-up the rest of her study as an outpatient. Hospital course: She was hospitalized on 05/08/2024 with severe acute complaint of nausea vomiting as well as diarrhea for 1 day and aggravated with severe fatigue and not feeling well overall not able to eat or drink and continue to have severe symptoms. Originally she was seen at the emergency department on 05/01/2024 for falling. Close head trauma with since then patient did not feel well at the presentation on 08 May patient was not feeling well at all with addition to it found sodium of 117 with a chloride of 92. Her magnesium was 1.7 with normal troponin and proBNP patient was diagnosed with severe acute hyponatremia started on fluid restriction treat her symptom of nausea and vomiting as well. CAT scan of the brain original brain was found with no major abnormality. With recurrent symptoms and complaint patient is seen nephrology corrected her sodium originally to 125 and 127. Patient continued to be severely dizzy not able to move out of bed not to be able to ambulate and up seen neurology neurology believe having to have an MRI to make sure there is no acute abnormality exist in the posterior fossa or any area of concern specially related to aneurysm or acute stroke in the posterior part of the brain. MRI of the brain was delayed not done ~15 finding consistent with no major abnormality require any intervention at the time. 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 Time spent on patient discharge was over 35 minutes. Patient Condition at Discharge: Fair Plan - Discharge Summary Discharge Rx Participant: Yes New Discharge Prescriptions: New Meclizine [Antivert] 12.5 mg PO TID #100 tab Scopolamine [Scopolamine 1 MG/72 HR patch] 1 patch TRANSDERM Q72H #3 patch Acetaminophen Tab [Tylenol] 650 mg PO Q6HR PRN tab PRN Reason: Fever and/ or Mild Pain Continue fluocinolone acetonide oiL [fluocinolone acetonide oiL 0.01% (Otic)] 3 - 5 drops BOTH EARS HS PRN PRN Reason: itchiness cycloSPORINE [Restasis] 1 drop BOTH EYES BID Levothyroxine Sodium [Synthroid] 25 mcg PO DAILY hydrALAZINE HCL [Apresoline] 25 mg PO TID-W/MEALS Doxycycline Monohydrate [Monodox] 100 mg PO DIRECTED Fluocinonide 0.05% Solution 1 applic TOPICAL HS PRN PRN Reason: scalp irritation Fexofenadine/Pseudoephedrine [Katlyn-D 12 Hour Tablet] 1 tab PO DAILY PRN PRN Reason: allergy symptoms & congestion Ipratropium [place] 0.06%Nasal [Atrovent Nasal 0.06%] 2 spr EA NOSTRIL BID PRN PRN Reason: Congestion Triamterene-Hctz 37.5-25Mg [Maxzide 37.5-25] 1 tab PO Q48H Verapamil HCl [Verapamil Sr] 120 mg PO DAILY Dupilumab [Dupixent Pen] 300 mg SQ Q14D Fluticasone Nasal [place] [Flonase Nasal [place]] 1 - 2 spr EA NOSTRIL DIRECTED PRN PRN Reason: Allergy Symptoms Montelukast [Singulair] 10 mg PO HS Changed Valsartan 160 mg PO DAILY #0 Discharge Medication List fluocinolone acetonide oiL [fluocinolone acetonide oiL 0.01% (Otic)] 3 - 5 drops BOTH EARS HS PRN 07/06/20 [History] Ipratropium [place] 0.06%Nasal [Atrovent Nasal 0.06%] 2 spr EA NOSTRIL BID PRN 11/03/21 [History] Triamterene-Hctz 37.5-25Mg [Maxzide 37.5-25] 1 tab PO Q48H 11/03/21 [History] Verapamil HCl [Verapamil Sr] 120 mg PO DAILY 11/03/21 [History] cycloSPORINE [Restasis] 1 drop BOTH EYES BID 11/03/21 [History] Dupilumab [Dupixent Pen] 300 mg SQ Q14D 04/08/23 [History] Levothyroxine Sodium [Synthroid] 25 mcg PO DAILY 04/08/23 [History] Doxycycline Monohydrate [Monodox] 100 mg PO DIRECTED 05/01/24 [History] Fluocinonide 0.05% Solution 1 applic TOPICAL HS PRN 05/01/24 [History] Fluticasone Nasal [place] [Flonase Nasal [place]] 1 - 2 spr EA NOSTRIL DIRECTED PRN 05/01/24 [History] hydrALAZINE HCL [Apresoline] 25 mg PO TID-W/MEALS 05/01/24 [History] Fexofenadine/Pseudoephedrine [Katlyn-D 12 Hour Tablet] 1 tab PO DAILY PRN 05/09/24 [History] Montelukast [Singulair] 10 mg PO HS 05/09/24 [History] Acetaminophen Tab [Tylenol] 650 mg PO Q6HR PRN tab 05/13/24 [Rx] Meclizine [Antivert] 12.5 mg PO TID #100 tab 05/13/24 [Rx] Scopolamine [Scopolamine 1 MG/72 HR patch] 1 patch TRANSDERM Q72H #3 patch 05/13/24 [Rx] Valsartan 160 mg PO DAILY #0 05/13/24 [Rx] Follow up Appointment(s)/Referral(s): Mckenzie Danielson MD [Primary Care Provider] - 1-2 days Patient Instructions/Handouts: Hyponatremia (DC) Discharge/Stand Alone Forms: Who Do I Call?, Help In The Home, Outpatient Counseling Discharge Disposition: HOME WITH HOME HEALTH SERVICES
== END 2024-05-13 17:02 | disposition home health service (06) | DRG 641 ==
LOC: EC 23:29 → 3SCARD 05-09 01:48
PROVIDERS: ADMIT Internal Medicine Geriatric Medicine; ATTEND Internal Medicine Geriatric Medicine
DX: E87.1 Hypo-osmolality and hyponatremia (principal); S06.0XAA Concussion with loss of consciousness status unknown, initial encounter; H81.399 Other peripheral vertigo, unspecified ear; E86.0 Dehydration; I10 Essential (primary) hypertension; E07.9 Disorder of thyroid, unspecified; E03.9 Hypothyroidism, unspecified; H91.90 Unspecified hearing loss, unspecified ear; E86.1 Hypovolemia; H35.3230 Exudative age-related macular degeneration, bilateral, stage unspecified; W01.0XXA Fall on same level from slipping, tripping and stumbling without subsequent striking against object, initial encounter; Z79.890 Hormone replacement therapy; Z79.899 Other long term (current) drug therapy; Z87.891 Personal history of nicotine dependence; Z88.5 Allergy status to narcotic agent; Z88.0 Allergy status to penicillin; Z88.8 Allergy status to other drugs, medicaments and biological substances
CPT/HCPCS: 36415; 70450; 70553; 71045; 74176; 80048; 80053; 80074; 81003; 83605; 83735; 83880; 83930; 83935; 84100; 84295; 84300; 84443; 84484; 85025; 85027; 85610; 85730; 93005; 94760; 96361; 96374; 96375; 99291

== ENCOUNTER → 2024-10-02 | Outpatient (CLI) | payer MEDICARE, OTHER ==
[2024-10-02 15:30] LABS: African American GFR (CKD) 45 (>60 ml/min/1.73 sqM); Blood Urea Nitrogen 33 mg/dL (7-17); Non-African American GFR(CKD) 39 (>60 ml/min/1.73 sqM)
--- NOTE | 2024-10-03 06:03 | CT ---
EXAMINATION TYPE: CT angio neck DATE OF EXAM: 10/02/2024 COMPARISON: None. CLINICAL INDICATION: Female, 89 years old with history of R42 VERTIGO; PHH, Pt has been having vertig o spells since Mar 2024. TECHNIQUE: CTA scan of the head and neck is performed with IV Contrast, patient injected with 65ml m L of Isovue 370, axial images are obtained, coronal and sagittal reformatted images are reviewed. 3D reconstructed images are created on an independent workstation and reviewed. CT DLP: 189.4 mGycm Automated exposure control for dose reduction was used. NASCET criteria was used in interpretation of this exam? FINDINGS: Right Carotid System: The common carotid artery and external carotid artery are patent. The carotid bifurcation demonstrate s no evidence of hemodynamically significant stenosis. The remaining portions of the internal carotid artery demonstrate normal size without significant narrowing. Mild peripheral plaque distally is pre sent. Left Carotid System: The common carotid artery and external carotid artery are patent. The carotid bifurcation demonstrate s no evidence of hemodynamically significant stenosis. Mild to minimal peripheral plaque is present. The remaining portions of the internal carotid artery demonstrate normal size without significant betzaida rowing. Mild peripheral plaque distally is present. Vertebral arteries are patent without evidence hemodynamically significant stenosis. Codominant verte bral arteries are noted. There is a three-vessel aortic arch. Moderate peripheral plaque is present. The origins of the great vessels are patent. No evidence of hemodynamically significant stenosis. Other: Mild underlying emphysematous change and upper lungs is seen. There is grade 1 retrolisthesis C4 on C5 and C5 on C6 with moderate disc space narrowing at these lev els. Scleral calcifications in the left globe are partially imaged. IMPRESSION: 1. No evidence of significant stenosis at the carotid bifurcations. [facility], , 10/03/2024 6:01 AM
== END | disposition home or self-care (01) ==
LOC: RADCTMAIN 14:35
PROVIDERS: ATTEND Family Medicine
DX: R42 Dizziness and giddiness (principal)
CPT/HCPCS: 82565; 84520; 70498; 36415; Q9967